=== PATIENT | female | born 1955 | race Caucasian/White ===

== ENCOUNTER 2018-12-14 20:11 | Inpatient (IN) ==
[2018-12-14 21:38] LABS: Basophils # 0.1 10*3/uL (0.0-0.2); Basophils % 0.7 % (0.0-0.8); Eosinophils # 0.2 10*3/uL (0.0-0.87); Eosinophils % 1.8 % (0.00-10.9); Hemoglobin 12.9 GM/DL (12.0-16.0); Immature Granulocytes % 0.8 %; Immature Granulocytes Absolute 0.07 #; Lymphocytes # 1.7 10*3/uL (1.4-4.0); Lymphocytes % 18.6 % (21.3-54.2); Mean Corpuscular HGB Conc 32.3 GM/DL (32-36); Mean Corpuscular Volume 94.3 FL (87-102); Mean Platelet Volume 10.8 FL (9.6-12.0); Monocytes % 7.7 % (1.7-12.7); Neutrophils % 70.4 % (38.7-73.9); Platelet Count 296 T/CUMM (130-400); Red Blood Count 4.24 MC/CUMM (3.8-5.5); Red Cell Distribution Width 14.5 % (9.3-17.3); White Blood Count 9.1 T/CUMM (4-12)
[2018-12-14 21:55] LABS: Calcium 8.8 MG/DL (8.5-10.1); Osmolality,Calculated 283.3 MOS/KG (273-304)
[2018-12-14] MEDS ORDERED: CEFTAROLINE 600 MG in SODIUM CHLORIDE 0.9% 100 ML IV STA (22:01)
[2018-12-14] MEDS ORDERED: MORPHINE 4 MG/1 ML VIAL IV STA (22:40)
[2018-12-14] MEDS ORDERED: ONDANSETRON 4 MG/2 ML VIAL IV PRN (22:44)
[2018-12-15] MEDS: MORPHINE 4 MG/1 ML VIAL IV PRN ×3 (02:56→18:34)
[2018-12-15 07:08] LABS: Basophils # 0.1 10*3/uL (0.0-0.2); Basophils % 0.7 % (0.0-0.8); Eosinophils # 0.2 10*3/uL (0.0-0.87); Eosinophils % 1.9 % (0.00-10.9); Hematocrit 39.4 VOL% (35.7-47.0); Hemoglobin 12.4 GM/DL (12.0-16.0); Immature Granulocytes % 0.7 %; Immature Granulocytes Absolute 0.06 #; Lymphocytes # 1.8 10*3/uL (1.4-4.0); Lymphocytes % 20.8 % (21.3-54.2); Mean Corpuscular HGB Conc 31.5 GM/DL (32-36); Mean Corpuscular Volume 96.3 FL (87-102); Mean Platelet Volume 10.9 FL (9.6-12.0); Monocytes % 9.5 % (1.7-12.7); Neutrophils % 66.4 % (38.7-73.9); Platelet Count 262 T/CUMM (130-400); Red Blood Count 4.09 MC/CUMM (3.8-5.5); Red Cell Distribution Width 14.7 % (9.3-17.3); White Blood Count 8.6 T/CUMM (4-12)
[2018-12-15 07:35] LABS: Bilirubin,Total 0.5 MG/DL (0.2-1.0); Osmolality,Calculated 284.1 MOS/KG (273-304); Total Protein 7.1 G/DL (6.4-8.3)
[2018-12-15] MEDS: BACITRACIN OINT 0.9 GM PACK TOP SCH ×3 (10:15→22:19)
[2018-12-15] MEDS: LEVOTHYROXINE 150 MCG TABLET PO SCH (10:15)
[2018-12-15] MEDS: LISINOPRIL 10 MG TABLET PO SCH (10:16)
[2018-12-15] MEDS: ENOXAPARIN 40 MG/0.4 ML SYRINGE SUBCUT SCH (10:16)
[2018-12-15] MEDS: CEFTAROLINE 600 MG in SODIUM CHLORIDE 0.9% 100 ML IV SCH ×2 (10:43→22:01)
[2018-12-15] MEDS ORDERED: DESITIN 4OZ/NYSTATIN 15 GRAM MIXTURE PASTE TOP SCH (12:30)
[2018-12-15] MEDS ORDERED: NICOTINE 14 MG/24 HR PATCH TRANSDERM PRN (14:32)
[2018-12-15] MEDS: ALLOPURINOL 300 MG TABLET PO SCH (22:00)
[2018-12-16] MEDS: MORPHINE 4 MG/1 ML VIAL IV PRN ×2 (00:22→11:20)
[2018-12-16 04:57] LABS: Basophils # 0.1 10*3/uL (0.0-0.2); Basophils % 0.9 % (0.0-0.8); Eosinophils # 0.1 10*3/uL (0.0-0.87); Eosinophils % 1.4 % (0.00-10.9); Hematocrit 37.3 VOL% (35.7-47.0); Hemoglobin 11.7 GM/DL (12.0-16.0); Immature Granulocytes % 0.9 %; Immature Granulocytes Absolute 0.07 #; Lymphocytes # 1.4 10*3/uL (1.4-4.0); Lymphocytes % 17.9 % (21.3-54.2); Mean Corpuscular HGB Conc 31.4 GM/DL (32-36); Mean Corpuscular Volume 95.4 FL (87-102); Mean Platelet Volume 10.7 FL (9.6-12.0); Monocytes % 10.1 % (1.7-12.7); Neutrophils % 68.8 % (38.7-73.9); Platelet Count 265 T/CUMM (130-400); Red Blood Count 3.91 MC/CUMM (3.8-5.5); Red Cell Distribution Width 14.6 % (9.3-17.3); White Blood Count 7.9 T/CUMM (4-12)
[2018-12-16 05:17] LABS: Calcium 8.5 MG/DL (8.5-10.1); Osmolality,Calculated 282.1 MOS/KG (273-304)
[2018-12-16] MEDS: LEVOTHYROXINE 150 MCG TABLET PO SCH (06:33)
[2018-12-16] MEDS: CEFTAROLINE 600 MG in SODIUM CHLORIDE 0.9% 100 ML IV SCH ×2 (08:50→21:57)
[2018-12-16] MEDS: ENOXAPARIN 40 MG/0.4 ML SYRINGE SUBCUT SCH (08:52)
[2018-12-16] MEDS: BACITRACIN OINT 0.9 GM PACK TOP SCH ×2 (08:52→21:56)
[2018-12-16] MEDS: LISINOPRIL 10 MG TABLET PO SCH (08:53)
[2018-12-16] MEDS: ALLOPURINOL 300 MG TABLET PO SCH (21:55)
[2018-12-17 05:44] LABS: Basophils # 0.1 10*3/uL (0.0-0.2); Eosinophils # 0.1 10*3/uL (0.0-0.87); Eosinophils % 1.6 % (0.00-10.9); Hematocrit 38.6 VOL% (35.7-47.0); Immature Granulocytes % 1.7 %; Immature Granulocytes Absolute 0.12 #; Lymphocytes # 1.8 10*3/uL (1.4-4.0); Lymphocytes % 25.3 % (21.3-54.2); Mean Corpuscular HGB Conc 31.1 GM/DL (32-36); Mean Corpuscular Volume 95.5 FL (87-102); Mean Platelet Volume 10.4 FL (9.6-12.0); Monocytes % 6.8 % (1.7-12.7); Neutrophils % 63.6 % (38.7-73.9); Platelet Count 265 T/CUMM (130-400); Red Blood Count 4.04 MC/CUMM (3.8-5.5); Red Cell Distribution Width 14.6 % (9.3-17.3); White Blood Count 6.9 T/CUMM (4-12)
[2018-12-17 06:14] LABS: Calcium 8.7 MG/DL (8.5-10.1); Osmolality,Calculated 283.1 MOS/KG (273-304)
[2018-12-17] MEDS: LEVOTHYROXINE 150 MCG TABLET PO SCH (06:28)
[2018-12-17] MEDS: LISINOPRIL 10 MG TABLET PO SCH (11:55)
[2018-12-17] MEDS: ENOXAPARIN 40 MG/0.4 ML SYRINGE SUBCUT SCH (11:56)
[2018-12-17 12:52] VITALS: BP 141/87
[2018-12-17] MEDS: CEFTAROLINE 600 MG in SODIUM CHLORIDE 0.9% 100 ML IV SCH (15:34)
[2018-12-17] MEDS: BACITRACIN OINT 0.9 GM PACK TOP SCH (15:34)
== END 2018-12-17 16:08 | disposition home or self-care (01) | DRG 602 ==
LOC: EDBD → EDUNIT# → N.ED 20:11 → N.EDINP 22:44 → N.3E 23:08
PROVIDERS: ADMIT Internal Medicine; ATTEND Internal Medicine

== ENCOUNTER 2019-02-18 11:36 | Inpatient (IN) ==
[2019-02-18] MEDS ORDERED: VANCOMYCIN INJ 1,000 MG in SODIUM CHLORIDE 0.9% 250 ML IV STA (11:55)
[2019-02-18] MEDS ORDERED: SODIUM CHLORIDE 0.9% 500 ML IV STA (11:56)
[2019-02-18] MEDS ORDERED: VANCOMYCIN 1,000 MG VIAL ONE (12:08)
[2019-02-18 12:25] LABS: Basophils # 0.1 10*3/uL (0.0-0.2); Eosinophils # 0.1 10*3/uL (0.0-0.87); Eosinophils % 1.6 % (0.00-10.9); Hematocrit 38.2 VOL% (35.7-47.0); Immature Granulocytes Absolute 0.08 #; Lymphocytes # 0.9 10*3/uL (1.4-4.0); Lymphocytes % 10.9 % (21.3-54.2); Mean Corpuscular HGB Conc 31.4 GM/DL (32-36); Mean Corpuscular Volume 92.9 FL (87-102); Mean Platelet Volume 10.3 FL (9.6-12.0); Monocytes % 8.3 % (1.7-12.7); Neutrophils % 77.2 % (38.7-73.9); Platelet Count 370 T/CUMM (130-400); Red Blood Count 4.11 MC/CUMM (3.8-5.5); Red Cell Distribution Width 14.8 % (9.3-17.3); White Blood Count 8.2 T/CUMM (4-12)
[2019-02-18 13:07] LABS: Alanine Aminotransferase 28 U/L (13-56); Albumin 2.9 G/DL (3.4-5.0); Alkaline Phosphatase 74 U/L (45-117); Aspartate Amino Transferase 22 U/L (0-37); Bilirubin,Total < 0.39 MG/DL (0.2-1.0); Blood Urea Nitrogen 17 MG/DL (7-18); Calcium 8.9 MG/DL (8.5-10.1); Estimated Glom Filtration Rate 117 ML/MIN; Glucose 87 MG/DL (74-106); Osmolality,Calculated 279.4 MOS/KG (273-304); Total Protein 7.1 G/DL (6.4-8.3)
[2019-02-18] MEDS ORDERED: PROMETHAZINE 25 MG/1 ML VIAL IM PRN (14:47)
[2019-02-18] MEDS ORDERED: ACETAMINOPHEN 325 MG TABLET PO PRN (14:47)
[2019-02-18] MEDS ORDERED: ONDANSETRON 4 MG/2 ML VIAL IV PRN (14:47)
[2019-02-18] MEDS ORDERED: VANCOMYCIN INJ 1,000 MG in SODIUM CHLORIDE 0.9% 250 ML IV ONE (16:30)
[2019-02-18] MEDS: SODIUM CHLORIDE 0.9% 1,000 ML IV SCH (16:40)
[2019-02-18] MEDS: CEFEPIME 1,000 MG in SODIUM CHLORIDE 0.9% 100 ML IV SCH ×2 (17:30→21:26)
[2019-02-18] MEDS ORDERED: ENOXAPARIN 40 MG/0.4 ML SYRINGE SUBCUT SCH (21:00)
[2019-02-19] MEDS: CEFEPIME 1,000 MG in SODIUM CHLORIDE 0.9% 100 ML IV SCH ×2 (03:07→13:57)
[2019-02-19] MEDS ORDERED: VANCOMYCIN INJ 1,750 MG in SODIUM CHLORIDE 0.9% 500 ML IV SCH (06:00)
[2019-02-19 06:15] LABS: Basophils # 0.1 10*3/uL (0.0-0.2); Basophils % 0.6 % (0.0-0.8); Eosinophils # 0.1 10*3/uL (0.0-0.87); Eosinophils % 0.9 % (0.00-10.9); Hematocrit 38.7 VOL% (35.7-47.0); Hemoglobin 11.8 GM/DL (12.0-16.0); Immature Granulocytes % 0.7 %; Immature Granulocytes Absolute 0.06 #; Lymphocytes # 0.6 10*3/uL (1.4-4.0); Lymphocytes % 7.2 % (21.3-54.2); Mean Corpuscular HGB Conc 30.5 GM/DL (32-36); Mean Corpuscular Volume 94.4 FL (87-102); Mean Platelet Volume 10.1 FL (9.6-12.0); Monocytes % 9.7 % (1.7-12.7); Neutrophils % 80.9 % (38.7-73.9); Platelet Count 364 T/CUMM (130-400); Red Cell Distribution Width 15.1 % (9.3-17.3); White Blood Count 8.6 T/CUMM (4-12)
[2019-02-19 06:17] LABS: Apearance,Urine CLEAR (Clear); Bacteria,Urine Occasional /HPF (Few); Bilirubin,Urine Negative (Negative); Blood, Urine Negative (Negative); Glucose,Urine (UA) Negative (Negative); Hyaline Casts,Urine 4 /LPF (0-3); Ketones,Urine Negative (Negative); Mucus,Urine Occasional /LPF (Occasional); Nitrite,Urine Negative (Negative); Protein,Urine Negative; RBC,Urine 2 /HPF (0-4); Squamous Epithelial Cell,Urine Occasional /HPF (0-10); Urine Color Yellow (Yellow); Urine Specific Gravity 1.019 (1.001-1.035); Urine Urobilinogen < 2.0 EU/DL (0.2-1.0); WBC,Urine 4 /HPF (0-6)
[2019-02-19] MEDS: SODIUM CHLORIDE 0.9% 1,000 ML IV SCH ×3 (06:30→17:29)
[2019-02-19 06:47] LABS: Albumin 2.1 G/DL (3.4-5.0); Bilirubin,Total 0.4 MG/DL (0.2-1.0); Calcium 8.2 MG/DL (8.5-10.1); Osmolality,Calculated 283.1 MOS/KG (273-304); Risk Ratio 3.2; Thyroid Stimulating Hormone 4.6 uIU/ml (0.358-3.74); Total Protein 6.6 G/DL (6.4-8.3); VLDL CHOLESTEROL 11.8 MG/DL
[2019-02-19] MEDS ORDERED: PANTOPRAZOLE 40 MG TABLET PO SCH (09:00)
[2019-02-19 11:08] VITALS: BP 105/67
[2019-02-19] MEDS ORDERED: COLLAGENASE OINT 30 GM TUBE TOP SCH (11:30)
[2019-02-19] MEDS ORDERED: ZINC OXIDE PASTE 113 GM TUBE TOP SCH (13:00)
[2019-02-19] MEDS ORDERED: ALLOPURINOL 300 MG TABLET PO SCH (18:00)
[2019-02-20] MEDS ORDERED: LEVOTHYROXINE 150 MCG TABLET PO SCH (07:30)
[2019-02-20] MEDS ORDERED: LISINOPRIL 10 MG TABLET PO SCH (07:30)
== END 2019-02-19 15:50 | disposition home or self-care (01) | DRG 299 ==
LOC: EDBD → EDUNIT# → N.ED 11:36 → SUATTDRO 14:47 → N.EDINP 14:47 → N.3E 16:02
PROVIDERS: ADMIT Internal Medicine; ATTEND Internal Medicine Cardiovascular Disease

== ENCOUNTER 2019-03-17 13:28 | Inpatient (IN) ==
[2019-03-17] MEDS ORDERED: LEVOFLOXACIN INJ 750 MG in PREMIX 1 EACH IV STA (14:41)
[2019-03-17] MEDS ORDERED: LEVOFLOXACIN INJ 150 ML IV ONE (14:49)
[2019-03-17 14:50] LABS: Basophils # 0.1 10*3/uL (0.0-0.2); Basophils % 0.8 % (0.0-0.8); Eosinophils # 0.1 10*3/uL (0.0-0.87); Hematocrit 39.7 VOL% (35.7-47.0); Immature Granulocytes % 3.6 %; Immature Granulocytes Absolute 0.41 #; Lymphocytes % 8.6 % (21.3-54.2); Mean Corpuscular HGB Conc 32.7 GM/DL (32-36); Mean Corpuscular Volume 87.3 FL (87-102); Mean Platelet Volume 9.5 FL (9.6-12.0); Monocytes % 6.6 % (1.7-12.7); Neutrophils % 79.4 % (38.7-73.9); Platelet Count 444 T/CUMM (130-400); Red Blood Count 4.55 MC/CUMM (3.8-5.5); Red Cell Distribution Width 14.9 % (9.3-17.3); White Blood Count 11.5 T/CUMM (4-12)
[2019-03-17 15:00] LABS: INR 0.9; PT Patient Result 9.9 SECS (9.6-12.2); Partial Thromboplastin Time 26.6 SECS (20.8-36.0)
[2019-03-17 15:12] LABS: Alanine Aminotransferase 28 U/L (13-56); Albumin 3.2 G/DL (3.4-5.0); Alkaline Phosphatase 83 U/L (45-117); Aspartate Amino Transferase 30 U/L (0-37); Bilirubin,Total < 0.39 MG/DL (0.2-1.0); Blood Urea Nitrogen 33 MG/DL (7-18); Estimated Glom Filtration Rate 77 ML/MIN; Glucose 98 MG/DL (74-106); Osmolality,Calculated 259.4 MOS/KG (273-304); Total Protein 8.6 G/DL (6.4-8.3)
[2019-03-17] MEDS ORDERED: MORPHINE 4 MG/1 ML VIAL IV ONE (15:19)
[2019-03-17] MEDS ORDERED: ONDANSETRON 4 MG/2 ML VIAL IV STA (15:19)
[2019-03-17] MEDS ORDERED: MORPHINE 4 MG/1 ML VIAL ONE (15:20)
[2019-03-17] MEDS ORDERED: ONDANSETRON 4 MG/2 ML VIAL ONE (15:20)
[2019-03-17] MEDS ORDERED: guaiFENesin/DM ER 600-30 MG TABLET PO PRN (17:51)
[2019-03-17] MEDS: ASCORBIC ACID 500 MG TABLET PO SCH (21:26)
[2019-03-17] MEDS: DOCUSATE SODIUM 100 MG CAPSULE PO SCH (21:26)
[2019-03-17] MEDS: SODIUM CHLORIDE 0.45% 1,000 ML IV SCH (21:29)
[2019-03-17] MEDS: VANCOMYCIN INJ 1,750 MG in SODIUM CHLORIDE 0.9% 500 ML IV SCH (21:37)
[2019-03-17] MEDS: HEPARIN 5,000 UNIT/1 ML VIAL SUBCUT SCH (21:39)
[2019-03-18] MEDS: MORPHINE 4 MG/1 ML VIAL IV PRN (01:17)
[2019-03-18 05:01] LABS: Basophils % 0.5 % (0.0-0.8); Eosinophils # 0.1 10*3/uL (0.0-0.87); Eosinophils % 0.9 % (0.00-10.9); Hematocrit 34.1 VOL% (35.7-47.0); Hemoglobin 11.1 GM/DL (12.0-16.0); Immature Granulocytes % 1.7 %; Immature Granulocytes Absolute 0.14 #; Lymphocytes # 0.7 10*3/uL (1.4-4.0); Lymphocytes % 7.8 % (21.3-54.2); Mean Corpuscular HGB Conc 32.6 GM/DL (32-36); Mean Corpuscular Volume 87.2 FL (87-102); Mean Platelet Volume 9.8 FL (9.6-12.0); Monocytes % 9.3 % (1.7-12.7); Neutrophils % 79.8 % (38.7-73.9); Platelet Count 371 T/CUMM (130-400); Red Blood Count 3.91 MC/CUMM (3.8-5.5); Red Cell Distribution Width 14.8 % (9.3-17.3); White Blood Count 8.5 T/CUMM (4-12)
[2019-03-18 05:27] LABS: Alanine Aminotransferase 26 U/L (13-56); Albumin 2.3 G/DL (3.4-5.0); Alkaline Phosphatase 66 U/L (45-117); Aspartate Amino Transferase 54 U/L (0-37); Bilirubin,Total < 0.39 MG/DL (0.2-1.0); Blood Urea Nitrogen 18 MG/DL (7-18); Calcium 8.8 MG/DL (8.5-10.1); Estimated Glom Filtration Rate 121 ML/MIN; Glucose 85 MG/DL (74-106); HDL Cholesterol 42 MG/DL (40-60); Osmolality,Calculated 268.2 MOS/KG (273-304); Risk Ratio 2.98; Total Protein 6.6 G/DL (6.4-8.3); Triglycerides 90 MG/DL (2-150)
[2019-03-18] MEDS: HEPARIN 5,000 UNIT/1 ML VIAL SUBCUT SCH ×3 (05:50→16:36)
[2019-03-18] MEDS: LEVOTHYROXINE 150 MCG TABLET PO SCH (05:50)
[2019-03-18] MEDS ORDERED: LISINOPRIL/HCTZ 10-12.5 MG TABLET PO SCH (09:00)
[2019-03-18] MEDS: DOCUSATE SODIUM 100 MG CAPSULE PO SCH ×2 (09:24→20:06)
[2019-03-18] MEDS: LISINOPRIL 20 MG TABLET PO SCH (09:24)
[2019-03-18] MEDS: ASCORBIC ACID 500 MG TABLET PO SCH ×2 (09:24→20:06)
[2019-03-18] MEDS: VANCOMYCIN INJ 1,750 MG in SODIUM CHLORIDE 0.9% 500 ML IV SCH ×2 (10:10→20:06)
[2019-03-18] MEDS: ALLOPURINOL 300 MG TABLET PO SCH ×2 (10:48→18:05)
[2019-03-18] MEDS ORDERED: MAGNESIUM SULF RIDER 2 GM in PREMIX 1 EACH IV ONE (11:17)
[2019-03-18] MEDS ORDERED: BUPIVACAINE MPF 0.25% 30 ML VIAL ONE (12:00)
[2019-03-18] MEDS ORDERED: LIDOCAINE 1%/EPI INJ 20 ML VIAL ONE (12:00)
[2019-03-18] MEDS ORDERED: METHYL SALICYLATE 60 ML BOTTLE TOP ONE (12:08)
[2019-03-18] MEDS ORDERED: MIDAZOLAM 2 MG/2 ML VIAL ONE (13:30)
[2019-03-18] MEDS ORDERED: SEVOFLURANE 1 UNIT/15 MINUTE INH ONE (13:30)
[2019-03-18] MEDS ORDERED: LIDOCAINE 2% 5 ML VIAL ONE (13:31)
[2019-03-18] MEDS ORDERED: PROPOFOL 200 MG/20 ML VIAL IV ONE (13:31)
[2019-03-18] MEDS ORDERED: ePHEDrine 50 MG/ML AMP ONE (13:32)
[2019-03-18] MEDS ORDERED: fentaNYL 100 MCG/2 ML VIAL ONE (13:32)
[2019-03-18] MEDS ORDERED: KETAMINE 500 MG/10 ML VIAL ONE (13:32)
[2019-03-18] MEDS ORDERED: ONDANSETRON 4 MG/2 ML VIAL ONE ×2 (13:32→13:49)
[2019-03-18] MEDS ORDERED: ROCURONIUM 100 MG/10 ML VIAL IV ONE (13:33)
[2019-03-18] MEDS ORDERED: SUCCINYLCHOLINE 200 MG/10 ML VIAL ONE (13:33)
[2019-03-18] MEDS ORDERED: ETOMIDATE 40 MG/20 ML VIAL IV ONE (13:33)
[2019-03-18] MEDS ORDERED: PHENYLEPHRINE 1 MG/10 ML SYRINGE IV ONE (13:33)
[2019-03-18] MEDS ORDERED: ONDANSETRON 4 MG/2 ML VIAL IV PRN (13:47)
[2019-03-18] MEDS: HYDROmorphone 2 MG/1 ML VIAL IV PRN ×3 (13:47→14:10)
[2019-03-18] MEDS ORDERED: HYDROmorphone 2 MG/1 ML VIAL ONE (13:49)
[2019-03-18] MEDS: SODIUM CHLORIDE 0.45% 1,000 ML IV SCH (15:06)
[2019-03-18] MEDS: PANTOPRAZOLE 40 MG TABLET PO SCH (15:30)
[2019-03-18] MEDS: MULTIVITAMIN (BEROCCA) TABLET PO SCH (15:30)
[2019-03-18] MEDS: LEVOFLOXACIN INJ 750 MG in PREMIX 1 EACH IV SCH (18:05)
[2019-03-19] MEDS: MORPHINE 4 MG/1 ML VIAL IV PRN ×2 (00:51→11:51)
[2019-03-19] MEDS: HEPARIN 5,000 UNIT/1 ML VIAL SUBCUT SCH ×3 (00:51→16:12)
[2019-03-19 06:10] LABS: Alanine Aminotransferase 24 U/L (13-56); Alkaline Phosphatase 61 U/L (45-117); Aspartate Amino Transferase 43 U/L (0-37); Bilirubin,Total < 0.39 MG/DL (0.2-1.0); Blood Urea Nitrogen 10 MG/DL (7-18); Estimated Glom Filtration Rate 127 ML/MIN; Glucose 108 MG/DL (74-106); Osmolality,Calculated 272.8 MOS/KG (273-304); Total Protein 5.9 G/DL (6.4-8.3)
[2019-03-19] MEDS: LEVOTHYROXINE 150 MCG TABLET PO SCH (06:25)
[2019-03-19 07:01] LABS: Basophils % 0.5 % (0.0-0.8); Eosinophils # 0.1 10*3/uL (0.0-0.87); Eosinophils % 1.4 % (0.00-10.9); Hematocrit 32.1 VOL% (35.7-47.0); Hemoglobin 10.3 GM/DL (12.0-16.0); Immature Granulocytes % 1.8 %; Immature Granulocytes Absolute 0.13 #; Lymphocytes # 0.8 10*3/uL (1.4-4.0); Lymphocytes % 10.6 % (21.3-54.2); Mean Corpuscular HGB Conc 32.1 GM/DL (32-36); Mean Corpuscular Volume 89.4 FL (87-102); Mean Platelet Volume 9.9 FL (9.6-12.0); Monocytes % 9.4 % (1.7-12.7); Neutrophils % 76.3 % (38.7-73.9); Platelet Count 333 T/CUMM (130-400); Red Blood Count 3.59 MC/CUMM (3.8-5.5); Red Cell Distribution Width 15.2 % (9.3-17.3); White Blood Count 7.3 T/CUMM (4-12)
[2019-03-19] MEDS: DOCUSATE SODIUM 100 MG CAPSULE PO SCH ×2 (09:13→20:23)
[2019-03-19] MEDS: LISINOPRIL 20 MG TABLET PO SCH (09:13)
[2019-03-19] MEDS: MULTIVITAMIN (BEROCCA) TABLET PO SCH (09:13)
[2019-03-19] MEDS: ASCORBIC ACID 500 MG TABLET PO SCH ×2 (09:13→20:22)
[2019-03-19] MEDS: PANTOPRAZOLE 40 MG TABLET PO SCH (09:13)
[2019-03-19] MEDS: SODIUM HYPOCHLORITE 0.25% IRRIG 473 ML BOTTLE TOP SCH (09:40)
[2019-03-19] MEDS: VANCOMYCIN INJ 1,750 MG in SODIUM CHLORIDE 0.9% 500 ML IV SCH ×2 (10:14→21:54)
[2019-03-19] MEDS: SODIUM CHLORIDE 0.45% 1,000 ML IV SCH (10:24)
[2019-03-19] MEDS: LEVOFLOXACIN INJ 750 MG in PREMIX 1 EACH IV SCH (17:47)
[2019-03-19] MEDS: ALLOPURINOL 300 MG TABLET PO SCH (17:47)
[2019-03-19] MEDS ORDERED: VANCOMYCIN INJ 1,750 MG in SODIUM CHLORIDE 0.9% 500 ML IV SCH (23:30)
[2019-03-20] MEDS: HEPARIN 5,000 UNIT/1 ML VIAL SUBCUT SCH ×3 (00:29→17:48)
[2019-03-20 05:38] LABS: Basophils # 0.1 10*3/uL (0.0-0.2); Basophils % 0.7 % (0.0-0.8); Eosinophils # 0.2 10*3/uL (0.0-0.87); Eosinophils % 2.6 % (0.00-10.9); Hematocrit 30.6 VOL% (35.7-47.0); Hemoglobin 9.6 GM/DL (12.0-16.0); Immature Granulocytes % 3.1 %; Immature Granulocytes Absolute 0.23 #; Lymphocytes # 0.9 10*3/uL (1.4-4.0); Lymphocytes % 11.4 % (21.3-54.2); Mean Corpuscular HGB Conc 31.4 GM/DL (32-36); Mean Corpuscular Volume 90.8 FL (87-102); Mean Platelet Volume 9.9 FL (9.6-12.0); Monocytes % 9.4 % (1.7-12.7); Neutrophils % 72.8 % (38.7-73.9); Platelet Count 326 T/CUMM (130-400); Red Blood Count 3.37 MC/CUMM (3.8-5.5); Red Cell Distribution Width 15.4 % (9.3-17.3); White Blood Count 7.4 T/CUMM (4-12)
[2019-03-20] MEDS: LEVOTHYROXINE 150 MCG TABLET PO SCH (05:47)
[2019-03-20 06:04] LABS: Albumin 1.9 G/DL (3.4-5.0); Bilirubin,Total 0.5 MG/DL (0.2-1.0); Osmolality,Calculated 277.5 MOS/KG (273-304); Total Protein 5.9 G/DL (6.4-8.3)
[2019-03-20] MEDS: MULTIVITAMIN (BEROCCA) TABLET PO SCH (08:11)
[2019-03-20] MEDS: DOCUSATE SODIUM 100 MG CAPSULE PO SCH ×2 (08:11→21:34)
[2019-03-20] MEDS: ASCORBIC ACID 500 MG TABLET PO SCH ×2 (08:11→21:34)
[2019-03-20] MEDS: PANTOPRAZOLE 40 MG TABLET PO SCH (08:12)
[2019-03-20] MEDS: LISINOPRIL 20 MG TABLET PO SCH (08:20)
[2019-03-20] MEDS: SODIUM HYPOCHLORITE 0.25% IRRIG 473 ML BOTTLE TOP SCH (08:30)
[2019-03-20] MEDS: MORPHINE 4 MG/1 ML VIAL IV PRN (11:28)
[2019-03-20] MEDS: VANCOMYCIN INJ 1,750 MG in SODIUM CHLORIDE 0.9% 500 ML IV SCH (17:53)
[2019-03-20] MEDS: LEVOFLOXACIN INJ 750 MG in PREMIX 1 EACH IV SCH (21:40)
[2019-03-20] MEDS: ALLOPURINOL 300 MG TABLET PO SCH (21:40)
[2019-03-20 23:51] LABS: Apearance,Urine Slightly Hazy (Clear); Bilirubin,Urine Negative (Negative); Blood, Urine Negative (Negative); Glucose,Urine (UA) Negative (Negative); Ketones,Urine Negative (Negative); Mucus,Urine Occasional /LPF (Occasional); Nitrite,Urine Negative (Negative); Protein,Urine Negative; RBC,Urine 2 /HPF (0-4); Squamous Epithelial Cell,Urine Occasional /HPF (0-10); Urine Color Straw (Yellow); Urine Specific Gravity 1.009 (1.001-1.035); Urine Urobilinogen < 2.0 EU/DL (0.2-1.0); WBC,Urine 2 /HPF (0-6)
[2019-03-21] MEDS: HEPARIN 5,000 UNIT/1 ML VIAL SUBCUT SCH ×4 (00:23→23:33)
[2019-03-21 04:44] LABS: Basophils # 0.1 10*3/uL (0.0-0.2); Basophils % 0.7 % (0.0-0.8); Eosinophils # 0.2 10*3/uL (0.0-0.87); Eosinophils % 2.1 % (0.00-10.9); Hematocrit 32.5 VOL% (35.7-47.0); Immature Granulocytes % 2.7 %; Immature Granulocytes Absolute 0.19 #; Lymphocytes # 0.9 10*3/uL (1.4-4.0); Lymphocytes % 12.6 % (21.3-54.2); Mean Corpuscular HGB Conc 30.8 GM/DL (32-36); Mean Corpuscular Volume 91.8 FL (87-102); Mean Platelet Volume 9.4 FL (9.6-12.0); Monocytes % 8.7 % (1.7-12.7); Neutrophils % 73.2 % (38.7-73.9); Platelet Count 323 T/CUMM (130-400); Red Blood Count 3.54 MC/CUMM (3.8-5.5); Red Cell Distribution Width 15.7 % (9.3-17.3); White Blood Count 7.1 T/CUMM (4-12)
[2019-03-21 05:08] LABS: Albumin 1.9 G/DL (3.4-5.0); Bilirubin,Total 0.7 MG/DL (0.2-1.0); Calcium 8.4 MG/DL (8.5-10.1); Total Protein 6.1 G/DL (6.4-8.3)
[2019-03-21 05:16] LABS: Band Neutrophils 2 % (0-10); Eosinophils 2 % (0-10); Lymphocytes 15 % (20-55); Segmented Neutrophils 74 % (50-85); Total Cells Counted 100
[2019-03-21 05:17] LABS: Hypochromasia 1+; Platelet Estimate Normal
[2019-03-21] MEDS: LEVOTHYROXINE 150 MCG TABLET PO SCH (06:05)
[2019-03-21] MEDS: PANTOPRAZOLE 40 MG TABLET PO SCH (09:49)
[2019-03-21] MEDS: LISINOPRIL 20 MG TABLET PO SCH (09:49)
[2019-03-21] MEDS: DOCUSATE SODIUM 100 MG CAPSULE PO SCH ×2 (09:49→20:02)
[2019-03-21] MEDS: ASCORBIC ACID 500 MG TABLET PO SCH ×2 (09:50→20:02)
[2019-03-21] MEDS: MULTIVITAMIN (BEROCCA) TABLET PO SCH (09:50)
[2019-03-21] MEDS: SODIUM HYPOCHLORITE 0.25% IRRIG 473 ML BOTTLE TOP SCH (09:52)
[2019-03-21] MEDS: MORPHINE 4 MG/1 ML VIAL IV PRN (12:34)
[2019-03-21] MEDS: VANCOMYCIN INJ 1,750 MG in SODIUM CHLORIDE 0.9% 500 ML IV SCH (12:39)
[2019-03-21] MEDS: ALLOPURINOL 300 MG TABLET PO SCH (17:46)
[2019-03-21] MEDS: LEVOFLOXACIN INJ 750 MG in PREMIX 1 EACH IV SCH (17:54)
[2019-03-21] MEDS: ONDANSETRON 4 MG/2 ML VIAL IV PRN (21:30)
[2019-03-21] MEDS: ZALEPLON 5 MG CAPSULE PO PRN (23:36)
[2019-03-22] MEDS: VANCOMYCIN INJ 1,750 MG in SODIUM CHLORIDE 0.9% 500 ML IV SCH ×2 (04:35→22:25)
[2019-03-22 05:07] LABS: Basophils # 0.1 10*3/uL (0.0-0.2); Basophils % 1.1 % (0.0-0.8); Eosinophils # 0.2 10*3/uL (0.0-0.87); Eosinophils % 3.2 % (0.00-10.9); Hemoglobin 9.6 GM/DL (12.0-16.0); Immature Granulocytes % 4.2 %; Lymphocytes # 1.1 10*3/uL (1.4-4.0); Lymphocytes % 14.5 % (21.3-54.2); Mean Platelet Volume 9.7 FL (9.6-12.0); Monocytes % 11.1 % (1.7-12.7); Neutrophils % 65.9 % (38.7-73.9); Platelet Count 310 T/CUMM (130-400); Red Blood Count 3.37 MC/CUMM (3.8-5.5); White Blood Count 7.2 T/CUMM (4-12)
[2019-03-22] MEDS: LEVOTHYROXINE 150 MCG TABLET PO SCH (05:45)
[2019-03-22 05:48] LABS: Albumin 1.9 G/DL (3.4-5.0); Bilirubin,Total 0.7 MG/DL (0.2-1.0); Calcium 8.4 MG/DL (8.5-10.1); Osmolality,Calculated 282.3 MOS/KG (273-304); Total Protein 6.1 G/DL (6.4-8.3)
[2019-03-22 06:05] LABS: Band Neutrophils 1 % (0-10); Eosinophils 3 % (0-10); Lymphocytes 15 % (20-55); Metamyelocytes 2 %; Segmented Neutrophils 68 % (50-85); Total Cells Counted 100
[2019-03-22 06:06] LABS: Platelet Estimate Normal
[2019-03-22] MEDS: LISINOPRIL 20 MG TABLET PO SCH (08:47)
[2019-03-22] MEDS: MULTIVITAMIN (BEROCCA) TABLET PO SCH (08:47)
[2019-03-22] MEDS: ASCORBIC ACID 500 MG TABLET PO SCH ×2 (08:47→20:33)
[2019-03-22] MEDS: PANTOPRAZOLE 40 MG TABLET PO SCH (08:47)
[2019-03-22] MEDS: DOCUSATE SODIUM 100 MG CAPSULE PO SCH ×2 (08:48→20:33)
[2019-03-22] MEDS: MORPHINE 4 MG/1 ML VIAL IV PRN ×3 (08:48→17:02)
[2019-03-22] MEDS: HEPARIN 5,000 UNIT/1 ML VIAL SUBCUT SCH ×2 (08:49→17:09)
[2019-03-22] MEDS: SODIUM HYPOCHLORITE 0.25% IRRIG 473 ML BOTTLE TOP SCH (11:00)
[2019-03-22] MEDS: ALLOPURINOL 300 MG TABLET PO SCH (18:40)
[2019-03-22] MEDS: LEVOFLOXACIN INJ 750 MG in PREMIX 1 EACH IV SCH (18:42)
[2019-03-22] MEDS: ZALEPLON 5 MG CAPSULE PO PRN (20:33)
[2019-03-23] MEDS: HEPARIN 5,000 UNIT/1 ML VIAL SUBCUT SCH ×4 (00:28→23:59)
[2019-03-23 05:19] LABS: Free T4 (Free Thyroxine) 1.39 NG/DL (0.76-1.46); Uric Acid 3.5 MG/DL (2.6-6.0)
[2019-03-23] MEDS: LEVOTHYROXINE 150 MCG TABLET PO SCH (06:08)
[2019-03-23] MEDS: DOCUSATE SODIUM 100 MG CAPSULE PO SCH ×2 (09:04→20:58)
[2019-03-23] MEDS: MULTIVITAMIN (BEROCCA) TABLET PO SCH (09:04)
[2019-03-23] MEDS: ASCORBIC ACID 500 MG TABLET PO SCH ×2 (09:04→20:58)
[2019-03-23] MEDS: PANTOPRAZOLE 40 MG TABLET PO SCH (09:04)
[2019-03-23] MEDS: LISINOPRIL 20 MG TABLET PO SCH (09:04)
[2019-03-23] MEDS: NICOTINE 14 MG/24 HR PATCH TRANSDERM SCH (09:05)
[2019-03-23] MEDS: MORPHINE 4 MG/1 ML VIAL IV PRN ×3 (09:06→18:08)
[2019-03-23] MEDS: SODIUM HYPOCHLORITE 0.25% IRRIG 473 ML BOTTLE TOP SCH (09:30)
[2019-03-23] MEDS: LEVOFLOXACIN 750 MG TABLET PO SCH (16:37)
[2019-03-23] MEDS: ALLOPURINOL 300 MG TABLET PO SCH (18:57)
[2019-03-23] MEDS: LINEZOLID 600 MG TABLET PO SCH (20:58)
[2019-03-23] MEDS: diphenhydrAMINE CAP 25 MG CAPSULE PO PRN (21:21)
[2019-03-24 04:31] LABS: Basophils # 0.1 10*3/uL (0.0-0.2); Basophils % 0.8 % (0.0-0.8); Eosinophils # 0.2 10*3/uL (0.0-0.87); Eosinophils % 2.8 % (0.00-10.9); Hematocrit 32.6 VOL% (35.7-47.0); Hemoglobin 9.9 GM/DL (12.0-16.0); Immature Granulocytes % 4.4 %; Immature Granulocytes Absolute 0.27 #; Lymphocytes # 0.9 10*3/uL (1.4-4.0); Lymphocytes % 14.6 % (21.3-54.2); Mean Corpuscular HGB Conc 30.4 GM/DL (32-36); Mean Corpuscular Volume 91.6 FL (87-102); Mean Platelet Volume 10.1 FL (9.6-12.0); Monocytes % 12.2 % (1.7-12.7); Neutrophils % 65.2 % (38.7-73.9); Platelet Count 301 T/CUMM (130-400); Red Blood Count 3.56 MC/CUMM (3.8-5.5); Red Cell Distribution Width 16.5 % (9.3-17.3); White Blood Count 6.2 T/CUMM (4-12)
[2019-03-24 04:57] LABS: Calcium 8.7 MG/DL (8.5-10.1); Osmolality,Calculated 282.4 MOS/KG (273-304)
[2019-03-24] MEDS: LEVOTHYROXINE 150 MCG TABLET PO SCH (06:06)
[2019-03-24] MEDS ORDERED: MAGNESIUM SULF RIDER 2 GM in PREMIX 1 EACH IV PRN (08:07)
[2019-03-24] MEDS ORDERED: MAGNESIUM SULF RIDER 4 GM in PREMIX 1 EACH IV PRN (08:07)
[2019-03-24] MEDS: HEPARIN 5,000 UNIT/1 ML VIAL SUBCUT SCH ×2 (08:53→15:26)
[2019-03-24] MEDS: PANTOPRAZOLE 40 MG TABLET PO SCH (09:38)
[2019-03-24] MEDS: MULTIVITAMIN (BEROCCA) TABLET PO SCH (09:38)
[2019-03-24] MEDS: ASCORBIC ACID 500 MG TABLET PO SCH ×2 (09:38→20:40)
[2019-03-24] MEDS: SODIUM HYPOCHLORITE 0.25% IRRIG 473 ML BOTTLE TOP SCH (09:38)
[2019-03-24] MEDS: LEVOFLOXACIN 750 MG TABLET PO SCH (09:38)
[2019-03-24] MEDS: NICOTINE 14 MG/24 HR PATCH TRANSDERM SCH (09:38)
[2019-03-24] MEDS: LINEZOLID 600 MG TABLET PO SCH ×2 (09:38→20:39)
[2019-03-24] MEDS: DOCUSATE SODIUM 100 MG CAPSULE PO SCH ×2 (09:38→20:39)
[2019-03-24] MEDS: LISINOPRIL 20 MG TABLET PO SCH (09:40)
[2019-03-24] MEDS: MORPHINE 4 MG/1 ML VIAL IV PRN (10:52)
[2019-03-24] MEDS: DESITIN 4OZ/NYSTATIN 15 GRAM MIXTURE PASTE TOP SCH ×2 (11:00→20:40)
[2019-03-24] MEDS: ALLOPURINOL 300 MG TABLET PO SCH (17:28)
[2019-03-24] MEDS: ZALEPLON 5 MG CAPSULE PO PRN (20:40)
[2019-03-25] MEDS: HEPARIN 5,000 UNIT/1 ML VIAL SUBCUT SCH ×4 (00:09→23:50)
[2019-03-25] MEDS: LEVOTHYROXINE 150 MCG TABLET PO SCH (06:23)
[2019-03-25] MEDS: MULTIVITAMIN (BEROCCA) TABLET PO SCH (10:31)
[2019-03-25] MEDS: DOCUSATE SODIUM 100 MG CAPSULE PO SCH ×2 (10:31→20:47)
[2019-03-25] MEDS: LISINOPRIL 20 MG TABLET PO SCH (10:31)
[2019-03-25] MEDS: LINEZOLID 600 MG TABLET PO SCH ×2 (10:31→20:47)
[2019-03-25] MEDS: LEVOFLOXACIN 750 MG TABLET PO SCH (10:31)
[2019-03-25] MEDS: PANTOPRAZOLE 40 MG TABLET PO SCH (10:31)
[2019-03-25] MEDS: SODIUM HYPOCHLORITE 0.25% IRRIG 473 ML BOTTLE TOP SCH (10:32)
[2019-03-25] MEDS: NICOTINE 14 MG/24 HR PATCH TRANSDERM SCH (10:32)
[2019-03-25] MEDS: DESITIN 4OZ/NYSTATIN 15 GRAM MIXTURE PASTE TOP SCH ×2 (10:34→20:48)
[2019-03-25] MEDS: ASCORBIC ACID 500 MG TABLET PO SCH ×2 (10:34→20:47)
[2019-03-25] MEDS ORDERED: MAGNESIUM CITRATE 300 ML BOTTLE PO ONE (10:38)
[2019-03-25] MEDS ORDERED: SODIUM PHOSPHATE ENEMA 133 ML BOTTLE RECTAL PRN (10:38)
[2019-03-25] MEDS: MORPHINE 4 MG/1 ML VIAL IV PRN (16:29)
[2019-03-25] MEDS: ALLOPURINOL 300 MG TABLET PO SCH (17:20)
[2019-03-25] MEDS: ZALEPLON 5 MG CAPSULE PO PRN (20:47)
[2019-03-26] MEDS: LEVOTHYROXINE 150 MCG TABLET PO SCH (05:42)
[2019-03-26] MEDS: LINEZOLID 600 MG TABLET PO SCH ×2 (09:23→20:06)
[2019-03-26] MEDS: LISINOPRIL 20 MG TABLET PO SCH (09:24)
[2019-03-26] MEDS: ASCORBIC ACID 500 MG TABLET PO SCH ×2 (09:24→20:06)
[2019-03-26] MEDS: MULTIVITAMIN (BEROCCA) TABLET PO SCH (09:24)
[2019-03-26] MEDS: LEVOFLOXACIN 750 MG TABLET PO SCH (09:25)
[2019-03-26] MEDS: DOCUSATE SODIUM 100 MG CAPSULE PO SCH ×2 (09:25→20:15)
[2019-03-26] MEDS: NICOTINE 14 MG/24 HR PATCH TRANSDERM SCH (09:25)
[2019-03-26] MEDS: HEPARIN 5,000 UNIT/1 ML VIAL SUBCUT SCH ×2 (09:27→16:14)
[2019-03-26] MEDS: DESITIN 4OZ/NYSTATIN 15 GRAM MIXTURE PASTE TOP SCH ×2 (09:29→20:08)
[2019-03-26] MEDS: SODIUM HYPOCHLORITE 0.25% IRRIG 473 ML BOTTLE TOP SCH (09:29)
[2019-03-26] MEDS: PANTOPRAZOLE 40 MG TABLET PO SCH (12:36)
[2019-03-26] MEDS: MORPHINE 4 MG/1 ML VIAL IV PRN ×2 (12:39→23:57)
[2019-03-26] MEDS ORDERED: FUROSEMIDE 40 MG/4 ML VIAL IV ONE (16:45)
[2019-03-26] MEDS: ALLOPURINOL 300 MG TABLET PO SCH (17:06)
[2019-03-26] MEDS: SIMETHICONE CHEW 125 MG TABLET PO PRN ×3 (17:06→23:58)
[2019-03-26] MEDS: ZALEPLON 5 MG CAPSULE PO PRN (20:06)
[2019-03-27] MEDS: HEPARIN 5,000 UNIT/1 ML VIAL SUBCUT SCH ×4 (00:01→23:23)
[2019-03-27] MEDS: SIMETHICONE CHEW 125 MG TABLET PO PRN ×4 (03:49→19:25)
[2019-03-27 04:45] LABS: Basophils % 0.7 % (0.0-0.8); Eosinophils # 0.2 10*3/uL (0.0-0.87); Eosinophils % 2.8 % (0.00-10.9); Hematocrit 33.8 VOL% (35.7-47.0); Hemoglobin 10.4 GM/DL (12.0-16.0); Immature Granulocytes % 1.4 %; Immature Granulocytes Absolute 0.08 #; Lymphocytes % 18.2 % (21.3-54.2); Mean Corpuscular HGB Conc 30.8 GM/DL (32-36); Mean Corpuscular Volume 91.8 FL (87-102); Mean Platelet Volume 10.3 FL (9.6-12.0); Monocytes % 8.1 % (1.7-12.7); Neutrophils % 68.8 % (38.7-73.9); Platelet Count 341 T/CUMM (130-400); Red Blood Count 3.68 MC/CUMM (3.8-5.5); Red Cell Distribution Width 16.8 % (9.3-17.3); White Blood Count 5.7 T/CUMM (4-12)
[2019-03-27 05:11] LABS: Calcium 8.8 MG/DL (8.5-10.1); Osmolality,Calculated 277.7 MOS/KG (273-304)
[2019-03-27] MEDS: LEVOTHYROXINE 150 MCG TABLET PO SCH (05:39)
[2019-03-27] MEDS: PANTOPRAZOLE 40 MG TABLET PO SCH (09:24)
[2019-03-27] MEDS: LEVOFLOXACIN 750 MG TABLET PO SCH (09:24)
[2019-03-27] MEDS: LINEZOLID 600 MG TABLET PO SCH ×2 (09:24→20:18)
[2019-03-27] MEDS: MULTIVITAMIN (BEROCCA) TABLET PO SCH (09:24)
[2019-03-27] MEDS: LISINOPRIL 20 MG TABLET PO SCH (09:24)
[2019-03-27] MEDS: ASCORBIC ACID 500 MG TABLET PO SCH ×2 (09:25→20:18)
[2019-03-27] MEDS: MORPHINE 4 MG/1 ML VIAL IV PRN ×2 (09:25→15:47)
[2019-03-27] MEDS: NICOTINE 14 MG/24 HR PATCH TRANSDERM SCH (09:26)
[2019-03-27] MEDS: DOCUSATE SODIUM 100 MG CAPSULE PO SCH ×2 (09:36→20:18)
[2019-03-27] MEDS: SODIUM HYPOCHLORITE 0.25% IRRIG 473 ML BOTTLE TOP SCH (10:34)
[2019-03-27] MEDS: DESITIN 4OZ/NYSTATIN 15 GRAM MIXTURE PASTE TOP SCH ×2 (10:34→22:14)
[2019-03-27] MEDS: ALLOPURINOL 300 MG TABLET PO SCH (17:49)
[2019-03-27] MEDS: ONDANSETRON 4 MG/2 ML VIAL IV PRN (19:26)
[2019-03-27] MEDS: ZALEPLON 5 MG CAPSULE PO PRN (21:23)
[2019-03-28] MEDS: SIMETHICONE CHEW 125 MG TABLET PO PRN ×3 (00:09→14:16)
[2019-03-28] MEDS: LEVOTHYROXINE 150 MCG TABLET PO SCH (05:30)
[2019-03-28] MEDS: PHENYLEPH/MINERAL OIL/PETROLAT 57 GM TUBE TOP PRN (05:31)
[2019-03-28] MEDS: DOCUSATE SODIUM 100 MG CAPSULE PO SCH ×2 (08:16→22:33)
[2019-03-28] MEDS: PANTOPRAZOLE 40 MG TABLET PO SCH (08:16)
[2019-03-28] MEDS: LEVOFLOXACIN 750 MG TABLET PO SCH (08:16)
[2019-03-28] MEDS: LINEZOLID 600 MG TABLET PO SCH ×2 (08:16→21:53)
[2019-03-28] MEDS: LISINOPRIL 20 MG TABLET PO SCH (08:17)
[2019-03-28] MEDS: ASCORBIC ACID 500 MG TABLET PO SCH ×2 (08:17→21:54)
[2019-03-28] MEDS: MULTIVITAMIN (BEROCCA) TABLET PO SCH (08:17)
[2019-03-28] MEDS: HEPARIN 5,000 UNIT/1 ML VIAL SUBCUT SCH ×2 (08:18→17:03)
[2019-03-28] MEDS: NICOTINE 14 MG/24 HR PATCH TRANSDERM SCH (08:18)
[2019-03-28] MEDS: DESITIN 4OZ/NYSTATIN 15 GRAM MIXTURE PASTE TOP SCH ×2 (10:30→22:33)
[2019-03-28] MEDS: ONDANSETRON 4 MG/2 ML VIAL IV PRN (11:18)
[2019-03-28] MEDS: MORPHINE 4 MG/1 ML VIAL IV PRN (14:16)
[2019-03-28] MEDS: SODIUM HYPOCHLORITE 0.25% IRRIG 473 ML BOTTLE TOP SCH (14:16)
[2019-03-28] MEDS: ALLOPURINOL 300 MG TABLET PO SCH (17:03)
[2019-03-28] MEDS: ZALEPLON 5 MG CAPSULE PO PRN (21:53)
[2019-03-29] MEDS: HEPARIN 5,000 UNIT/1 ML VIAL SUBCUT SCH ×4 (01:07→23:20)
[2019-03-29] MEDS: LEVOTHYROXINE 150 MCG TABLET PO SCH (06:53)
[2019-03-29] MEDS: ONDANSETRON 4 MG/2 ML VIAL IV PRN ×2 (07:47→13:04)
[2019-03-29] MEDS: NICOTINE 14 MG/24 HR PATCH TRANSDERM SCH (08:53)
[2019-03-29] MEDS: PANTOPRAZOLE 40 MG TABLET PO SCH (08:53)
[2019-03-29] MEDS: ASCORBIC ACID 500 MG TABLET PO SCH ×2 (08:53→20:42)
[2019-03-29] MEDS: LISINOPRIL 20 MG TABLET PO SCH (08:53)
[2019-03-29] MEDS: LEVOFLOXACIN 750 MG TABLET PO SCH (08:53)
[2019-03-29] MEDS: LINEZOLID 600 MG TABLET PO SCH ×2 (08:53→20:42)
[2019-03-29] MEDS: MULTIVITAMIN (BEROCCA) TABLET PO SCH (08:53)
[2019-03-29] MEDS: DOCUSATE SODIUM 100 MG CAPSULE PO SCH ×2 (08:58→20:49)
[2019-03-29] MEDS: SIMETHICONE CHEW 125 MG TABLET PO PRN ×2 (13:04→20:42)
[2019-03-29] MEDS: SODIUM HYPOCHLORITE 0.25% IRRIG 473 ML BOTTLE TOP SCH (16:47)
[2019-03-29] MEDS: DESITIN 4OZ/NYSTATIN 15 GRAM MIXTURE PASTE TOP SCH ×2 (16:47→20:49)
[2019-03-29] MEDS: MORPHINE 4 MG/1 ML VIAL IV PRN ×2 (16:50→20:44)
[2019-03-29] MEDS: ALLOPURINOL 300 MG TABLET PO SCH (17:16)
[2019-03-29] MEDS: ZALEPLON 5 MG CAPSULE PO PRN (22:09)
[2019-03-30] MEDS: LEVOTHYROXINE 150 MCG TABLET PO SCH (05:46)
[2019-03-30] MEDS: MORPHINE 4 MG/1 ML VIAL IV PRN ×2 (07:56→13:39)
[2019-03-30] MEDS: HEPARIN 5,000 UNIT/1 ML VIAL SUBCUT SCH ×2 (08:46→16:30)
[2019-03-30] MEDS: LEVOFLOXACIN 750 MG TABLET PO SCH (08:48)
[2019-03-30] MEDS: LINEZOLID 600 MG TABLET PO SCH ×2 (08:49→20:39)
[2019-03-30] MEDS: LISINOPRIL 20 MG TABLET PO SCH (08:49)
[2019-03-30] MEDS: MULTIVITAMIN (BEROCCA) TABLET PO SCH (08:50)
[2019-03-30] MEDS: PANTOPRAZOLE 40 MG TABLET PO SCH (08:50)
[2019-03-30] MEDS: ASCORBIC ACID 500 MG TABLET PO SCH ×2 (08:50→20:39)
[2019-03-30] MEDS: NICOTINE 14 MG/24 HR PATCH TRANSDERM SCH (08:51)
[2019-03-30] MEDS: DOCUSATE SODIUM 100 MG CAPSULE PO SCH ×2 (08:55→20:33)
[2019-03-30] MEDS: SODIUM HYPOCHLORITE 0.25% IRRIG 473 ML BOTTLE TOP SCH (10:30)
[2019-03-30] MEDS: DESITIN 4OZ/NYSTATIN 15 GRAM MIXTURE PASTE TOP SCH ×2 (10:50→20:50)
[2019-03-30] MEDS: ALLOPURINOL 300 MG TABLET PO SCH (17:34)
[2019-03-30] MEDS: SIMETHICONE CHEW 125 MG TABLET PO PRN (19:03)
[2019-03-30] MEDS: ZALEPLON 5 MG CAPSULE PO PRN (20:39)
[2019-03-31] MEDS: HEPARIN 5,000 UNIT/1 ML VIAL SUBCUT SCH ×3 (00:10→16:33)
[2019-03-31] MEDS: LEVOTHYROXINE 150 MCG TABLET PO SCH (05:41)
[2019-03-31 05:54] LABS: Eosinophils # 0.1 10*3/uL (0.0-0.87); Eosinophils % 3.2 % (0.00-10.9); Hematocrit 34.2 VOL% (35.7-47.0); Hemoglobin 10.4 GM/DL (12.0-16.0); Immature Granulocytes % 1.5 %; Immature Granulocytes Absolute 0.06 #; Lymphocytes # 0.9 10*3/uL (1.4-4.0); Lymphocytes % 23.1 % (21.3-54.2); Mean Corpuscular HGB Conc 30.4 GM/DL (32-36); Mean Corpuscular Volume 93.2 FL (87-102); Mean Platelet Volume 9.6 FL (9.6-12.0); Monocytes % 8.8 % (1.7-12.7); Neutrophils % 62.4 % (38.7-73.9); Platelet Count 330 T/CUMM (130-400); Red Blood Count 3.67 MC/CUMM (3.8-5.5); Red Cell Distribution Width 17.1 % (9.3-17.3); White Blood Count 4.1 T/CUMM (4-12)
[2019-03-31 06:09] LABS: Calcium 8.8 MG/DL (8.5-10.1)
[2019-03-31] MEDS: DOCUSATE SODIUM 100 MG CAPSULE PO SCH ×2 (09:41→20:40)
[2019-03-31] MEDS: MULTIVITAMIN (BEROCCA) TABLET PO SCH (09:41)
[2019-03-31] MEDS: NICOTINE 14 MG/24 HR PATCH TRANSDERM SCH (09:42)
[2019-03-31] MEDS: PANTOPRAZOLE 40 MG TABLET PO SCH (09:43)
[2019-03-31] MEDS: LISINOPRIL 20 MG TABLET PO SCH (09:43)
[2019-03-31] MEDS: ASCORBIC ACID 500 MG TABLET PO SCH ×2 (09:43→20:40)
[2019-03-31] MEDS: DESITIN 4OZ/NYSTATIN 15 GRAM MIXTURE PASTE TOP SCH ×2 (09:50→20:40)
[2019-03-31] MEDS: SODIUM HYPOCHLORITE 0.25% IRRIG 473 ML BOTTLE TOP SCH (11:50)
[2019-03-31] MEDS: SIMETHICONE CHEW 125 MG TABLET PO PRN ×2 (15:02→19:18)
[2019-03-31] MEDS: ALLOPURINOL 300 MG TABLET PO SCH (18:18)
[2019-03-31] MEDS: LINEZOLID 600 MG TABLET PO SCH (20:39)
[2019-03-31] MEDS: ZALEPLON 5 MG CAPSULE PO PRN (21:37)
[2019-03-31] MEDS: ACETAMINOPHEN 325 MG TABLET PO PRN (21:42)
[2019-04-01] MEDS: HEPARIN 5,000 UNIT/1 ML VIAL SUBCUT SCH ×4 (01:04→23:48)
[2019-04-01] MEDS: LEVOTHYROXINE 150 MCG TABLET PO SCH (06:00)
[2019-04-01] MEDS: LISINOPRIL 20 MG TABLET PO SCH (08:45)
[2019-04-01] MEDS: SIMETHICONE CHEW 125 MG TABLET PO PRN ×3 (08:45→21:13)
[2019-04-01] MEDS: ASCORBIC ACID 500 MG TABLET PO SCH ×2 (08:45→21:13)
[2019-04-01] MEDS: MULTIVITAMIN (BEROCCA) TABLET PO SCH (08:48)
[2019-04-01] MEDS: LINEZOLID 600 MG TABLET PO SCH ×2 (08:48→21:13)
[2019-04-01] MEDS: PANTOPRAZOLE 40 MG TABLET PO SCH (08:49)
[2019-04-01] MEDS: NICOTINE 14 MG/24 HR PATCH TRANSDERM SCH (08:50)
[2019-04-01] MEDS: DOCUSATE SODIUM 100 MG CAPSULE PO SCH ×2 (08:50→21:14)
[2019-04-01] MEDS: DESITIN 4OZ/NYSTATIN 15 GRAM MIXTURE PASTE TOP SCH ×2 (10:34→21:14)
[2019-04-01] MEDS: ONDANSETRON 4 MG/2 ML VIAL IV PRN (12:58)
[2019-04-01] MEDS: MORPHINE 4 MG/1 ML VIAL IV PRN (15:38)
[2019-04-01] MEDS: ALLOPURINOL 300 MG TABLET PO SCH (17:56)
[2019-04-01] MEDS: SODIUM HYPOCHLORITE 0.25% IRRIG 473 ML BOTTLE TOP SCH (17:59)
[2019-04-01] MEDS: ZALEPLON 5 MG CAPSULE PO PRN (21:14)
[2019-04-01] MEDS: ACETAMINOPHEN 325 MG TABLET PO PRN (23:45)
[2019-04-02] MEDS: LEVOTHYROXINE 150 MCG TABLET PO SCH (05:55)
[2019-04-02] MEDS: LISINOPRIL 20 MG TABLET PO SCH (08:18)
[2019-04-02] MEDS: LINEZOLID 600 MG TABLET PO SCH ×2 (08:18→21:56)
[2019-04-02] MEDS: MULTIVITAMIN (BEROCCA) TABLET PO SCH (08:18)
[2019-04-02] MEDS: ASCORBIC ACID 500 MG TABLET PO SCH ×2 (08:19→21:56)
[2019-04-02] MEDS: PANTOPRAZOLE 40 MG TABLET PO SCH (08:19)
[2019-04-02] MEDS: HEPARIN 5,000 UNIT/1 ML VIAL SUBCUT SCH ×3 (08:19→23:45)
[2019-04-02] MEDS: SODIUM HYPOCHLORITE 0.25% IRRIG 473 ML BOTTLE TOP SCH (08:21)
[2019-04-02] MEDS: NICOTINE 14 MG/24 HR PATCH TRANSDERM SCH ×2 (08:21→08:38)
[2019-04-02] MEDS: DESITIN 4OZ/NYSTATIN 15 GRAM MIXTURE PASTE TOP SCH ×2 (08:21→22:04)
[2019-04-02] MEDS: DOCUSATE SODIUM 100 MG CAPSULE PO SCH ×2 (08:22→22:04)
[2019-04-02] MEDS: SIMETHICONE CHEW 125 MG TABLET PO PRN ×3 (08:46→21:56)
[2019-04-02] MEDS: MORPHINE 4 MG/1 ML VIAL IV PRN (12:59)
[2019-04-02] MEDS: ALLOPURINOL 300 MG TABLET PO SCH (17:48)
[2019-04-02] MEDS: ONDANSETRON 4 MG/2 ML VIAL IV PRN (21:57)
[2019-04-02] MEDS: ZALEPLON 5 MG CAPSULE PO PRN (23:20)
[2019-04-03] MEDS: LEVOTHYROXINE 150 MCG TABLET PO SCH (05:47)
[2019-04-03] MEDS: HEPARIN 5,000 UNIT/1 ML VIAL SUBCUT SCH ×2 (07:57→15:51)
[2019-04-03] MEDS: DESITIN 4OZ/NYSTATIN 15 GRAM MIXTURE PASTE TOP SCH ×2 (09:00→20:59)
[2019-04-03] MEDS: ONDANSETRON 4 MG/2 ML VIAL IV PRN (09:02)
[2019-04-03] MEDS: SIMETHICONE CHEW 125 MG TABLET PO PRN ×2 (09:03→17:40)
[2019-04-03] MEDS: PANTOPRAZOLE 40 MG TABLET PO SCH (09:07)
[2019-04-03] MEDS: NICOTINE 14 MG/24 HR PATCH TRANSDERM SCH (09:07)
[2019-04-03] MEDS: MULTIVITAMIN (BEROCCA) TABLET PO SCH (09:07)
[2019-04-03] MEDS: LISINOPRIL 20 MG TABLET PO SCH (09:07)
[2019-04-03] MEDS: DOCUSATE SODIUM 100 MG CAPSULE PO SCH ×2 (09:07→20:59)
[2019-04-03] MEDS: ASCORBIC ACID 500 MG TABLET PO SCH ×2 (09:07→20:59)
[2019-04-03] MEDS: LINEZOLID 600 MG TABLET PO SCH (09:08)
[2019-04-03] MEDS: SODIUM HYPOCHLORITE 0.25% IRRIG 473 ML BOTTLE TOP SCH (13:15)
[2019-04-03] MEDS: ALLOPURINOL 300 MG TABLET PO SCH (17:38)
[2019-04-03] MEDS: ZALEPLON 5 MG CAPSULE PO PRN (22:19)
[2019-04-04] MEDS: HEPARIN 5,000 UNIT/1 ML VIAL SUBCUT SCH ×3 (01:16→16:04)
[2019-04-04] MEDS: LEVOTHYROXINE 150 MCG TABLET PO SCH (06:06)
[2019-04-04] MEDS: MULTIVITAMIN (BEROCCA) TABLET PO SCH (09:32)
[2019-04-04] MEDS: DOCUSATE SODIUM 100 MG CAPSULE PO SCH ×2 (09:32→21:12)
[2019-04-04] MEDS: NICOTINE 14 MG/24 HR PATCH TRANSDERM SCH (09:32)
[2019-04-04] MEDS: LISINOPRIL 20 MG TABLET PO SCH (09:33)
[2019-04-04] MEDS: PANTOPRAZOLE 40 MG TABLET PO SCH (09:33)
[2019-04-04] MEDS: ASCORBIC ACID 500 MG TABLET PO SCH ×2 (09:33→21:12)
[2019-04-04] MEDS: SIMETHICONE CHEW 125 MG TABLET PO PRN ×3 (09:33→22:43)
[2019-04-04] MEDS: ONDANSETRON 4 MG/2 ML VIAL IV PRN ×2 (09:34→16:03)
[2019-04-04] MEDS: DESITIN 4OZ/NYSTATIN 15 GRAM MIXTURE PASTE TOP SCH ×2 (10:20→21:12)
[2019-04-04] MEDS: SODIUM HYPOCHLORITE 0.25% IRRIG 473 ML BOTTLE TOP SCH (11:45)
[2019-04-04] MEDS: ALLOPURINOL 300 MG TABLET PO SCH (17:46)
[2019-04-04] MEDS: ZALEPLON 5 MG CAPSULE PO PRN (21:16)
[2019-04-05] MEDS: HEPARIN 5,000 UNIT/1 ML VIAL SUBCUT SCH ×3 (01:44→15:30)
[2019-04-05] MEDS: LEVOTHYROXINE 150 MCG TABLET PO SCH (05:55)
[2019-04-05] MEDS: DOCUSATE SODIUM 100 MG CAPSULE PO SCH ×2 (08:16→21:06)
[2019-04-05] MEDS: LISINOPRIL 20 MG TABLET PO SCH (08:17)
[2019-04-05] MEDS: ASCORBIC ACID 500 MG TABLET PO SCH ×2 (08:18→21:06)
[2019-04-05] MEDS: SODIUM HYPOCHLORITE 0.25% IRRIG 473 ML BOTTLE TOP SCH (08:18)
[2019-04-05] MEDS: MULTIVITAMIN (BEROCCA) TABLET PO SCH (08:18)
[2019-04-05] MEDS: PANTOPRAZOLE 40 MG TABLET PO SCH (08:18)
[2019-04-05] MEDS: NICOTINE 14 MG/24 HR PATCH TRANSDERM SCH (08:19)
[2019-04-05] MEDS: DESITIN 4OZ/NYSTATIN 15 GRAM MIXTURE PASTE TOP SCH ×2 (08:20→21:06)
[2019-04-05] MEDS: SIMETHICONE CHEW 125 MG TABLET PO PRN ×2 (08:27→17:59)
[2019-04-05] MEDS: ALLOPURINOL 300 MG TABLET PO SCH (17:12)
[2019-04-05] MEDS: ZALEPLON 5 MG CAPSULE PO PRN (21:06)
[2019-04-06] MEDS: HEPARIN 5,000 UNIT/1 ML VIAL SUBCUT SCH ×3 (01:10→15:53)
[2019-04-06] MEDS: LEVOTHYROXINE 150 MCG TABLET PO SCH (05:58)
[2019-04-06] MEDS: LISINOPRIL 20 MG TABLET PO SCH (08:16)
[2019-04-06] MEDS: ASCORBIC ACID 500 MG TABLET PO SCH ×2 (08:16→20:25)
[2019-04-06] MEDS: PANTOPRAZOLE 40 MG TABLET PO SCH (08:16)
[2019-04-06] MEDS: NICOTINE 14 MG/24 HR PATCH TRANSDERM SCH (08:17)
[2019-04-06] MEDS: MULTIVITAMIN (BEROCCA) TABLET PO SCH (08:17)
[2019-04-06] MEDS: DOCUSATE SODIUM 100 MG CAPSULE PO SCH ×2 (08:17→21:40)
[2019-04-06] MEDS: DESITIN 4OZ/NYSTATIN 15 GRAM MIXTURE PASTE TOP SCH ×2 (10:19→21:40)
[2019-04-06] MEDS: SODIUM HYPOCHLORITE 0.25% IRRIG 473 ML BOTTLE TOP SCH (10:19)
[2019-04-06] MEDS: SIMETHICONE CHEW 125 MG TABLET PO PRN ×2 (10:19→18:35)
[2019-04-06] MEDS: ONDANSETRON 4 MG/2 ML VIAL IV PRN (11:18)
[2019-04-06] MEDS: ALLOPURINOL 300 MG TABLET PO SCH (17:23)
[2019-04-06] MEDS: ZALEPLON 5 MG CAPSULE PO PRN (22:52)
[2019-04-07] MEDS: HEPARIN 5,000 UNIT/1 ML VIAL SUBCUT SCH ×4 (00:19→23:33)
[2019-04-07] MEDS: LEVOTHYROXINE 150 MCG TABLET PO SCH (05:30)
[2019-04-07 06:14] LABS: Basophils # 0.1 10*3/uL (0.0-0.2); Basophils % 1.2 % (0.0-0.8); Eosinophils # 0.1 10*3/uL (0.0-0.87); Eosinophils % 2.4 % (0.00-10.9); Hematocrit 36.8 VOL% (35.7-47.0); Hemoglobin 11.1 GM/DL (12.0-16.0); Immature Granulocytes % 4.5 %; Immature Granulocytes Absolute 0.23 #; Lymphocytes # 1.3 10*3/uL (1.4-4.0); Lymphocytes % 25.3 % (21.3-54.2); Mean Corpuscular HGB Conc 30.2 GM/DL (32-36); Mean Corpuscular Volume 94.1 FL (87-102); Mean Platelet Volume 9.8 FL (9.6-12.0); Monocytes % 14.5 % (1.7-12.7); Neutrophils % 52.1 % (38.7-73.9); Platelet Count 348 T/CUMM (130-400); Red Blood Count 3.91 MC/CUMM (3.8-5.5); Red Cell Distribution Width 19.9 % (9.3-17.3); White Blood Count 5.1 T/CUMM (4-12)
[2019-04-07 06:31] LABS: Calcium 9.3 MG/DL (8.5-10.1); Osmolality,Calculated 279.5 MOS/KG (273-304)
[2019-04-07] MEDS: MULTIVITAMIN (BEROCCA) TABLET PO SCH (08:55)
[2019-04-07] MEDS: ASCORBIC ACID 500 MG TABLET PO SCH ×2 (08:55→20:40)
[2019-04-07] MEDS: PANTOPRAZOLE 40 MG TABLET PO SCH (08:56)
[2019-04-07] MEDS: NICOTINE 14 MG/24 HR PATCH TRANSDERM SCH (08:56)
[2019-04-07] MEDS: DOCUSATE SODIUM 100 MG CAPSULE PO SCH ×2 (10:07→20:40)
[2019-04-07] MEDS: LISINOPRIL 20 MG TABLET PO SCH (10:07)
[2019-04-07] MEDS: SIMETHICONE CHEW 125 MG TABLET PO PRN ×2 (11:10→20:40)
[2019-04-07] MEDS: DESITIN 4OZ/NYSTATIN 15 GRAM MIXTURE PASTE TOP SCH ×2 (14:39→20:41)
[2019-04-07] MEDS: SODIUM HYPOCHLORITE 0.25% IRRIG 473 ML BOTTLE TOP SCH (17:02)
[2019-04-07] MEDS: ALLOPURINOL 300 MG TABLET PO SCH (17:11)
[2019-04-07] MEDS: ZALEPLON 5 MG CAPSULE PO PRN (22:07)
[2019-04-08] MEDS: LEVOTHYROXINE 150 MCG TABLET PO SCH (06:45)
[2019-04-08] MEDS: LISINOPRIL 20 MG TABLET PO SCH (08:15)
[2019-04-08] MEDS: ASCORBIC ACID 500 MG TABLET PO SCH ×2 (08:15→20:31)
[2019-04-08] MEDS: MULTIVITAMIN (BEROCCA) TABLET PO SCH (08:15)
[2019-04-08] MEDS: PANTOPRAZOLE 40 MG TABLET PO SCH (08:15)
[2019-04-08] MEDS: NICOTINE 14 MG/24 HR PATCH TRANSDERM SCH (08:15)
[2019-04-08] MEDS: HEPARIN 5,000 UNIT/1 ML VIAL SUBCUT SCH ×2 (08:15→15:27)
[2019-04-08] MEDS: SODIUM HYPOCHLORITE 0.25% IRRIG 473 ML BOTTLE TOP SCH (08:16)
[2019-04-08] MEDS: DOCUSATE SODIUM 100 MG CAPSULE PO SCH ×2 (08:16→21:00)
[2019-04-08] MEDS: DESITIN 4OZ/NYSTATIN 15 GRAM MIXTURE PASTE TOP SCH ×2 (08:16→20:35)
[2019-04-08] MEDS: SIMETHICONE CHEW 125 MG TABLET PO PRN ×2 (14:25→20:32)
[2019-04-08] MEDS: ALLOPURINOL 300 MG TABLET PO SCH (17:34)
[2019-04-08] MEDS: ONDANSETRON 4 MG/2 ML VIAL IV PRN (20:31)
[2019-04-08] MEDS: ZALEPLON 5 MG CAPSULE PO PRN (20:32)
[2019-04-08 23:52] LABS: Apearance,Urine Slightly Hazy (Clear); Bacteria,Urine Occasional /HPF (Few); Bilirubin,Urine Negative (Negative); Blood, Urine Negative (Negative); Glucose,Urine (UA) Negative (Negative); Ketones,Urine Negative (Negative); Mucus,Urine Occasional /LPF (Occasional); Nitrite,Urine Negative (Negative); Protein,Urine Negative; RBC,Urine 3 /HPF (0-4); Squamous Epithelial Cell,Urine Few /HPF (0-10); Urine Color Yellow (Yellow); Urine Specific Gravity 1.018 (1.001-1.035); Urine Urobilinogen < 2.0 EU/DL (0.2-1.0); WBC,Urine 1 /HPF (0-6)
[2019-04-09] MEDS: HEPARIN 5,000 UNIT/1 ML VIAL SUBCUT SCH ×3 (00:53→16:12)
[2019-04-09] MEDS: LEVOTHYROXINE 150 MCG TABLET PO SCH (07:21)
[2019-04-09] MEDS: NICOTINE 14 MG/24 HR PATCH TRANSDERM SCH (08:21)
[2019-04-09] MEDS: ASCORBIC ACID 500 MG TABLET PO SCH ×2 (08:22→20:00)
[2019-04-09] MEDS: DOCUSATE SODIUM 100 MG CAPSULE PO SCH ×2 (08:22→20:00)
[2019-04-09] MEDS: MULTIVITAMIN (BEROCCA) TABLET PO SCH (08:23)
[2019-04-09] MEDS: PANTOPRAZOLE 40 MG TABLET PO SCH (08:23)
[2019-04-09] MEDS: LISINOPRIL 20 MG TABLET PO SCH (08:23)
[2019-04-09] MEDS: SIMETHICONE CHEW 125 MG TABLET PO PRN ×2 (08:29→19:51)
[2019-04-09] MEDS: ONDANSETRON 4 MG/2 ML VIAL IV PRN (15:58)
[2019-04-09] MEDS: DESITIN 4OZ/NYSTATIN 15 GRAM MIXTURE PASTE TOP SCH ×2 (17:30→20:00)
[2019-04-09] MEDS: SODIUM HYPOCHLORITE 0.25% IRRIG 473 ML BOTTLE TOP SCH (17:45)
[2019-04-09] MEDS: ALLOPURINOL 300 MG TABLET PO SCH (18:15)
[2019-04-09] MEDS: PHENAZOPYRIDINE 95 MG TABLET PO SCH (18:15)
[2019-04-09] MEDS: ZALEPLON 5 MG CAPSULE PO PRN (21:38)
[2019-04-10] MEDS: HEPARIN 5,000 UNIT/1 ML VIAL SUBCUT SCH ×3 (00:05→17:19)
[2019-04-10] MEDS: LEVOTHYROXINE 150 MCG TABLET PO SCH (06:15)
[2019-04-10] MEDS: NICOTINE 14 MG/24 HR PATCH TRANSDERM SCH (08:03)
[2019-04-10] MEDS: ASCORBIC ACID 500 MG TABLET PO SCH ×2 (08:04→20:51)
[2019-04-10] MEDS: SODIUM HYPOCHLORITE 0.25% IRRIG 473 ML BOTTLE TOP SCH (08:04)
[2019-04-10] MEDS: PANTOPRAZOLE 40 MG TABLET PO SCH (08:04)
[2019-04-10] MEDS: DESITIN 4OZ/NYSTATIN 15 GRAM MIXTURE PASTE TOP SCH ×2 (08:04→20:59)
[2019-04-10] MEDS: MULTIVITAMIN (BEROCCA) TABLET PO SCH (08:04)
[2019-04-10] MEDS: PHENAZOPYRIDINE 95 MG TABLET PO SCH ×2 (08:04→17:19)
[2019-04-10] MEDS: DOCUSATE SODIUM 100 MG CAPSULE PO SCH ×2 (08:04→20:58)
[2019-04-10] MEDS: LISINOPRIL 20 MG TABLET PO SCH (08:05)
[2019-04-10] MEDS: SIMETHICONE CHEW 125 MG TABLET PO PRN (16:04)
[2019-04-10] MEDS: ALLOPURINOL 300 MG TABLET PO SCH (17:19)
[2019-04-10] MEDS: ZALEPLON 5 MG CAPSULE PO PRN (20:51)
[2019-04-11] MEDS: HEPARIN 5,000 UNIT/1 ML VIAL SUBCUT SCH ×4 (00:37→23:58)
[2019-04-11] MEDS: SIMETHICONE CHEW 125 MG TABLET PO PRN ×4 (03:19→21:01)
[2019-04-11] MEDS: LEVOTHYROXINE 150 MCG TABLET PO SCH (06:13)
[2019-04-11] MEDS: ONDANSETRON 4 MG/2 ML VIAL IV PRN ×2 (09:01→18:55)
[2019-04-11] MEDS: NICOTINE 14 MG/24 HR PATCH TRANSDERM SCH (09:03)
[2019-04-11] MEDS: PANTOPRAZOLE 40 MG TABLET PO SCH (09:03)
[2019-04-11] MEDS: LISINOPRIL 20 MG TABLET PO SCH (09:03)
[2019-04-11] MEDS: MULTIVITAMIN (BEROCCA) TABLET PO SCH (09:03)
[2019-04-11] MEDS: ASCORBIC ACID 500 MG TABLET PO SCH ×2 (09:03→21:00)
[2019-04-11] MEDS: SODIUM HYPOCHLORITE 0.25% IRRIG 473 ML BOTTLE TOP SCH (12:47)
[2019-04-11] MEDS: DESITIN 4OZ/NYSTATIN 15 GRAM MIXTURE PASTE TOP SCH ×2 (12:47→21:01)
[2019-04-11] MEDS: DOCUSATE SODIUM 100 MG CAPSULE PO SCH ×2 (12:47→21:00)
[2019-04-11] MEDS: PHENAZOPYRIDINE 95 MG TABLET PO SCH ×2 (12:47→17:43)
[2019-04-11] MEDS: ALLOPURINOL 300 MG TABLET PO SCH (17:44)
[2019-04-11] MEDS: ZALEPLON 5 MG CAPSULE PO PRN (23:57)
[2019-04-12] MEDS: LEVOTHYROXINE 150 MCG TABLET PO SCH (06:44)
[2019-04-12] MEDS: NICOTINE 14 MG/24 HR PATCH TRANSDERM SCH (09:19)
[2019-04-12] MEDS: LISINOPRIL 20 MG TABLET PO SCH (09:19)
[2019-04-12] MEDS: PHENAZOPYRIDINE 95 MG TABLET PO SCH ×2 (09:19→17:26)
[2019-04-12] MEDS: MULTIVITAMIN (BEROCCA) TABLET PO SCH (09:19)
[2019-04-12] MEDS: DOCUSATE SODIUM 100 MG CAPSULE PO SCH ×2 (09:19→20:04)
[2019-04-12] MEDS: HEPARIN 5,000 UNIT/1 ML VIAL SUBCUT SCH ×3 (09:19→23:21)
[2019-04-12] MEDS: SODIUM HYPOCHLORITE 0.25% IRRIG 473 ML BOTTLE TOP SCH (09:19)
[2019-04-12] MEDS: ASCORBIC ACID 500 MG TABLET PO SCH ×2 (09:19→20:04)
[2019-04-12] MEDS: PANTOPRAZOLE 40 MG TABLET PO SCH (09:19)
[2019-04-12] MEDS: DESITIN 4OZ/NYSTATIN 15 GRAM MIXTURE PASTE TOP SCH ×2 (09:19→20:04)
[2019-04-12] MEDS: SIMETHICONE CHEW 125 MG TABLET PO PRN ×2 (10:04→20:05)
[2019-04-12] MEDS: ONDANSETRON 4 MG/2 ML VIAL IV PRN (13:59)
[2019-04-12] MEDS: ALLOPURINOL 300 MG TABLET PO SCH (17:26)
[2019-04-12] MEDS: ZALEPLON 5 MG CAPSULE PO PRN (21:11)
[2019-04-13] MEDS: LEVOTHYROXINE 150 MCG TABLET PO SCH (06:09)
[2019-04-13] MEDS: DOCUSATE SODIUM 100 MG CAPSULE PO SCH ×2 (10:24→20:51)
[2019-04-13] MEDS: HEPARIN 5,000 UNIT/1 ML VIAL SUBCUT SCH ×2 (10:24→18:25)
[2019-04-13] MEDS: PHENAZOPYRIDINE 95 MG TABLET PO SCH ×2 (10:24→18:26)
[2019-04-13] MEDS: MULTIVITAMIN (BEROCCA) TABLET PO SCH (10:25)
[2019-04-13] MEDS: LISINOPRIL 20 MG TABLET PO SCH (10:25)
[2019-04-13] MEDS: DESITIN 4OZ/NYSTATIN 15 GRAM MIXTURE PASTE TOP SCH ×2 (10:25→20:54)
[2019-04-13] MEDS: ASCORBIC ACID 500 MG TABLET PO SCH ×2 (10:25→20:51)
[2019-04-13] MEDS: PANTOPRAZOLE 40 MG TABLET PO SCH (10:25)
[2019-04-13] MEDS: NICOTINE 14 MG/24 HR PATCH TRANSDERM SCH (10:25)
[2019-04-13] MEDS: SODIUM HYPOCHLORITE 0.25% IRRIG 473 ML BOTTLE TOP SCH (10:26)
[2019-04-13] MEDS: ONDANSETRON 4 MG/2 ML VIAL IV PRN (12:54)
[2019-04-13] MEDS: ALLOPURINOL 300 MG TABLET PO SCH (18:27)
[2019-04-13] MEDS: PHENYLEPH/MINERAL OIL/PETROLAT 57 GM TUBE TOP PRN (20:54)
[2019-04-13] MEDS: ZALEPLON 5 MG CAPSULE PO PRN (20:59)
[2019-04-14] MEDS: HEPARIN 5,000 UNIT/1 ML VIAL SUBCUT SCH ×2 (00:05→08:26)
[2019-04-14] MEDS: LEVOTHYROXINE 150 MCG TABLET PO SCH (06:06)
[2019-04-14 06:10] LABS: Basophils # 0.1 10*3/uL (0.0-0.2); Basophils % 1.3 % (0.0-0.8); Eosinophils # 0.1 10*3/uL (0.0-0.87); Eosinophils % 2.6 % (0.00-10.9); Hematocrit 39.1 VOL% (35.7-47.0); Hemoglobin 11.9 GM/DL (12.0-16.0); Immature Granulocytes % 1.1 %; Immature Granulocytes Absolute 0.05 #; Lymphocytes # 1.3 10*3/uL (1.4-4.0); Lymphocytes % 28.5 % (21.3-54.2); Mean Corpuscular HGB Conc 30.4 GM/DL (32-36); Mean Corpuscular Volume 94.2 FL (87-102); Mean Platelet Volume 10.5 FL (9.6-12.0); Monocytes % 10.3 % (1.7-12.7); Neutrophils % 56.2 % (38.7-73.9); Platelet Count 277 T/CUMM (130-400); Red Blood Count 4.15 MC/CUMM (3.8-5.5); Red Cell Distribution Width 19.7 % (9.3-17.3); White Blood Count 4.6 T/CUMM (4-12)
[2019-04-14 06:43] LABS: Calcium 9.4 MG/DL (8.5-10.1)
[2019-04-14] MEDS: PHENAZOPYRIDINE 95 MG TABLET PO SCH ×2 (08:25→18:15)
[2019-04-14] MEDS: MULTIVITAMIN (BEROCCA) TABLET PO SCH (08:25)
[2019-04-14] MEDS: NICOTINE 14 MG/24 HR PATCH TRANSDERM SCH (08:25)
[2019-04-14] MEDS: ASCORBIC ACID 500 MG TABLET PO SCH ×2 (08:25→20:14)
[2019-04-14] MEDS: DOCUSATE SODIUM 100 MG CAPSULE PO SCH ×3 (08:25→21:50)
[2019-04-14] MEDS: LISINOPRIL 20 MG TABLET PO SCH (08:25)
[2019-04-14] MEDS: PANTOPRAZOLE 40 MG TABLET PO SCH ×2 (08:25→20:14)
[2019-04-14] MEDS: DESITIN 4OZ/NYSTATIN 15 GRAM MIXTURE PASTE TOP SCH ×2 (08:27→20:14)
[2019-04-14] MEDS: CHOLECALCIFEROL 1,000 UNIT TABLET PO SCH (13:12)
[2019-04-14] MEDS: ZINC GLUCONATE 50 MG TABLET PO SCH (13:12)
[2019-04-14] MEDS: ALLOPURINOL 300 MG TABLET PO SCH (18:16)
[2019-04-14] MEDS: SODIUM HYPOCHLORITE 0.25% IRRIG 473 ML BOTTLE TOP SCH (18:40)
[2019-04-14] MEDS: ENOXAPARIN 40 MG/0.4 ML SYRINGE SUBCUT SCH (20:14)
[2019-04-14] MEDS: ZALEPLON 5 MG CAPSULE PO PRN (20:14)
[2019-04-15] MEDS: LEVOTHYROXINE 150 MCG TABLET PO SCH (05:38)
[2019-04-15] MEDS: CHOLECALCIFEROL 1,000 UNIT TABLET PO SCH (09:33)
[2019-04-15] MEDS: NICOTINE 14 MG/24 HR PATCH TRANSDERM SCH (09:33)
[2019-04-15] MEDS: ZINC GLUCONATE 50 MG TABLET PO SCH (09:33)
[2019-04-15] MEDS: PHENAZOPYRIDINE 95 MG TABLET PO SCH ×2 (09:33→16:22)
[2019-04-15] MEDS: ASCORBIC ACID 500 MG TABLET PO SCH ×2 (09:34→20:43)
[2019-04-15] MEDS: MULTIVITAMIN (BEROCCA) TABLET PO SCH (09:34)
[2019-04-15] MEDS: DOCUSATE SODIUM 100 MG CAPSULE PO SCH ×4 (09:34→20:44)
[2019-04-15] MEDS: DESITIN 4OZ/NYSTATIN 15 GRAM MIXTURE PASTE TOP SCH ×2 (09:34→20:44)
[2019-04-15] MEDS: LISINOPRIL 20 MG TABLET PO SCH (09:34)
[2019-04-15] MEDS: SODIUM HYPOCHLORITE 0.25% IRRIG 473 ML BOTTLE TOP SCH (09:34)
[2019-04-15] MEDS: PANTOPRAZOLE 40 MG TABLET PO SCH ×2 (09:34→20:43)
[2019-04-15] MEDS: ONDANSETRON 4 MG/2 ML VIAL IV PRN (10:26)
[2019-04-15] MEDS: ALLOPURINOL 300 MG TABLET PO SCH (17:32)
[2019-04-15] MEDS: ENOXAPARIN 40 MG/0.4 ML SYRINGE SUBCUT SCH (20:44)
[2019-04-15] MEDS: NORTRIPTYLINE 25 MG CAPSULE PO SCH (20:44)
[2019-04-15] MEDS: diphenhydrAMINE CAP 25 MG CAPSULE PO PRN (21:50)
[2019-04-16] MEDS: LEVOTHYROXINE 150 MCG TABLET PO SCH (06:36)
[2019-04-16] MEDS: CHOLECALCIFEROL 1,000 UNIT TABLET PO SCH (09:22)
[2019-04-16] MEDS: ZINC GLUCONATE 50 MG TABLET PO SCH (09:22)
[2019-04-16] MEDS: PHENAZOPYRIDINE 95 MG TABLET PO SCH ×2 (09:22→17:27)
[2019-04-16] MEDS: PANTOPRAZOLE 40 MG TABLET PO SCH ×2 (09:23→20:08)
[2019-04-16] MEDS: MULTIVITAMIN (BEROCCA) TABLET PO SCH (09:23)
[2019-04-16] MEDS: ASCORBIC ACID 500 MG TABLET PO SCH ×2 (09:23→20:08)
[2019-04-16] MEDS: DOCUSATE SODIUM 100 MG CAPSULE PO SCH ×4 (09:23→20:14)
[2019-04-16] MEDS: NICOTINE 14 MG/24 HR PATCH TRANSDERM SCH (09:23)
[2019-04-16] MEDS: LISINOPRIL 20 MG TABLET PO SCH (09:23)
[2019-04-16] MEDS: DESITIN 4OZ/NYSTATIN 15 GRAM MIXTURE PASTE TOP SCH ×2 (09:24→20:16)
[2019-04-16] MEDS: SODIUM HYPOCHLORITE 0.25% IRRIG 473 ML BOTTLE TOP SCH (09:24)
[2019-04-16] MEDS: ALLOPURINOL 300 MG TABLET PO SCH (17:27)
[2019-04-16] MEDS: ENOXAPARIN 40 MG/0.4 ML SYRINGE SUBCUT SCH (20:07)
[2019-04-16] MEDS: NORTRIPTYLINE 25 MG CAPSULE PO SCH (20:14)
[2019-04-16] MEDS: diphenhydrAMINE CAP 25 MG CAPSULE PO PRN (21:47)
[2019-04-17] MEDS: LEVOTHYROXINE 150 MCG TABLET PO SCH (05:55)
[2019-04-17] MEDS: PHENAZOPYRIDINE 95 MG TABLET PO SCH ×2 (08:44→16:35)
[2019-04-17] MEDS: NICOTINE 14 MG/24 HR PATCH TRANSDERM SCH (08:44)
[2019-04-17] MEDS: MULTIVITAMIN (BEROCCA) TABLET PO SCH (08:45)
[2019-04-17] MEDS: PANTOPRAZOLE 40 MG TABLET PO SCH (08:46)
[2019-04-17] MEDS: CHOLECALCIFEROL 1,000 UNIT TABLET PO SCH (08:46)
[2019-04-17] MEDS: ZINC GLUCONATE 50 MG TABLET PO SCH (08:46)
[2019-04-17] MEDS: LISINOPRIL 20 MG TABLET PO SCH (08:46)
[2019-04-17] MEDS: DOCUSATE SODIUM 100 MG CAPSULE PO SCH ×2 (08:50)
[2019-04-17 11:32] VITALS: BP 135/75
[2019-04-17] MEDS: SODIUM HYPOCHLORITE 0.25% IRRIG 473 ML BOTTLE TOP SCH (12:45)
[2019-04-17] MEDS: DESITIN 4OZ/NYSTATIN 15 GRAM MIXTURE PASTE TOP SCH (12:45)
[2019-04-17] MEDS: ASCORBIC ACID 500 MG TABLET PO SCH (14:32)
== END 2019-04-17 16:20 | disposition home health service (06) | DRG 264 ==
LOC: N.ED 13:28 → SUATTDRO 17:21 → N.EDINP 17:21 → N.3E 19:20
PROVIDERS: ADMIT Internal Medicine Nephrology; ATTEND Hospitalist

== ENCOUNTER 2019-05-18 23:17 | Observation (INO) ==
[2019-05-19] MEDS ORDERED: VANCOMYCIN INJ 1,000 MG in SODIUM CHLORIDE 0.9% 250 ML IV STA (00:13)
[2019-05-19 00:44] LABS: Basophils # 0.1 10*3/uL (0.0-0.2); Basophils % 0.7 % (0.0-0.8); Eosinophils # 0.1 10*3/uL (0.0-0.87); Eosinophils % 0.9 % (0.00-10.9); Hematocrit 36.5 VOL% (35.7-47.0); Hemoglobin 11.6 GM/DL (12.0-16.0); Immature Granulocytes % 0.7 %; Immature Granulocytes Absolute 0.06 #; Lymphocytes # 0.8 10*3/uL (1.4-4.0); Lymphocytes % 8.8 % (21.3-54.2); Mean Corpuscular HGB Conc 31.8 GM/DL (32-36); Mean Corpuscular Volume 92.9 FL (87-102); Mean Platelet Volume 9.9 FL (9.6-12.0); Monocytes % 7.1 % (1.7-12.7); Neutrophils % 81.8 % (38.7-73.9); Platelet Count 393 T/CUMM (130-400); Red Blood Count 3.93 MC/CUMM (3.8-5.5); Red Cell Distribution Width 18.4 % (9.3-17.3); White Blood Count 8.8 T/CUMM (4-12)
[2019-05-19 01:04] LABS: Alanine Aminotransferase 27 U/L (13-56); Albumin 2.8 G/DL (3.4-5.0); Alkaline Phosphatase 77 U/L (45-117); Aspartate Amino Transferase 18 U/L (0-37); Bilirubin,Total < 0.39 MG/DL (0.2-1.0); Blood Urea Nitrogen 21 MG/DL (7-18); Calcium 8.9 MG/DL (8.5-10.1); Estimated Glom Filtration Rate 74 ML/MIN; Glucose 103 MG/DL (74-106); Osmolality,Calculated 281.4 MOS/KG (273-304); Total Protein 7.4 G/DL (6.4-8.3)
[2019-05-19] MEDS ORDERED: ONDANSETRON 4 MG/2 ML VIAL IV STA (01:05)
[2019-05-19] MEDS ORDERED: HYDROmorphone 2 MG/1 ML VIAL IV ONE (01:05)
[2019-05-19] MEDS ORDERED: ONDANSETRON 4 MG/2 ML VIAL ONE (01:06)
[2019-05-19] MEDS ORDERED: ONDANSETRON 4 MG/2 ML VIAL IV PRN (02:20)
[2019-05-19] MEDS ORDERED: VANCOMYCIN INJ 500 MG in SODIUM CHLORIDE 0.9% 100 ML IV ONE (06:00)
[2019-05-19] MEDS: HYDROmorphone 2 MG/1 ML VIAL IV PRN ×2 (06:30→09:59)
[2019-05-19 06:59] LABS: Basophils # 0.1 10*3/uL (0.0-0.2); Basophils % 0.9 % (0.0-0.8); Eosinophils # 0.1 10*3/uL (0.0-0.87); Eosinophils % 1.1 % (0.00-10.9); Hematocrit 35.3 VOL% (35.7-47.0); Hemoglobin 10.7 GM/DL (12.0-16.0); Immature Granulocytes % 0.7 %; Immature Granulocytes Absolute 0.06 #; Lymphocytes # 0.7 10*3/uL (1.4-4.0); Lymphocytes % 8.2 % (21.3-54.2); Mean Corpuscular HGB Conc 30.3 GM/DL (32-36); Mean Corpuscular Volume 95.1 FL (87-102); Mean Platelet Volume 9.7 FL (9.6-12.0); Monocytes % 9.3 % (1.7-12.7); Neutrophils % 79.8 % (38.7-73.9); Platelet Count 330 T/CUMM (130-400); Red Blood Count 3.71 MC/CUMM (3.8-5.5); Red Cell Distribution Width 18.4 % (9.3-17.3); White Blood Count 8.1 T/CUMM (4-12)
[2019-05-19 07:30] LABS: Calcium 8.2 MG/DL (8.5-10.1)
[2019-05-19 07:31] LABS: Albumin 2.2 G/DL (3.4-5.0); Bilirubin,Total 0.6 MG/DL (0.2-1.0); Total Protein 6.4 G/DL (6.4-8.3)
[2019-05-19] MEDS ORDERED: ENOXAPARIN 40 MG/0.4 ML SYRINGE SUBCUT SCH (08:00)
[2019-05-19] MEDS ORDERED: SODIUM HYPOCHLORITE 0.25% IRRIG 473 ML BOTTLE TOP SCH (10:00)
[2019-05-19] MEDS ORDERED: VANCOMYCIN INJ 1,500 MG in SODIUM CHLORIDE 0.9% 500 ML IV SCH (12:00)
[2019-05-19 15:26] VITALS: BP 116/60
== END 2019-05-19 15:37 | disposition home or self-care (01) ==
LOC: EDUNIT# → N.ED 23:17 → INTOOBSV 05-19 02:20 → N.EDINP 05-19 02:20 → N.3E 05-19 03:12
PROVIDERS: ADMIT Internal Medicine; ATTEND Internal Medicine

== ENCOUNTER 2019-08-31 14:00 | Inpatient (IN) ==
[2019-08-31] MEDS ORDERED: VANCOMYCIN INJ 1,000 MG in SODIUM CHLORIDE 0.9% 250 ML IV STA (14:55)
[2019-08-31 15:44] LABS: Basophils # 0.1 10*3/uL (0.0-0.2); Basophils % 0.7 % (0.0-0.8); Eosinophils % 0.4 % (0.00-10.9); Hematocrit 36.5 VOL% (35.7-47.0); Hemoglobin 11.7 GM/DL (12.0-16.0); Immature Granulocytes % 6.4 %; Immature Granulocytes Absolute 0.47 #; Lymphocytes # 0.7 10*3/uL (1.4-4.0); Lymphocytes % 9.6 % (21.3-54.2); Mean Corpuscular HGB Conc 32.1 GM/DL (32-36); Mean Corpuscular Volume 91.3 FL (87-102); Mean Platelet Volume 10.2 FL (9.6-12.0); Monocytes % 5.9 % (1.7-12.7); Platelet Count 337 T/CUMM (130-400); Red Cell Distribution Width 17.8 % (9.3-17.3); White Blood Count 7.3 T/CUMM (4-12)
[2019-08-31] MEDS ORDERED: SODIUM CHLORIDE 0.9% 1,000 ML IV STA (15:47)
[2019-08-31 16:07] LABS: Alanine Aminotransferase 17 U/L (13-56); Albumin 2.8 G/DL (3.4-5.0); Alkaline Phosphatase 66 U/L (45-117); Aspartate Amino Transferase 16 U/L (0-37); Bilirubin,Total < 0.39 MG/DL (0.2-1.0); Blood Urea Nitrogen 132 MG/DL (7-18); Estimated Glom Filtration Rate 9 ML/MIN; Glucose 107 MG/DL (74-106); Osmolality,Calculated 299.1 MOS/KG (273-304); Total Protein 8.2 G/DL (6.4-8.3)
[2019-08-31] MEDS ORDERED: MORPHINE 4 MG/1 ML VIAL IV PRN (16:28)
[2019-08-31] MEDS ORDERED: SODIUM CHLORIDE 0.9% 1,000 ML IV ONE (16:32)
[2019-08-31] MEDS ORDERED: diphenhydrAMINE CAP 25 MG CAPSULE PO PRN (16:38)
[2019-08-31 19:12] LABS: Band Neutrophils 4 % (0-10); Lymphocytes 6 % (20-55); Platelet Estimate Normal; Segmented Neutrophils 84 % (50-85); Total Cells Counted 100
[2019-08-31] MEDS: metroNIDAZOLE INJ 500 MG in PREMIX 1 EACH IV SCH (19:24)
[2019-08-31] MEDS: PANTOPRAZOLE 40 MG TABLET PO SCH (19:24)
[2019-08-31] MEDS: cefTRIAXone 1,000 MG in SYRINGE 1 EACH IV SCH (19:25)
[2019-08-31] MEDS: SODIUM CHLORIDE 0.9% 1,000 ML IV SCH (19:36)
[2019-08-31] MEDS: SODIUM HYPOCHLORITE 0.25% IRRIG 473 ML BOTTLE TOP SCH (22:00)
[2019-09-01] MEDS: metroNIDAZOLE INJ 500 MG in PREMIX 1 EACH IV SCH ×3 (02:33→16:59)
[2019-09-01] MEDS: SODIUM CHLORIDE 0.9% 1,000 ML IV SCH ×3 (02:39→15:30)
[2019-09-01 05:23] LABS: Basophils % 0.5 % (0.0-0.8); Eosinophils % 0.6 % (0.00-10.9); Hematocrit 29.7 VOL% (35.7-47.0); Hemoglobin 9.8 GM/DL (12.0-16.0); Immature Granulocytes % 4.9 %; Lymphocytes # 0.4 10*3/uL (1.4-4.0); Mean Corpuscular Volume 89.5 FL (87-102); Mean Platelet Volume 10.3 FL (9.6-12.0); Monocytes % 7.4 % (1.7-12.7); Neutrophils % 79.6 % (38.7-73.9); Platelet Count 288 T/CUMM (130-400); Red Blood Count 3.32 MC/CUMM (3.8-5.5); Red Cell Distribution Width 17.5 % (9.3-17.3); White Blood Count 6.2 T/CUMM (4-12)
[2019-09-01 05:46] LABS: Albumin 2.2 G/DL (3.4-5.0); Bilirubin,Total 0.4 MG/DL (0.2-1.0); Calcium 7.6 MG/DL (8.5-10.1); Osmolality,Calculated 305.1 MOS/KG (273-304); Total Protein 6.4 G/DL (6.4-8.3)
[2019-09-01] MEDS ORDERED: VANCOMYCIN INJ 1,750 MG in SODIUM CHLORIDE 0.9% 250 ML IV ONE (06:00)
[2019-09-01] MEDS: LEVOTHYROXINE 150 MCG TABLET PO SCH (06:37)
[2019-09-01] MEDS ORDERED: MIDAZOLAM 2 MG/2 ML VIAL ONE (08:34)
[2019-09-01] MEDS ORDERED: ROPIVACAINE 0.5% 30 ML VIAL ONE (08:34)
[2019-09-01] MEDS ORDERED: DEXMEDETOMIDINE 200 MCG/2 ML VIAL ONE (08:35)
[2019-09-01] MEDS ORDERED: ePHEDrine 50 MG/ML AMP ONE (09:11)
[2019-09-01 11:18] LABS: Apearance,Urine CLOUDY (Clear); Bacteria,Urine Occasional /HPF (Few); Bilirubin,Urine Negative (Negative); Blood, Urine Moderate mg/dL (Negative); Glucose,Urine (UA) Negative (Negative); Hyaline Casts,Urine 12 /LPF (0-3); Ketones,Urine Negative (Negative); Nitrite,Urine Negative (Negative); Protein,Urine Negative; RBC,Urine 3 /HPF (0-4); Renal Epithelial Cells,Urine Few /HPF (<1); Squamous Epithelial Cell,Urine Occasional /HPF (0-10); Urine Color Yellow (Yellow); Urine Urobilinogen < 2.0 EU/DL (0.2-1.0); WBC,Urine 167 /HPF (0-6)
[2019-09-01] MEDS ORDERED: propofoL 200 MG/20 ML VIAL IV ONE (11:41)
[2019-09-01] MEDS ORDERED: ETOMIDATE 40 MG/20 ML VIAL IV ONE (11:41)
[2019-09-01] MEDS ORDERED: SEVOFLURANE 1 UNIT/15 MINUTE INH ONE (11:41)
[2019-09-01] MEDS ORDERED: PHENYLEPHRINE DRIP 20 MG/250 ML PREMIX IV ONE (11:41)
[2019-09-01] MEDS ORDERED: LIDOCAINE 2% 5 ML VIAL ONE (11:42)
[2019-09-01] MEDS ORDERED: LEVOFLOXACIN INJ 750 MG in PREMIX 1 EACH IV ONE (12:00)
[2019-09-01] MEDS ORDERED: HYDROmorphone 2 MG/1 ML VIAL ONE (12:48)
[2019-09-01] MEDS ORDERED: ONDANSETRON 4 MG/2 ML VIAL ONE (12:48)
[2019-09-01] MEDS: HYDROmorphone 2 MG/1 ML VIAL IV PRN ×2 (12:50→13:10)
[2019-09-01] MEDS ORDERED: ONDANSETRON 4 MG/2 ML VIAL IV PRN (12:51)
[2019-09-01 13:05] LABS: Basophils % 0.3 % (0.0-0.8); Eosinophils % 0.4 % (0.00-10.9); Hematocrit 32.1 VOL% (35.7-47.0); Hemoglobin 10.1 GM/DL (12.0-16.0); Immature Granulocytes % 5.7 %; Immature Granulocytes Absolute 0.39 #; Lymphocytes # 0.6 10*3/uL (1.4-4.0); Lymphocytes % 8.2 % (21.3-54.2); Mean Corpuscular HGB Conc 31.5 GM/DL (32-36); Mean Corpuscular Volume 92.5 FL (87-102); Mean Platelet Volume 9.8 FL (9.6-12.0); Monocytes % 5.8 % (1.7-12.7); Neutrophils % 79.6 % (38.7-73.9); Platelet Count 293 T/CUMM (130-400); Red Blood Count 3.47 MC/CUMM (3.8-5.5); Red Cell Distribution Width 17.7 % (9.3-17.3); White Blood Count 6.8 T/CUMM (4-12)
[2019-09-01] MEDS ORDERED: LORazepam 2 MG/1 ML VIAL ONE (13:12)
[2019-09-01] MEDS ORDERED: LORazepam 2 MG/1 ML VIAL IV ONE (13:15)
[2019-09-01 13:25] LABS: Calcium 7.3 MG/DL (8.5-10.1); Osmolality,Calculated 305.5 MOS/KG (273-304)
[2019-09-01] MEDS ORDERED: LACTATED RINGERS 1,000 ML IV ONE (13:33)
[2019-09-01] MEDS: SODIUM HYPOCHLORITE 0.25% IRRIG 473 ML BOTTLE TOP SCH (14:16)
[2019-09-01 14:21] LABS: Band Neutrophils 2 % (0-10); Lymphocytes 2 % (20-55); Microcytosis Slight; Segmented Neutrophils 89 % (50-85); Total Cells Counted 100
[2019-09-01] MEDS: PANTOPRAZOLE 40 MG TABLET PO SCH (15:02)
[2019-09-01] MEDS: GABAPENTIN 300 MG CAPSULE PO SCH ×2 (15:02→21:57)
[2019-09-01] MEDS ORDERED: TUBERCULIN SKIN TEST 0.1 ML SYRINGE INTRADERM ONE (16:08)
[2019-09-01] MEDS: cefTRIAXone 1,000 MG in SYRINGE 1 EACH IV SCH (17:27)
[2019-09-02] MEDS: SODIUM CHLORIDE 0.9% 1,000 ML IV SCH ×3 (00:11→18:45)
[2019-09-02] MEDS: metroNIDAZOLE INJ 500 MG in PREMIX 1 EACH IV SCH ×3 (00:13→16:30)
[2019-09-02 06:13] LABS: Basophils % 0.7 % (0.0-0.8); Eosinophils % 0.7 % (0.00-10.9); Hematocrit 27.1 VOL% (35.7-47.0); Hemoglobin 8.5 GM/DL (12.0-16.0); Immature Granulocytes % 5.1 %; Immature Granulocytes Absolute 0.23 #; Lymphocytes # 0.4 10*3/uL (1.4-4.0); Lymphocytes % 9.8 % (21.3-54.2); Mean Corpuscular HGB Conc 31.4 GM/DL (32-36); Mean Corpuscular Volume 93.4 FL (87-102); Monocytes % 7.4 % (1.7-12.7); Neutrophils % 76.3 % (38.7-73.9); Platelet Count 248 T/CUMM (130-400); Red Cell Distribution Width 17.8 % (9.3-17.3); White Blood Count 4.5 T/CUMM (4-12)
[2019-09-02 06:35] LABS: Band Neutrophils 1 % (0-10); Calcium 7.2 MG/DL (8.5-10.1); Eosinophils 1 % (0-10); Hypochromasia 1+; Lymphocytes 8 % (20-55); Osmolality,Calculated 296.4 MOS/KG (273-304); Ovalocytes Slight; Platelet Estimate Adequate; Segmented Neutrophils 84 % (50-85); Total Cells Counted 100
[2019-09-02 06:36] LABS: Microcytosis Slight
[2019-09-02] MEDS: LEVOTHYROXINE 150 MCG TABLET PO SCH (07:36)
[2019-09-02] MEDS: SODIUM HYPOCHLORITE 0.25% IRRIG 473 ML BOTTLE TOP SCH (08:10)
[2019-09-02] MEDS: GABAPENTIN 300 MG CAPSULE PO SCH ×3 (08:14→20:51)
[2019-09-02] MEDS: DOCUSATE SODIUM 100 MG CAPSULE PO PRN (08:15)
[2019-09-02] MEDS: PANTOPRAZOLE 40 MG TABLET PO SCH (08:15)
[2019-09-02] MEDS ORDERED: LIDOCAINE 2% 5 ML VIAL ONE (11:58)
[2019-09-02] MEDS ORDERED: EPINEPHrine 1 MG/ML VIAL ONE (11:58)
[2019-09-02] MEDS: fentaNYL 2 MCG/ROPIV 0.2% EPID 100 ML EPIDURAL SCH (12:52)
[2019-09-02] MEDS: cefTRIAXone 1,000 MG in SYRINGE 1 EACH IV SCH (16:28)
[2019-09-03] MEDS: metroNIDAZOLE INJ 500 MG in PREMIX 1 EACH IV SCH ×2 (01:07→08:43)
[2019-09-03] MEDS: SODIUM CHLORIDE 0.9% 1,000 ML IV SCH ×4 (01:07→20:47)
[2019-09-03 04:52] LABS: Basophils % 0.4 % (0.0-0.8); Eosinophils % 0.9 % (0.00-10.9); Hematocrit 27.6 VOL% (35.7-47.0); Hemoglobin 8.6 GM/DL (12.0-16.0); Immature Granulocytes % 6.2 %; Immature Granulocytes Absolute 0.28 #; Lymphocytes # 0.4 10*3/uL (1.4-4.0); Lymphocytes % 7.9 % (21.3-54.2); Mean Corpuscular HGB Conc 31.2 GM/DL (32-36); Mean Corpuscular Volume 94.5 FL (87-102); Mean Platelet Volume 9.7 FL (9.6-12.0); Monocytes % 5.9 % (1.7-12.7); Neutrophils % 78.7 % (38.7-73.9); Platelet Count 243 T/CUMM (130-400); Red Blood Count 2.92 MC/CUMM (3.8-5.5); Red Cell Distribution Width 18.4 % (9.3-17.3); White Blood Count 4.6 T/CUMM (4-12)
[2019-09-03 05:17] LABS: Band Neutrophils 2 % (0-10); Eosinophils 1 % (0-10); Hypochromasia 1+; Lymphocytes 6 % (20-55); Microcytosis Slight; Ovalocytes Slight; Platelet Estimate Adequate; Segmented Neutrophils 88 % (50-85); Total Cells Counted 100
[2019-09-03 05:19] LABS: Calcium 7.4 MG/DL (8.5-10.1); Osmolality,Calculated 295.1 MOS/KG (273-304)
[2019-09-03] MEDS: POTASSIUM CHLORIDE 20 MEQ TABLET PO PRN (08:43)
[2019-09-03] MEDS: PANTOPRAZOLE 40 MG TABLET PO SCH (08:43)
[2019-09-03] MEDS: LEVOTHYROXINE 150 MCG TABLET PO SCH (08:43)
[2019-09-03] MEDS: GABAPENTIN 300 MG CAPSULE PO SCH ×3 (08:43→20:47)
[2019-09-03] MEDS: SODIUM HYPOCHLORITE 0.25% IRRIG 473 ML BOTTLE TOP SCH (10:55)
[2019-09-03] MEDS ORDERED: LEVOFLOXACIN INJ 500 MG in PREMIX 1 EACH IV SCH (12:00)
[2019-09-03] MEDS: ONDANSETRON 4 MG/2 ML VIAL IV PRN (14:14)
[2019-09-03] MEDS: fentaNYL 2 MCG/ROPIV 0.2% EPID 100 ML EPIDURAL SCH (17:54)
[2019-09-04] MEDS: ONDANSETRON 4 MG/2 ML VIAL IV PRN ×3 (01:04→21:38)
[2019-09-04] MEDS: SODIUM CHLORIDE 0.9% 1,000 ML IV SCH ×2 (06:04→15:05)
[2019-09-04 06:05] LABS: Basophils % 0.4 % (0.0-0.8); Eosinophils # 0.1 10*3/uL (0.0-0.87); Eosinophils % 1.1 % (0.00-10.9); Hematocrit 27.7 VOL% (35.7-47.0); Hemoglobin 8.4 GM/DL (12.0-16.0); Immature Granulocytes % 6.3 %; Immature Granulocytes Absolute 0.28 #; Lymphocytes # 0.3 10*3/uL (1.4-4.0); Lymphocytes % 7.1 % (21.3-54.2); Mean Corpuscular HGB Conc 30.3 GM/DL (32-36); Mean Corpuscular Volume 96.9 FL (87-102); Mean Platelet Volume 9.8 FL (9.6-12.0); Monocytes % 5.6 % (1.7-12.7); Neutrophils % 79.5 % (38.7-73.9); Platelet Count 256 T/CUMM (130-400); Red Blood Count 2.86 MC/CUMM (3.8-5.5); Red Cell Distribution Width 18.8 % (9.3-17.3); White Blood Count 4.5 T/CUMM (4-12)
[2019-09-04 06:24] LABS: Calcium 7.3 MG/DL (8.5-10.1); Osmolality,Calculated 292.7 MOS/KG (273-304)
[2019-09-04 06:38] LABS: Band Neutrophils 3 % (0-10); Eosinophils 2 % (0-10); Lymphocytes 6 % (20-55); Platelet Estimate Adequate; Segmented Neutrophils 85 % (50-85); Total Cells Counted 100
[2019-09-04 06:39] LABS: Hypochromasia Slight; Microcytosis Slight
[2019-09-04] MEDS ORDERED: LEVOFLOXACIN 500 MG TABLET PO SCH (09:00)
[2019-09-04] MEDS: LEVOTHYROXINE 150 MCG TABLET PO SCH (09:54)
[2019-09-04] MEDS: GABAPENTIN 300 MG CAPSULE PO SCH ×3 (09:54→20:55)
[2019-09-04] MEDS ORDERED: MAGNESIUM SULF RIDER 4 GM in PREMIX 1 EACH IV ONE (09:59)
[2019-09-04] MEDS: fentaNYL 2 MCG/ROPIV 0.2% EPID 100 ML EPIDURAL SCH (14:53)
[2019-09-04] MEDS: cephALEXin 500 MG CAPSULE PO SCH ×3 (15:03→23:47)
[2019-09-04] MEDS: SODIUM HYPOCHLORITE 0.25% IRRIG 473 ML BOTTLE TOP SCH (15:04)
[2019-09-04] MEDS: DOCUSATE SODIUM 100 MG CAPSULE PO PRN (17:38)
[2019-09-04] MEDS: POTASSIUM CHLORIDE 20 MEQ TABLET PO PRN ×3 (17:47→23:50)
[2019-09-05] MEDS: POTASSIUM CHLORIDE 20 MEQ TABLET PO PRN (02:26)
[2019-09-05] MEDS: cephALEXin 500 MG CAPSULE PO SCH ×2 (05:46→13:45)
[2019-09-05 06:04] LABS: Basophils % 0.4 % (0.0-0.8); Eosinophils # 0.1 10*3/uL (0.0-0.87); Eosinophils % 1.3 % (0.00-10.9); Hematocrit 28.5 VOL% (35.7-47.0); Hemoglobin 8.9 GM/DL (12.0-16.0); Immature Granulocytes % 5.6 %; Immature Granulocytes Absolute 0.31 #; Lymphocytes # 0.3 10*3/uL (1.4-4.0); Lymphocytes % 6.2 % (21.3-54.2); Mean Corpuscular HGB Conc 31.2 GM/DL (32-36); Mean Corpuscular Volume 95.3 FL (87-102); Mean Platelet Volume 9.9 FL (9.6-12.0); Monocytes % 7.3 % (1.7-12.7); Neutrophils % 79.2 % (38.7-73.9); Platelet Count 243 T/CUMM (130-400); Red Blood Count 2.99 MC/CUMM (3.8-5.5); Red Cell Distribution Width 19.2 % (9.3-17.3); White Blood Count 5.5 T/CUMM (4-12)
[2019-09-05 06:36] LABS: Band Neutrophils 14 % (0-10); Hypochromasia Slight; Lymphocytes 7 % (20-55); Myelocytes 1 %; Segmented Neutrophils 72 % (50-85); Total Cells Counted 100
[2019-09-05 06:37] LABS: Anisocytosis 1+; Platelet Estimate Normal
[2019-09-05 06:38] LABS: Microcytosis 1+
[2019-09-05 06:44] LABS: Calcium 7.8 MG/DL (8.5-10.1)
[2019-09-05] MEDS: GABAPENTIN 300 MG CAPSULE PO SCH ×3 (08:06→20:45)
[2019-09-05] MEDS: DOCUSATE SODIUM 100 MG CAPSULE PO PRN (08:06)
[2019-09-05] MEDS: LEVOTHYROXINE 150 MCG TABLET PO SCH (08:06)
[2019-09-05] MEDS: SODIUM HYPOCHLORITE 0.25% IRRIG 473 ML BOTTLE TOP SCH (10:50)
[2019-09-05] MEDS: fentaNYL 2 MCG/ROPIV 0.2% EPID 100 ML EPIDURAL SCH (12:04)
[2019-09-05] MEDS: CEFEPIME 1,000 MG in SODIUM CHLORIDE 0.9% 100 ML IV SCH ×2 (13:28→20:42)
[2019-09-05] MEDS: ONDANSETRON 4 MG/2 ML VIAL IV PRN ×2 (13:29→19:32)
[2019-09-05] MEDS ORDERED: NICOTINE 21 MG/24 HR PATCH TRANSDERM ONE (22:30)
[2019-09-06] MEDS: CEFEPIME 1,000 MG in SODIUM CHLORIDE 0.9% 100 ML IV SCH ×4 (02:36→20:46)
[2019-09-06 06:33] LABS: Basophils % 0.6 % (0.0-0.8); Eosinophils # 0.1 10*3/uL (0.0-0.87); Eosinophils % 1.2 % (0.00-10.9); Hematocrit 28.7 VOL% (35.7-47.0); Immature Granulocytes % 4.6 %; Immature Granulocytes Absolute 0.23 #; Lymphocytes # 0.4 10*3/uL (1.4-4.0); Lymphocytes % 7.2 % (21.3-54.2); Mean Corpuscular HGB Conc 31.4 GM/DL (32-36); Mean Corpuscular Volume 94.4 FL (87-102); Mean Platelet Volume 10.2 FL (9.6-12.0); Monocytes % 7.6 % (1.7-12.7); Neutrophils % 78.8 % (38.7-73.9); Platelet Count 236 T/CUMM (130-400); Red Blood Count 3.04 MC/CUMM (3.8-5.5); Red Cell Distribution Width 19.4 % (9.3-17.3)
[2019-09-06 06:58] LABS: Calcium 7.8 MG/DL (8.5-10.1); Osmolality,Calculated 286.8 MOS/KG (273-304)
[2019-09-06] MEDS: POTASSIUM CHLORIDE 20 MEQ TABLET PO PRN ×3 (07:16→12:13)
[2019-09-06] MEDS: GABAPENTIN 300 MG CAPSULE PO SCH ×3 (09:46→20:46)
[2019-09-06] MEDS: LEVOTHYROXINE 150 MCG TABLET PO SCH (09:46)
[2019-09-06] MEDS: SODIUM HYPOCHLORITE 0.25% IRRIG 473 ML BOTTLE TOP SCH (11:10)
[2019-09-06] MEDS: fentaNYL 2 MCG/ROPIV 0.2% EPID 100 ML EPIDURAL SCH (12:09)
[2019-09-06] MEDS: ONDANSETRON 4 MG/2 ML VIAL IV PRN ×2 (13:52→19:27)
[2019-09-06] MEDS: ALUMINUM/MAGNES/SIMETH MAX STR 30 ML UDCUP PO PRN (20:47)
[2019-09-07] MEDS: CEFEPIME 1,000 MG in SODIUM CHLORIDE 0.9% 100 ML IV SCH ×4 (02:40→21:00)
[2019-09-07] MEDS: ONDANSETRON 4 MG/2 ML VIAL IV PRN ×3 (04:05→14:24)
[2019-09-07] MEDS: LEVOTHYROXINE 150 MCG TABLET PO SCH (06:30)
[2019-09-07 07:12] LABS: Basophils % 0.3 % (0.0-0.8); Eosinophils % 0.5 % (0.00-10.9); Hematocrit 28.8 VOL% (35.7-47.0); Immature Granulocytes % 2.5 %; Immature Granulocytes Absolute 0.15 #; Lymphocytes # 0.6 10*3/uL (1.4-4.0); Lymphocytes % 9.2 % (21.3-54.2); Mean Corpuscular HGB Conc 31.3 GM/DL (32-36); Mean Corpuscular Volume 93.5 FL (87-102); Mean Platelet Volume 10.7 FL (9.6-12.0); Monocytes % 5.3 % (1.7-12.7); Neutrophils % 82.2 % (38.7-73.9); Platelet Count 236 T/CUMM (130-400); Red Blood Count 3.08 MC/CUMM (3.8-5.5); Red Cell Distribution Width 19.7 % (9.3-17.3)
[2019-09-07 07:49] LABS: Osmolality,Calculated 287.8 MOS/KG (273-304)
[2019-09-07 07:58] LABS: Band Neutrophils 10 % (0-10); Hypochromasia 1+; Lymphocytes 4 % (20-55); Metamyelocytes 1 %; Microcytosis 1+; Myelocytes 2 %; Segmented Neutrophils 74 % (50-85); Total Cells Counted 100
[2019-09-07 07:59] LABS: Platelet Estimate Normal
[2019-09-07] MEDS: ALUMINUM/MAGNES/SIMETH MAX STR 30 ML UDCUP PO PRN ×2 (08:16→14:23)
[2019-09-07] MEDS: GABAPENTIN 300 MG CAPSULE PO SCH ×3 (08:16→20:57)
[2019-09-07] MEDS: DOCUSATE SODIUM 100 MG CAPSULE PO PRN (08:16)
[2019-09-07] MEDS: SODIUM HYPOCHLORITE 0.25% IRRIG 473 ML BOTTLE TOP SCH (08:17)
[2019-09-07] MEDS: NICOTINE 14 MG/24 HR PATCH TRANSDERM SCH (20:57)
[2019-09-08] MEDS: CEFEPIME 1,000 MG in SODIUM CHLORIDE 0.9% 100 ML IV SCH ×4 (02:57→20:25)
[2019-09-08] MEDS: ONDANSETRON 4 MG/2 ML VIAL IV PRN ×2 (03:05→16:40)
[2019-09-08] MEDS: ALUMINUM/MAGNES/SIMETH MAX STR 30 ML UDCUP PO PRN (05:07)
[2019-09-08 06:25] LABS: Basophils % 0.6 % (0.0-0.8); Hematocrit 28.8 VOL% (35.7-47.0); Hemoglobin 9.1 GM/DL (12.0-16.0); Immature Granulocytes % 2.1 %; Immature Granulocytes Absolute 0.14 #; Lymphocytes # 1.1 10*3/uL (1.4-4.0); Lymphocytes % 15.8 % (21.3-54.2); Mean Corpuscular HGB Conc 31.6 GM/DL (32-36); Mean Platelet Volume 11.3 FL (9.6-12.0); Monocytes % 6.8 % (1.7-12.7); Neutrophils % 74.7 % (38.7-73.9); Platelet Count 241 T/CUMM (130-400); Red Blood Count 3.13 MC/CUMM (3.8-5.5); Red Cell Distribution Width 19.5 % (9.3-17.3); White Blood Count 6.7 T/CUMM (4-12)
[2019-09-08 06:49] LABS: Band Neutrophils 8 % (0-10); Eosinophils 1 % (0-10); Lymphocytes 11 % (20-55); Metamyelocytes 1 %; Nucleated Red Blood Cells 2 (0-5); Segmented Neutrophils 74 % (50-85); Total Cells Counted 100
[2019-09-08 06:50] LABS: Anisocytosis Slight; Macrocytosis Slight; Platelet Estimate Normal
[2019-09-08 06:52] LABS: Calcium 7.8 MG/DL (8.5-10.1); Osmolality,Calculated 285.1 MOS/KG (273-304); Thyroid Stimulating Hormone 14.8 uIU/ml (0.358-3.74)
[2019-09-08] MEDS ORDERED: MAGNESIUM SULF RIDER 4 GM in PREMIX 1 EACH IV ONE (07:40)
[2019-09-08] MEDS ORDERED: POTASSIUM CHLORIDE 20 MEQ TABLET PO ONE (07:41)
[2019-09-08] MEDS ORDERED: VANCOMYCIN INJ 1,000 MG in SODIUM CHLORIDE 0.9% 250 ML IV SCH (08:00)
[2019-09-08] MEDS ORDERED: NICOTINE 14 MG/24 HR PATCH TRANSDERM SCH (09:00)
[2019-09-08] MEDS ORDERED: VANCOMYCIN INJ 2,250 MG in SODIUM CHLORIDE 0.9% 500 ML IV ONE (09:00)
[2019-09-08] MEDS: POLYETHYLENE GLYCOL POWDER 17 GM PACK PO SCH (09:04)
[2019-09-08] MEDS: NICOTINE 14 MG/24 HR PATCH TRANSDERM SCH (09:05)
[2019-09-08] MEDS: LEVOTHYROXINE 150 MCG TABLET PO SCH (09:06)
[2019-09-08] MEDS: GABAPENTIN 300 MG CAPSULE PO SCH ×3 (09:06→20:24)
[2019-09-08] MEDS: SODIUM HYPOCHLORITE 0.25% IRRIG 473 ML BOTTLE TOP SCH (09:06)
[2019-09-08] MEDS ORDERED: NICOTINE 21 MG/24 HR PATCH TRANSDERM PRN (10:44)
[2019-09-08] MEDS: POTASSIUM CHLORIDE RIDER 10 MEQ in PREMIX 1 EACH IV SCH ×3 (15:27→16:39)
[2019-09-08 16:48] LABS: Calcium 7.7 MG/DL (8.5-10.1); Osmolality,Calculated 281.3 MOS/KG (273-304)
[2019-09-08] MEDS: VANCOMYCIN INJ 1,750 MG in SODIUM CHLORIDE 0.9% 500 ML IV SCH (21:15)
[2019-09-09] MEDS: CEFEPIME 1,000 MG in SODIUM CHLORIDE 0.9% 100 ML IV SCH ×5 (03:06→20:53)
[2019-09-09] MEDS: LEVOTHYROXINE 175 MCG TABLET PO SCH (06:01)
[2019-09-09] MEDS ORDERED: LEVOTHYROXINE 150 MCG TABLET PO SCH (06:30)
[2019-09-09 07:01] LABS: Basophils % 0.3 % (0.0-0.8); Eosinophils % 0.3 % (0.00-10.9); Hematocrit 28.6 VOL% (35.7-47.0); Hemoglobin 8.9 GM/DL (12.0-16.0); Immature Granulocytes % 1.8 %; Immature Granulocytes Absolute 0.11 #; Lymphocytes # 1.1 10*3/uL (1.4-4.0); Mean Corpuscular HGB Conc 31.1 GM/DL (32-36); Mean Corpuscular Volume 94.7 FL (87-102); Mean Platelet Volume 11.7 FL (9.6-12.0); Monocytes % 6.9 % (1.7-12.7); Neutrophils % 72.7 % (38.7-73.9); Platelet Count 231 T/CUMM (130-400); Red Blood Count 3.02 MC/CUMM (3.8-5.5); Red Cell Distribution Width 19.7 % (9.3-17.3)
[2019-09-09 07:22] LABS: Calcium 7.8 MG/DL (8.5-10.1); Osmolality,Calculated 281.3 MOS/KG (273-304)
[2019-09-09 07:23] LABS: Band Neutrophils 2 % (0-10); Hypochromasia 1+; Lymphocytes 18 % (20-55); Platelet Estimate Adequate; Segmented Neutrophils 71 % (50-85); Total Cells Counted 100
[2019-09-09 07:24] LABS: Microcytosis Slight; Ovalocytes Slight
[2019-09-09] MEDS: VANCOMYCIN INJ 1,750 MG in SODIUM CHLORIDE 0.9% 500 ML IV SCH ×2 (10:46→22:29)
[2019-09-09] MEDS: POTASSIUM CHLORIDE RIDER 10 MEQ in PREMIX 1 EACH IV SCH ×5 (10:47→19:08)
[2019-09-09] MEDS: NICOTINE 14 MG/24 HR PATCH TRANSDERM SCH (10:49)
[2019-09-09] MEDS: SODIUM HYPOCHLORITE 0.25% IRRIG 473 ML BOTTLE TOP SCH (11:07)
[2019-09-09] MEDS: GABAPENTIN 300 MG CAPSULE PO SCH ×3 (11:08→20:53)
[2019-09-09] MEDS: POLYETHYLENE GLYCOL POWDER 17 GM PACK PO SCH (11:09)
[2019-09-09] MEDS: ALUMINUM/MAGNES/SIMETH MAX STR 30 ML UDCUP PO PRN (20:54)
[2019-09-10] MEDS: CEFEPIME 1,000 MG in SODIUM CHLORIDE 0.9% 100 ML IV SCH ×2 (03:11→08:23)
[2019-09-10] MEDS: LEVOTHYROXINE 175 MCG TABLET PO SCH (06:24)
[2019-09-10 06:25] LABS: Basophils % 0.5 % (0.0-0.8); Hematocrit 26.1 VOL% (35.7-47.0); Hemoglobin 8.2 GM/DL (12.0-16.0); Immature Granulocytes % 1.6 %; Immature Granulocytes Absolute 0.07 #; Lymphocytes # 0.9 10*3/uL (1.4-4.0); Lymphocytes % 21.6 % (21.3-54.2); Mean Corpuscular HGB Conc 31.4 GM/DL (32-36); Mean Corpuscular Volume 91.3 FL (87-102); Mean Platelet Volume 11.9 FL (9.6-12.0); Monocytes % 6.5 % (1.7-12.7); Neutrophils % 69.8 % (38.7-73.9); Platelet Count 202 T/CUMM (130-400); Red Blood Count 2.86 MC/CUMM (3.8-5.5); Red Cell Distribution Width 19.6 % (9.3-17.3); White Blood Count 4.3 T/CUMM (4-12)
[2019-09-10 06:40] LABS: Calcium 7.5 MG/DL (8.5-10.1); Osmolality,Calculated 279.4 MOS/KG (273-304)
[2019-09-10 06:56] LABS: Band Neutrophils 6 % (0-10); Hypochromasia 1+; Lymphocytes 16 % (20-55); Microcytosis Slight; Platelet Estimate Adequate; Segmented Neutrophils 72 % (50-85); Total Cells Counted 100
[2019-09-10] MEDS ORDERED: POTASSIUM CHLORIDE 20 MEQ TABLET PO ONE (07:02)
[2019-09-10] MEDS: ONDANSETRON 4 MG/2 ML VIAL IV PRN (07:17)
[2019-09-10] MEDS: NICOTINE 14 MG/24 HR PATCH TRANSDERM SCH (08:48)
[2019-09-10] MEDS: SODIUM HYPOCHLORITE 0.25% IRRIG 473 ML BOTTLE TOP SCH (08:48)
[2019-09-10] MEDS: POLYETHYLENE GLYCOL POWDER 17 GM PACK PO SCH (08:48)
[2019-09-10] MEDS: GABAPENTIN 300 MG CAPSULE PO SCH ×3 (08:48→20:27)
[2019-09-10] MEDS: POTASSIUM CHLORIDE RIDER 10 MEQ in PREMIX 1 EACH IV SCH ×4 (08:57→14:18)
[2019-09-10] MEDS: ALUMINUM/MAGNES/SIMETH MAX STR 30 ML UDCUP PO PRN (09:15)
[2019-09-10] MEDS: VANCOMYCIN INJ 1,750 MG in SODIUM CHLORIDE 0.9% 500 ML IV SCH (09:15)
[2019-09-10] MEDS: DESITIN 4OZ/NYSTATIN 15 GRAM MIXTURE PASTE TOP SCH ×2 (17:59→20:29)
[2019-09-11] MEDS: ALUMINUM/MAGNES/SIMETH MAX STR 30 ML UDCUP PO PRN ×2 (02:39→15:03)
[2019-09-11 05:54] LABS: Calcium 7.1 MG/DL (8.5-10.1); Osmolality,Calculated 281.3 MOS/KG (273-304)
[2019-09-11] MEDS: LEVOTHYROXINE 175 MCG TABLET PO SCH (06:06)
[2019-09-11] MEDS ORDERED: POTASSIUM CHLORIDE 20 MEQ TABLET PO ONE (07:33)
[2019-09-11] MEDS: GABAPENTIN 300 MG CAPSULE PO SCH ×3 (09:57→20:12)
[2019-09-11] MEDS: NICOTINE 14 MG/24 HR PATCH TRANSDERM SCH (09:57)
[2019-09-11] MEDS: POLYETHYLENE GLYCOL POWDER 17 GM PACK PO SCH ×2 (09:57→22:21)
[2019-09-11] MEDS: DESITIN 4OZ/NYSTATIN 15 GRAM MIXTURE PASTE TOP SCH (09:58)
[2019-09-11] MEDS: SODIUM HYPOCHLORITE 0.25% IRRIG 473 ML BOTTLE TOP SCH (09:59)
[2019-09-11 10:06] LABS: Basophils % 0.3 % (0.0-0.8); Eosinophils % 0.3 % (0.00-10.9); Hematocrit 26.6 VOL% (35.7-47.0); Hemoglobin 8.4 GM/DL (12.0-16.0); Immature Granulocytes % 3.5 %; Immature Granulocytes Absolute 0.13 #; Lymphocytes % 25.3 % (21.3-54.2); Mean Corpuscular HGB Conc 31.6 GM/DL (32-36); Mean Platelet Volume 12.3 FL (9.6-12.0); Monocytes % 8.3 % (1.7-12.7); Neutrophils % 62.3 % (38.7-73.9); Platelet Count 214 T/CUMM (130-400); Red Blood Count 2.86 MC/CUMM (3.8-5.5); White Blood Count 3.8 T/CUMM (4-12)
[2019-09-11 10:25] LABS: Band Neutrophils 1 % (0-10); Eosinophils 2 % (0-10); Lymphocytes 15 % (20-55); Nucleated Red Blood Cells 1 (0-5); Platelet Estimate Adequate; Segmented Neutrophils 72 % (50-85); Total Cells Counted 100
[2019-09-11 10:26] LABS: Hypochromasia 1+; Microcytosis Slight; Ovalocytes Slight
[2019-09-11] MEDS ORDERED: MAGNESIUM CITRATE 300 ML BOTTLE PO ONE (16:03)
[2019-09-12] MEDS: DESITIN 4OZ/NYSTATIN 15 GRAM MIXTURE PASTE TOP SCH ×3 (00:40→21:18)
[2019-09-12] MEDS: diphenhydrAMINE CAP 25 MG CAPSULE PO PRN ×2 (05:03→21:12)
[2019-09-12] MEDS: LEVOTHYROXINE 175 MCG TABLET PO SCH (05:49)
[2019-09-12 06:28] LABS: Basophils % 0.5 % (0.0-0.8); Eosinophils % 0.8 % (0.00-10.9); Hemoglobin 8.7 GM/DL (12.0-16.0); Immature Granulocytes % 4.9 %; Immature Granulocytes Absolute 0.18 #; Lymphocytes # 0.9 10*3/uL (1.4-4.0); Lymphocytes % 24.8 % (21.3-54.2); Mean Corpuscular HGB Conc 32.2 GM/DL (32-36); Mean Corpuscular Volume 89.7 FL (87-102); Mean Platelet Volume 12.5 FL (9.6-12.0); NRBC # 0.02 10*3/uL; Platelet Count 232 T/CUMM (130-400); Red Blood Count 3.01 MC/CUMM (3.8-5.5); Red Cell Distribution Width 19.9 % (9.3-17.3); White Blood Count 3.7 T/CUMM (4-12)
[2019-09-12 09:20] LABS: Hypochromasia 1+; Microcytosis 1+; Target Cells Few
[2019-09-12] MEDS: NICOTINE 14 MG/24 HR PATCH TRANSDERM SCH (09:20)
[2019-09-12] MEDS: GABAPENTIN 300 MG CAPSULE PO SCH ×3 (09:20→21:12)
[2019-09-12 09:21] LABS: Ovalocytes Slight; Platelet Estimate Adequate; Schistocytes Slight
[2019-09-12] MEDS: POLYETHYLENE GLYCOL POWDER 17 GM PACK PO SCH ×2 (09:21→21:08)
[2019-09-12] MEDS: SODIUM HYPOCHLORITE 0.25% IRRIG 473 ML BOTTLE TOP SCH ×2 (09:23→09:27)
[2019-09-12] MEDS: ONDANSETRON 4 MG/2 ML VIAL IV PRN (21:16)
[2019-09-13] MEDS: LEVOTHYROXINE 175 MCG TABLET PO SCH (06:11)
[2019-09-13] MEDS: ACETAMINOPHEN 325 MG TABLET PO PRN (09:07)
[2019-09-13] MEDS: GABAPENTIN 300 MG CAPSULE PO SCH ×3 (09:08→20:23)
[2019-09-13] MEDS: POLYETHYLENE GLYCOL POWDER 17 GM PACK PO SCH ×2 (09:09→20:18)
[2019-09-13] MEDS: DESITIN 4OZ/NYSTATIN 15 GRAM MIXTURE PASTE TOP SCH ×2 (09:10→20:24)
[2019-09-13] MEDS: NICOTINE 14 MG/24 HR PATCH TRANSDERM SCH (09:11)
[2019-09-13] MEDS: SODIUM HYPOCHLORITE 0.25% IRRIG 473 ML BOTTLE TOP SCH (09:12)
[2019-09-13] MEDS: MULTIVITAMIN (CENTRUM) TABLET PO SCH (10:57)
[2019-09-13] MEDS: SIMETHICONE CHEW 80 MG TABLET PO PRN ×2 (10:57→20:23)
[2019-09-13] MEDS: diphenhydrAMINE CAP 25 MG CAPSULE PO PRN (20:23)
[2019-09-13] MEDS: ONDANSETRON 4 MG/2 ML VIAL IV PRN (20:24)
[2019-09-13 22:23] LABS: Albumin 1.4 G/DL (3.4-5.0); Calcium 7.5 MG/DL (8.5-10.1); Ferritin 1309.6 ng/ml (8-252); Osmolality,Calculated 275.7 MOS/KG (273-304); Total Protein 5.7 G/DL (6.4-8.3)
[2019-09-14] MEDS ORDERED: ENOXAPARIN 40 MG/0.4 ML SYRINGE SUBCUT SCH (01:00)
[2019-09-14 05:51] LABS: Basophils % 0.8 % (0.0-0.8); Hematocrit 26.9 VOL% (35.7-47.0); Hemoglobin 8.7 GM/DL (12.0-16.0); Immature Granulocytes % 6.9 %; Immature Granulocytes Absolute 0.35 #; Lymphocytes # 1.5 10*3/uL (1.4-4.0); Lymphocytes % 30.3 % (21.3-54.2); Mean Corpuscular HGB Conc 32.3 GM/DL (32-36); Mean Corpuscular Volume 89.7 FL (87-102); Mean Platelet Volume 12.5 FL (9.6-12.0); Monocytes % 10.5 % (1.7-12.7); NRBC # 0.03 10*3/uL; Neutrophils % 51.5 % (38.7-73.9); Platelet Count 271 T/CUMM (130-400); White Blood Count 5.1 T/CUMM (4-12)
[2019-09-14 06:04] LABS: Calcium 7.5 MG/DL (8.5-10.1); Osmolality,Calculated 276.5 MOS/KG (273-304)
[2019-09-14 06:05] LABS: Albumin 1.5 G/DL (3.4-5.0); Bilirubin,Direct 0.74 MG/DL (0.0-0.20); Bilirubin,Indirect 0.4 MG/DL (0.0-1.0); Bilirubin,Total 1.1 MG/DL (0.2-1.0); Total Protein 5.7 G/DL (6.4-8.3)
[2019-09-14] MEDS: LEVOTHYROXINE 175 MCG TABLET PO SCH (06:06)
[2019-09-14] MEDS: ENOXAPARIN 40 MG/0.4 ML SYRINGE SUBCUT SCH ×2 (06:06→08:48)
[2019-09-14 06:22] LABS: Band Neutrophils 5 % (0-10); Eosinophils 2 % (0-10); INR 1.2; Lymphocytes 25 % (20-55); Nucleated Red Blood Cells 3 (0-5); Partial Thromboplastin Time 35.9 SECS (23.9-33.8); Segmented Neutrophils 55 % (50-85); Total Cells Counted 100
[2019-09-14 06:23] LABS: Hypochromasia 1+; Microcytosis 1+; Ovalocytes Slight; Platelet Estimate Adequate
[2019-09-14] MEDS: MULTIVITAMIN (CENTRUM) TABLET PO SCH (08:48)
[2019-09-14] MEDS: diphenhydrAMINE CAP 25 MG CAPSULE PO PRN ×3 (08:48→22:00)
[2019-09-14] MEDS: GABAPENTIN 300 MG CAPSULE PO SCH ×3 (08:48→20:30)
[2019-09-14] MEDS: NICOTINE 14 MG/24 HR PATCH TRANSDERM SCH (08:48)
[2019-09-14] MEDS: AZITHROMYCIN 250 MG TABLET PO SCH (08:48)
[2019-09-14] MEDS: POLYETHYLENE GLYCOL POWDER 17 GM PACK PO SCH ×2 (08:49→22:03)
[2019-09-14 09:39] LABS: Hepatitis B Core IgM Quant 0.06 Index; Hepatitis B Surface Ag Quant 0.16 Index; Hepatitis B Surface Ag Result Negative (Negative); Hepatitis C Virus Ab Quant 0.03 Index; Hepatitis C Virus Ab Result Negative (Negative)
[2019-09-14] MEDS: SODIUM HYPOCHLORITE 0.25% IRRIG 473 ML BOTTLE TOP SCH (13:23)
[2019-09-14] MEDS: DESITIN 4OZ/NYSTATIN 15 GRAM MIXTURE PASTE TOP SCH ×2 (13:23→20:30)
[2019-09-14] MEDS: ONDANSETRON 4 MG/2 ML VIAL IV PRN (13:34)
[2019-09-15 05:54] LABS: Hematocrit 27.5 VOL% (35.7-47.0); Hemoglobin 8.8 GM/DL (12.0-16.0); Mean Corpuscular Volume 89.9 FL (87-102); Red Blood Count 3.06 MC/CUMM (3.8-5.5); White Blood Count 5.4 T/CUMM (4-12)
[2019-09-15 05:55] LABS: Basophils # 0.1 10*3/uL (0.0-0.2); Basophils % 0.9 % (0.0-0.8); Eosinophils # 0.1 10*3/uL (0.0-0.87); Eosinophils % 0.9 % (0.00-10.9); Immature Granulocytes % 8.2 %; Immature Granulocytes Absolute 0.44 #; Lymphocytes # 1.8 10*3/uL (1.4-4.0); Lymphocytes % 33.2 % (21.3-54.2); Mean Platelet Volume 12.1 FL (9.6-12.0); Monocytes % 9.3 % (1.7-12.7); NRBC # 0.02 10*3/uL; Neutrophils % 47.5 % (38.7-73.9); Platelet Count 252 T/CUMM (130-400)
[2019-09-15 06:10] LABS: Albumin 1.4 G/DL (3.4-5.0); Bilirubin,Total 1.6 MG/DL (0.2-1.0); Calcium 7.7 MG/DL (8.5-10.1); Osmolality,Calculated 270.8 MOS/KG (273-304); Total Protein 5.7 G/DL (6.4-8.3)
[2019-09-15] MEDS: LEVOTHYROXINE 175 MCG TABLET PO SCH (06:10)
[2019-09-15 06:22] LABS: Band Neutrophils 5 % (0-10); Lymphocytes 27 % (20-55); Nucleated Red Blood Cells 1 (0-5); Platelet Estimate Adequate; Segmented Neutrophils 53 % (50-85); Total Cells Counted 100
[2019-09-15 06:23] LABS: Hypochromasia 1+; Microcytosis 1+
[2019-09-15] MEDS: SODIUM HYPOCHLORITE 0.25% IRRIG 473 ML BOTTLE TOP SCH (09:16)
[2019-09-15] MEDS: ENOXAPARIN 40 MG/0.4 ML SYRINGE SUBCUT SCH (09:16)
[2019-09-15] MEDS: POLYETHYLENE GLYCOL POWDER 17 GM PACK PO SCH ×2 (09:16→22:21)
[2019-09-15] MEDS: MULTIVITAMIN (CENTRUM) TABLET PO SCH (09:16)
[2019-09-15] MEDS: DESITIN 4OZ/NYSTATIN 15 GRAM MIXTURE PASTE TOP SCH ×2 (09:17→20:55)
[2019-09-15] MEDS: AZITHROMYCIN 250 MG TABLET PO SCH (09:17)
[2019-09-15] MEDS: NICOTINE 14 MG/24 HR PATCH TRANSDERM SCH (09:17)
[2019-09-15] MEDS: diphenhydrAMINE CAP 25 MG CAPSULE PO PRN ×2 (09:17→23:10)
[2019-09-15] MEDS: GABAPENTIN 300 MG CAPSULE PO SCH ×3 (11:25→20:55)
[2019-09-15] MEDS: SIMETHICONE CHEW 80 MG TABLET PO PRN (15:12)
[2019-09-16] MEDS: ACETAMINOPHEN 325 MG TABLET PO PRN (01:12)
[2019-09-16 06:05] LABS: Basophils # 0.1 10*3/uL (0.0-0.2); Eosinophils # 0.1 10*3/uL (0.0-0.87); Eosinophils % 1.8 % (0.00-10.9); Hematocrit 27.6 VOL% (35.7-47.0); Hemoglobin 8.9 GM/DL (12.0-16.0); Immature Granulocytes % 8.1 %; Lymphocytes # 1.5 10*3/uL (1.4-4.0); Lymphocytes % 30.3 % (21.3-54.2); Mean Corpuscular HGB Conc 32.2 GM/DL (32-36); Mean Corpuscular Volume 89.3 FL (87-102); Mean Platelet Volume 12.1 FL (9.6-12.0); Monocytes % 11.2 % (1.7-12.7); NRBC # 0.03 10*3/uL; Neutrophils % 47.6 % (38.7-73.9); Platelet Count 281 T/CUMM (130-400); Red Blood Count 3.09 MC/CUMM (3.8-5.5); Red Cell Distribution Width 20.1 % (9.3-17.3); White Blood Count 4.9 T/CUMM (4-12)
[2019-09-16 06:33] LABS: Band Neutrophils 11 % (0-10); Eosinophils 1 % (0-10); Lymphocytes 22 % (20-55); Metamyelocytes 3 %; Myelocytes 1 %; Nucleated Red Blood Cells 1 (0-5); Segmented Neutrophils 47 % (50-85); Total Cells Counted 100
[2019-09-16 06:34] LABS: Hypochromasia 1+; Microcytosis 1+; Platelet Estimate Normal; Polychromasia Slight; Target Cells Slight
[2019-09-16 06:47] LABS: Albumin 1.4 G/DL (3.4-5.0); Bilirubin,Direct 1.5 MG/DL (0.0-0.20); Bilirubin,Indirect 0.5 MG/DL (0.0-1.0); Total Protein 5.9 G/DL (6.4-8.3)
[2019-09-16] MEDS: LEVOTHYROXINE 175 MCG TABLET PO SCH (07:01)
[2019-09-16] MEDS: SODIUM HYPOCHLORITE 0.25% IRRIG 473 ML BOTTLE TOP SCH (09:23)
[2019-09-16] MEDS: NICOTINE 14 MG/24 HR PATCH TRANSDERM SCH (09:40)
[2019-09-16] MEDS: MULTIVITAMIN (CENTRUM) TABLET PO SCH (09:40)
[2019-09-16] MEDS: GABAPENTIN 300 MG CAPSULE PO SCH ×3 (09:40→20:51)
[2019-09-16] MEDS: DESITIN 4OZ/NYSTATIN 15 GRAM MIXTURE PASTE TOP SCH ×2 (09:40→20:51)
[2019-09-16] MEDS: AZITHROMYCIN 250 MG TABLET PO SCH (09:40)
[2019-09-16] MEDS: ENOXAPARIN 40 MG/0.4 ML SYRINGE SUBCUT SCH (09:40)
[2019-09-16] MEDS: POLYETHYLENE GLYCOL POWDER 17 GM PACK PO SCH ×2 (10:27→20:51)
[2019-09-16] MEDS: SIMETHICONE CHEW 80 MG TABLET PO PRN (14:00)
[2019-09-16] MEDS: diphenhydrAMINE CAP 25 MG CAPSULE PO PRN ×2 (14:00→22:27)
[2019-09-16] MEDS ORDERED: ALPRAZolam 0.5 MG TABLET PO PRN (17:10)
[2019-09-16] MEDS ORDERED: ALPRAZolam 0.5 MG TABLET PO ONE (17:10)
[2019-09-17] MEDS: LEVOTHYROXINE 175 MCG TABLET PO SCH (07:18)
[2019-09-17] MEDS: ENOXAPARIN 40 MG/0.4 ML SYRINGE SUBCUT SCH (09:24)
[2019-09-17] MEDS: NICOTINE 14 MG/24 HR PATCH TRANSDERM SCH (09:24)
[2019-09-17] MEDS: POLYETHYLENE GLYCOL POWDER 17 GM PACK PO SCH ×2 (09:24→21:54)
[2019-09-17] MEDS: DESITIN 4OZ/NYSTATIN 15 GRAM MIXTURE PASTE TOP SCH ×2 (09:24→21:15)
[2019-09-17] MEDS: MULTIVITAMIN (CENTRUM) TABLET PO SCH (09:24)
[2019-09-17] MEDS: AZITHROMYCIN 250 MG TABLET PO SCH (09:24)
[2019-09-17] MEDS: GABAPENTIN 300 MG CAPSULE PO SCH ×3 (09:24→21:15)
[2019-09-17] MEDS: SIMETHICONE CHEW 80 MG TABLET PO PRN ×2 (11:05→18:49)
[2019-09-17 11:37] LABS: Basophils # 0.1 10*3/uL (0.0-0.2); Eosinophils # 0.1 10*3/uL (0.0-0.87); Eosinophils % 1.5 % (0.00-10.9); Hematocrit 32.4 VOL% (35.7-47.0); Immature Granulocytes % 8.6 %; Immature Granulocytes Absolute 0.52 #; Lymphocytes # 1.6 10*3/uL (1.4-4.0); Lymphocytes % 25.9 % (21.3-54.2); Mean Corpuscular HGB Conc 30.9 GM/DL (32-36); Mean Corpuscular Volume 94.5 FL (87-102); Mean Platelet Volume 11.8 FL (9.6-12.0); Monocytes % 7.4 % (1.7-12.7); NRBC # 0.05 10*3/uL; Neutrophils % 55.6 % (38.7-73.9); Platelet Count 326 T/CUMM (130-400); Red Blood Count 3.43 MC/CUMM (3.8-5.5); Red Cell Distribution Width 20.7 % (9.3-17.3); White Blood Count 6.1 T/CUMM (4-12)
[2019-09-17 11:55] LABS: Albumin 1.6 G/DL (3.4-5.0); Bilirubin,Total 2.5 MG/DL (0.2-1.0); Calcium 8.2 MG/DL (8.5-10.1); Osmolality,Calculated 268.1 MOS/KG (273-304); Total Protein 6.9 G/DL (6.4-8.3)
[2019-09-17] MEDS: SODIUM HYPOCHLORITE 0.25% IRRIG 473 ML BOTTLE TOP SCH (12:09)
[2019-09-17 13:39] LABS: Band Neutrophils 2 % (0-10); Eosinophils 1 % (0-10); Lymphocytes 21 % (20-55); Myelocytes 1 %; Nucleated Red Blood Cells 2 (0-5); Platelet Estimate Normal; Segmented Neutrophils 70 % (50-85); Total Cells Counted 100
[2019-09-17 13:40] LABS: Hypochromasia Slight; Target Cells Slight
[2019-09-17] MEDS: ACETAMINOPHEN 325 MG TABLET PO PRN (17:00)
[2019-09-17] MEDS: ONDANSETRON 4 MG/2 ML VIAL IV PRN (18:49)
[2019-09-18] MEDS: diphenhydrAMINE CAP 25 MG CAPSULE PO PRN ×2 (02:40→23:16)
[2019-09-18 05:10] LABS: Basophils # 0.1 10*3/uL (0.0-0.2); Eosinophils # 0.1 10*3/uL (0.0-0.87); Hemoglobin 8.6 GM/DL (12.0-16.0); Immature Granulocytes % 8.5 %; Lymphocytes # 1.5 10*3/uL (1.4-4.0); Lymphocytes % 25.8 % (21.3-54.2); Mean Corpuscular HGB Conc 30.7 GM/DL (32-36); Mean Corpuscular Volume 93.6 FL (87-102); Mean Platelet Volume 11.8 FL (9.6-12.0); Monocytes % 9.2 % (1.7-12.7); NRBC # 0.03 10*3/uL; Neutrophils % 54.5 % (38.7-73.9); Platelet Count 310 T/CUMM (130-400); Red Blood Count 2.99 MC/CUMM (3.8-5.5); Red Cell Distribution Width 20.6 % (9.3-17.3); White Blood Count 5.9 T/CUMM (4-12)
[2019-09-18 05:37] LABS: Atypical Lymphocytes Few; Band Neutrophils 3 % (0-10); Eosinophils 3 % (0-10); Lymphocytes 26 % (20-55); Myelocytes 2 %; Segmented Neutrophils 55 % (50-85); Total Cells Counted 100
[2019-09-18 05:38] LABS: Anisocytosis 1+; Hypochromasia 1+; Microcytosis 1+; Platelet Estimate Normal; Polychromasia Slight; Target Cells Few
[2019-09-18] MEDS: LEVOTHYROXINE 175 MCG TABLET PO SCH (06:03)
[2019-09-18 08:22] LABS: Albumin 1.4 G/DL (3.4-5.0); Bilirubin,Direct 1.89 MG/DL (0.0-0.20); Bilirubin,Indirect 0.5 MG/DL (0.0-1.0); Bilirubin,Total 2.4 MG/DL (0.2-1.0); Total Protein 5.9 G/DL (6.4-8.3)
[2019-09-18] MEDS: GABAPENTIN 300 MG CAPSULE PO SCH ×3 (09:32→20:29)
[2019-09-18] MEDS: ENOXAPARIN 40 MG/0.4 ML SYRINGE SUBCUT SCH (09:32)
[2019-09-18] MEDS: NICOTINE 14 MG/24 HR PATCH TRANSDERM SCH (09:32)
[2019-09-18] MEDS: POLYETHYLENE GLYCOL POWDER 17 GM PACK PO SCH ×2 (09:32→20:29)
[2019-09-18] MEDS: SODIUM HYPOCHLORITE 0.25% IRRIG 473 ML BOTTLE TOP SCH (09:32)
[2019-09-18] MEDS: MULTIVITAMIN (CENTRUM) TABLET PO SCH (09:32)
[2019-09-18] MEDS: DESITIN 4OZ/NYSTATIN 15 GRAM MIXTURE PASTE TOP SCH ×2 (09:33→20:31)
[2019-09-18] MEDS: AZITHROMYCIN 250 MG TABLET PO SCH (09:33)
[2019-09-18] MEDS: ACETAMINOPHEN 325 MG TABLET PO PRN (20:29)
[2019-09-19] MEDS: LEVOTHYROXINE 175 MCG TABLET PO SCH (06:20)
[2019-09-19 06:49] LABS: INR 1.1; PT Patient Result 11.8 SECS (9.8-11.9)
[2019-09-19 07:14] LABS: Albumin 1.3 G/DL (3.4-5.0); Bilirubin,Direct 1.57 MG/DL (0.0-0.20); Bilirubin,Indirect 0.4 MG/DL (0.0-1.0); Total Protein 5.9 G/DL (6.4-8.3)
[2019-09-19] MEDS: MULTIVITAMIN (CENTRUM) TABLET PO SCH (09:25)
[2019-09-19] MEDS: SODIUM HYPOCHLORITE 0.25% IRRIG 473 ML BOTTLE TOP SCH (09:35)
[2019-09-19] MEDS: ENOXAPARIN 40 MG/0.4 ML SYRINGE SUBCUT SCH (09:35)
[2019-09-19] MEDS: GABAPENTIN 300 MG CAPSULE PO SCH ×3 (09:35→20:45)
[2019-09-19] MEDS: DESITIN 4OZ/NYSTATIN 15 GRAM MIXTURE PASTE TOP SCH (09:35)
[2019-09-19] MEDS: AZITHROMYCIN 250 MG TABLET PO SCH (09:35)
[2019-09-19] MEDS: NICOTINE 14 MG/24 HR PATCH TRANSDERM SCH (09:35)
[2019-09-19] MEDS: POLYETHYLENE GLYCOL POWDER 17 GM PACK PO SCH ×2 (10:36→20:45)
[2019-09-19] MEDS: SIMETHICONE CHEW 80 MG TABLET PO PRN (12:40)
[2019-09-19] MEDS: diphenhydrAMINE CAP 25 MG CAPSULE PO PRN (20:45)
[2019-09-19] MEDS: ACETAMINOPHEN 325 MG TABLET PO PRN (20:45)
[2019-09-20 04:30] LABS: Albumin 1.5 G/DL (3.4-5.0); Bilirubin,Total 2.1 MG/DL (0.2-1.0); Calcium 7.7 MG/DL (8.5-10.1); Osmolality,Calculated 278.4 MOS/KG (273-304); Total Protein 6.5 G/DL (6.4-8.3)
[2019-09-20] MEDS: DESITIN 4OZ/NYSTATIN 15 GRAM MIXTURE PASTE TOP SCH ×3 (06:15→20:55)
[2019-09-20] MEDS: LEVOTHYROXINE 175 MCG TABLET PO SCH (06:21)
[2019-09-20] MEDS: MULTIVITAMIN (CENTRUM) TABLET PO SCH (08:56)
[2019-09-20] MEDS: AZITHROMYCIN 250 MG TABLET PO SCH (08:56)
[2019-09-20] MEDS: ENOXAPARIN 40 MG/0.4 ML SYRINGE SUBCUT SCH (08:56)
[2019-09-20] MEDS: POLYETHYLENE GLYCOL POWDER 17 GM PACK PO SCH ×2 (08:56→20:55)
[2019-09-20] MEDS: NICOTINE 14 MG/24 HR PATCH TRANSDERM SCH (08:56)
[2019-09-20] MEDS: SODIUM HYPOCHLORITE 0.25% IRRIG 473 ML BOTTLE TOP SCH (08:56)
[2019-09-20] MEDS: GABAPENTIN 300 MG CAPSULE PO SCH ×3 (08:56→20:55)
[2019-09-20] MEDS: ACETAMINOPHEN 325 MG TABLET PO PRN (11:30)
[2019-09-20] MEDS: SIMETHICONE CHEW 80 MG TABLET PO PRN (12:00)
[2019-09-21 04:29] LABS: Albumin 1.5 G/DL (3.4-5.0); Bilirubin,Direct 1.38 MG/DL (0.0-0.20); Bilirubin,Indirect 0.5 MG/DL (0.0-1.0); Bilirubin,Total 1.9 MG/DL (0.2-1.0); Total Protein 6.7 G/DL (6.4-8.3)
[2019-09-21] MEDS: LEVOTHYROXINE 175 MCG TABLET PO SCH (06:23)
[2019-09-21] MEDS: GABAPENTIN 300 MG CAPSULE PO SCH ×2 (09:26→14:44)
[2019-09-21] MEDS: MULTIVITAMIN (CENTRUM) TABLET PO SCH (09:26)
[2019-09-21] MEDS: ENOXAPARIN 40 MG/0.4 ML SYRINGE SUBCUT SCH (09:26)
[2019-09-21] MEDS: POLYETHYLENE GLYCOL POWDER 17 GM PACK PO SCH (09:26)
[2019-09-21] MEDS: NICOTINE 14 MG/24 HR PATCH TRANSDERM SCH (09:27)
[2019-09-21] MEDS: AZITHROMYCIN 250 MG TABLET PO SCH (09:27)
[2019-09-21 11:55] LABS: Double Stranded DNA Antibodies < 25.0 IU/ML
[2019-09-21 11:59] LABS: Anti SS-A Antibodies < 16 EU/ML
[2019-09-21 12:20] VITALS: BP 116/60
[2019-09-21] MEDS: DESITIN 4OZ/NYSTATIN 15 GRAM MIXTURE PASTE TOP SCH (12:20)
[2019-09-21] MEDS: SODIUM HYPOCHLORITE 0.25% IRRIG 473 ML BOTTLE TOP SCH (12:20)
[2019-09-21] MEDS: SIMETHICONE CHEW 80 MG TABLET PO PRN (14:45)
== END 2019-09-21 15:12 | disposition swing bed (61) | DRG 239 ==
LOC: N.ED 14:00 → N.EDINP 16:25 → SUATTDRO 16:25 → N.3E 17:22 → N.2E 09-13 22:48 → N.2W 09-19 13:19
PROVIDERS: ADMIT Internal Medicine; ATTEND Internal Medicine

== ENCOUNTER 2019-09-29 11:00 | Inpatient (IN) ==
[2019-09-29] MEDS ORDERED: DEXTROSE 10% 250 ML BAG IV PRN (16:00)
[2019-09-29] MEDS ORDERED: GLUCAGON 1 MG VIAL IM PRN (16:00)
[2019-09-29] MEDS ORDERED: LEVOTHYROXINE 50 MCG TABLET PO SCH (16:30)
[2019-09-29 17:07] LABS: Albumin 1.9 G/DL (3.4-5.0); Bilirubin,Total 1.5 MG/DL (0.2-1.0); Calcium 8.9 MG/DL (8.5-10.1); Osmolality,Calculated 272.1 MOS/KG (273-304); Total Protein 7.2 G/DL (6.4-8.3)
[2019-09-29 17:21] LABS: Thyroid Stimulating Hormone 5.64 uIU/ml (0.358-3.74)
[2019-09-29 18:01] LABS: Basophils # 0.1 10*3/uL (0.0-0.2); Eosinophils # 0.2 10*3/uL (0.0-0.87); Eosinophils % 3.5 % (0.00-10.9); Hematocrit 35.5 VOL% (35.7-47.0); Hemoglobin 10.5 GM/DL (12.0-16.0); Immature Granulocytes % 2.8 %; Immature Granulocytes Absolute 0.17 #; Lymphocytes # 1.2 10*3/uL (1.4-4.0); Mean Corpuscular HGB Conc 29.6 GM/DL (32-36); Mean Corpuscular Volume 102.3 FL (87-102); Mean Platelet Volume 11.4 FL (9.6-12.0); Monocytes % 7.6 % (1.7-12.7); Neutrophils % 64.1 % (38.7-73.9); Platelet Count 329 T/CUMM (130-400); Red Blood Count 3.47 MC/CUMM (3.8-5.5); Red Cell Distribution Width 20.9 % (9.3-17.3); White Blood Count 6.1 T/CUMM (4-12)
[2019-09-29] MEDS: ACETAMINOPHEN 325 MG TABLET PO PRN (18:05)
[2019-09-29] MEDS: NYSTATIN POWDER 15 GM BOTTLE TOP SCH (21:00)
[2019-09-29] MEDS: GABAPENTIN 300 MG CAPSULE PO SCH (21:10)
[2019-09-29] MEDS: ENOXAPARIN 40 MG/0.4 ML SYRINGE SUBCUT SCH (21:10)
[2019-09-29] MEDS: allopurinoL 300 MG TABLET PO SCH (21:10)
[2019-09-29] MEDS: ONDANSETRON 4 MG/2 ML VIAL IV PRN (21:11)
[2019-09-30] MEDS: diphenhydrAMINE CAP 25 MG CAPSULE PO PRN (00:21)
[2019-09-30 05:10] LABS: Basophils # 0.1 10*3/uL (0.0-0.2); Basophils % 1.3 % (0.0-0.8); Eosinophils # 0.2 10*3/uL (0.0-0.87); Eosinophils % 3.2 % (0.00-10.9); Hematocrit 32.3 VOL% (35.7-47.0); Hemoglobin 9.7 GM/DL (12.0-16.0); Immature Granulocytes % 2.6 %; Immature Granulocytes Absolute 0.14 #; Lymphocytes # 1.2 10*3/uL (1.4-4.0); Lymphocytes % 23.4 % (21.3-54.2); Mean Corpuscular Volume 100.3 FL (87-102); Mean Platelet Volume 11.6 FL (9.6-12.0); Monocytes % 10.6 % (1.7-12.7); Neutrophils % 58.9 % (38.7-73.9); Platelet Count 280 T/CUMM (130-400); Red Blood Count 3.22 MC/CUMM (3.8-5.5); White Blood Count 5.3 T/CUMM (4-12)
[2019-09-30] MEDS ORDERED: TUBERCULIN SKIN TEST 0.1 ML SYRINGE INTRADERM ONE (08:10)
[2019-09-30] MEDS: NYSTATIN POWDER 15 GM BOTTLE TOP SCH ×3 (09:30→20:55)
[2019-09-30] MEDS: GABAPENTIN 300 MG CAPSULE PO SCH ×3 (09:31→20:47)
[2019-09-30] MEDS: PANTOPRAZOLE 40 MG TABLET PO SCH (09:31)
[2019-09-30] MEDS: LEVOTHYROXINE 175 MCG TABLET PO SCH (09:31)
[2019-09-30] MEDS: LISINOPRIL/HCTZ 10-12.5 MG TABLET PO SCH (09:31)
[2019-09-30 14:29] LABS: Calcium 9.1 MG/DL (8.5-10.1); Osmolality,Calculated 273.8 MOS/KG (273-304)
[2019-09-30] MEDS: ENOXAPARIN 40 MG/0.4 ML SYRINGE SUBCUT SCH (20:47)
[2019-09-30] MEDS: allopurinoL 300 MG TABLET PO SCH (20:48)
[2019-10-01 05:52] LABS: Calcium 9.4 MG/DL (8.5-10.1); Osmolality,Calculated 275.8 MOS/KG (273-304)
[2019-10-01 05:55] LABS: Basophils # 0.1 10*3/uL (0.0-0.2); Basophils % 1.9 % (0.0-0.8); Eosinophils # 0.2 10*3/uL (0.0-0.87); Eosinophils % 2.8 % (0.00-10.9); Hematocrit 35.2 VOL% (35.7-47.0); Hemoglobin 10.7 GM/DL (12.0-16.0); Immature Granulocytes % 3.9 %; Immature Granulocytes Absolute 0.21 #; Lymphocytes # 1.2 10*3/uL (1.4-4.0); Lymphocytes % 23.3 % (21.3-54.2); Mean Corpuscular HGB Conc 30.4 GM/DL (32-36); Mean Corpuscular Volume 101.1 FL (87-102); Mean Platelet Volume 11.9 FL (9.6-12.0); Monocytes % 10.5 % (1.7-12.7); Neutrophils % 57.6 % (38.7-73.9); Platelet Count 284 T/CUMM (130-400); Red Blood Count 3.48 MC/CUMM (3.8-5.5); Red Cell Distribution Width 20.8 % (9.3-17.3); White Blood Count 5.3 T/CUMM (4-12)
[2019-10-01] MEDS: LEVOTHYROXINE 175 MCG TABLET PO SCH (09:16)
[2019-10-01] MEDS: NYSTATIN POWDER 15 GM BOTTLE TOP SCH ×3 (09:16→20:54)
[2019-10-01] MEDS: PANTOPRAZOLE 40 MG TABLET PO SCH (09:16)
[2019-10-01] MEDS: GABAPENTIN 300 MG CAPSULE PO SCH ×3 (09:16→20:54)
[2019-10-01] MEDS: LISINOPRIL/HCTZ 10-12.5 MG TABLET PO SCH (09:16)
[2019-10-01] MEDS: ACETAMINOPHEN 325 MG TABLET PO PRN (11:11)
[2019-10-01] MEDS: ONDANSETRON 4 MG/2 ML VIAL IV PRN (16:06)
[2019-10-01] MEDS: POLYETHYLENE GLYCOL POWDER 17 GM PACK PO SCH (17:49)
[2019-10-01] MEDS: allopurinoL 300 MG TABLET PO SCH (20:54)
[2019-10-01] MEDS: ENOXAPARIN 40 MG/0.4 ML SYRINGE SUBCUT SCH (20:54)
[2019-10-02] MEDS: diphenhydrAMINE CAP 25 MG CAPSULE PO PRN ×2 (00:28→23:40)
[2019-10-02 05:06] LABS: Basophils # 0.1 10*3/uL (0.0-0.2); Basophils % 1.9 % (0.0-0.8); Eosinophils # 0.2 10*3/uL (0.0-0.87); Eosinophils % 3.3 % (0.00-10.9); Hematocrit 34.8 VOL% (35.7-47.0); Hemoglobin 10.3 GM/DL (12.0-16.0); Immature Granulocytes % 2.8 %; Immature Granulocytes Absolute 0.16 #; Lymphocytes # 1.4 10*3/uL (1.4-4.0); Lymphocytes % 24.1 % (21.3-54.2); Mean Corpuscular HGB Conc 29.6 GM/DL (32-36); Mean Corpuscular Volume 103.3 FL (87-102); Mean Platelet Volume 11.8 FL (9.6-12.0); Monocytes % 9.3 % (1.7-12.7); Neutrophils % 58.6 % (38.7-73.9); Platelet Count 285 T/CUMM (130-400); Red Blood Count 3.37 MC/CUMM (3.8-5.5); Red Cell Distribution Width 20.8 % (9.3-17.3); White Blood Count 5.7 T/CUMM (4-12)
[2019-10-02 05:27] LABS: Calcium 8.7 MG/DL (8.5-10.1); Osmolality,Calculated 276.8 MOS/KG (273-304)
[2019-10-02] MEDS: PANTOPRAZOLE 40 MG TABLET PO SCH (09:55)
[2019-10-02] MEDS: GABAPENTIN 300 MG CAPSULE PO SCH ×3 (09:55→21:21)
[2019-10-02] MEDS: NYSTATIN POWDER 15 GM BOTTLE TOP SCH ×3 (09:55→21:21)
[2019-10-02] MEDS: POLYETHYLENE GLYCOL POWDER 17 GM PACK PO SCH (09:55)
[2019-10-02] MEDS: LEVOTHYROXINE 175 MCG TABLET PO SCH (09:55)
[2019-10-02] MEDS: LISINOPRIL/HCTZ 10-12.5 MG TABLET PO SCH (10:25)
[2019-10-02] MEDS: allopurinoL 300 MG TABLET PO SCH (21:21)
[2019-10-02] MEDS: ENOXAPARIN 40 MG/0.4 ML SYRINGE SUBCUT SCH (21:21)
[2019-10-03 05:12] LABS: Albumin 2.2 G/DL (3.4-5.0); Bilirubin,Direct 0.6 MG/DL (0.0-0.20); Bilirubin,Indirect 0.7 MG/DL (0.0-1.0); Bilirubin,Total 1.3 MG/DL (0.2-1.0); Total Protein 7.3 G/DL (6.4-8.3)
[2019-10-03] MEDS: GABAPENTIN 300 MG CAPSULE PO SCH ×3 (10:21→20:19)
[2019-10-03] MEDS: PANTOPRAZOLE 40 MG TABLET PO SCH (10:21)
[2019-10-03] MEDS: POLYETHYLENE GLYCOL POWDER 17 GM PACK PO SCH (10:21)
[2019-10-03] MEDS: LEVOTHYROXINE 175 MCG TABLET PO SCH (10:21)
[2019-10-03] MEDS: NYSTATIN POWDER 15 GM BOTTLE TOP SCH ×3 (10:21→20:19)
[2019-10-03] MEDS: LISINOPRIL/HCTZ 10-12.5 MG TABLET PO SCH (11:05)
[2019-10-03] MEDS: ENOXAPARIN 40 MG/0.4 ML SYRINGE SUBCUT SCH (20:19)
[2019-10-03] MEDS: allopurinoL 300 MG TABLET PO SCH (20:19)
[2019-10-03] MEDS: diphenhydrAMINE CAP 25 MG CAPSULE PO PRN (23:45)
[2019-10-04] MEDS: LEVOTHYROXINE 175 MCG TABLET PO SCH (06:00)
[2019-10-04] MEDS: GABAPENTIN 300 MG CAPSULE PO SCH ×3 (09:53→20:16)
[2019-10-04] MEDS: NYSTATIN POWDER 15 GM BOTTLE TOP SCH ×3 (09:53→20:16)
[2019-10-04] MEDS: PANTOPRAZOLE 40 MG TABLET PO SCH (09:53)
[2019-10-04] MEDS: POLYETHYLENE GLYCOL POWDER 17 GM PACK PO SCH (11:46)
[2019-10-04] MEDS: LISINOPRIL/HCTZ 10-12.5 MG TABLET PO SCH (11:47)
[2019-10-04] MEDS: ALUMINUM/MAGNES/SIMETH MAX STR 30 ML UDCUP PO PRN (18:40)
[2019-10-04] MEDS: ONDANSETRON 4 MG/2 ML VIAL IV PRN (18:40)
[2019-10-04] MEDS: ENOXAPARIN 40 MG/0.4 ML SYRINGE SUBCUT SCH (20:16)
[2019-10-04] MEDS: ACETAMINOPHEN 325 MG TABLET PO PRN (20:17)
[2019-10-04] MEDS: allopurinoL 300 MG TABLET PO SCH (20:17)
[2019-10-05] MEDS: LEVOTHYROXINE 175 MCG TABLET PO SCH (05:37)
[2019-10-05] MEDS: POLYETHYLENE GLYCOL POWDER 17 GM PACK PO SCH (08:28)
[2019-10-05] MEDS: GABAPENTIN 300 MG CAPSULE PO SCH ×3 (08:28→21:35)
[2019-10-05] MEDS: PANTOPRAZOLE 40 MG TABLET PO SCH (08:29)
[2019-10-05] MEDS: LISINOPRIL/HCTZ 10-12.5 MG TABLET PO SCH (08:29)
[2019-10-05] MEDS: NYSTATIN POWDER 15 GM BOTTLE TOP SCH ×2 (18:17→21:08)
[2019-10-05] MEDS: ALUMINUM/MAGNES/SIMETH MAX STR 30 ML UDCUP PO PRN (21:08)
[2019-10-05] MEDS: allopurinoL 300 MG TABLET PO SCH (21:08)
[2019-10-05] MEDS: ENOXAPARIN 40 MG/0.4 ML SYRINGE SUBCUT SCH (21:08)
[2019-10-05] MEDS: diphenhydrAMINE CAP 25 MG CAPSULE PO PRN (23:15)
[2019-10-06] MEDS: LEVOTHYROXINE 175 MCG TABLET PO SCH (06:19)
[2019-10-06] MEDS: NYSTATIN POWDER 15 GM BOTTLE TOP SCH ×3 (08:16→20:35)
[2019-10-06] MEDS: POLYETHYLENE GLYCOL POWDER 17 GM PACK PO SCH (08:16)
[2019-10-06] MEDS: LISINOPRIL/HCTZ 10-12.5 MG TABLET PO SCH (08:17)
[2019-10-06] MEDS: GABAPENTIN 300 MG CAPSULE PO SCH ×3 (08:17→20:35)
[2019-10-06] MEDS: ENOXAPARIN 40 MG/0.4 ML SYRINGE SUBCUT SCH (20:35)
[2019-10-06] MEDS: allopurinoL 300 MG TABLET PO SCH (20:35)
[2019-10-06] MEDS: diphenhydrAMINE CAP 25 MG CAPSULE PO PRN (22:27)
[2019-10-07] MEDS: LEVOTHYROXINE 175 MCG TABLET PO SCH (06:23)
[2019-10-07] MEDS: LISINOPRIL/HCTZ 10-12.5 MG TABLET PO SCH (09:00)
[2019-10-07] MEDS: GABAPENTIN 300 MG CAPSULE PO SCH ×3 (09:00→20:20)
[2019-10-07] MEDS: ONDANSETRON 4 MG/2 ML VIAL IV PRN (12:49)
[2019-10-07] MEDS: ALUMINUM/MAGNES/SIMETH MAX STR 30 ML UDCUP PO PRN ×2 (12:49→20:20)
[2019-10-07] MEDS: POLYETHYLENE GLYCOL POWDER 17 GM PACK PO SCH (14:35)
[2019-10-07] MEDS: NYSTATIN POWDER 15 GM BOTTLE TOP SCH ×3 (14:35→20:20)
[2019-10-07] MEDS: allopurinoL 300 MG TABLET PO SCH (20:20)
[2019-10-07] MEDS: ENOXAPARIN 40 MG/0.4 ML SYRINGE SUBCUT SCH (20:20)
[2019-10-07] MEDS: diphenhydrAMINE CAP 25 MG CAPSULE PO PRN (22:25)
[2019-10-08] MEDS: ALUMINUM/MAGNES/SIMETH MAX STR 30 ML UDCUP PO PRN ×3 (04:20→21:50)
[2019-10-08] MEDS: LEVOTHYROXINE 175 MCG TABLET PO SCH (05:38)
[2019-10-08] MEDS: GABAPENTIN 300 MG CAPSULE PO SCH ×3 (08:15→20:00)
[2019-10-08] MEDS: NYSTATIN POWDER 15 GM BOTTLE TOP SCH ×3 (08:15→20:00)
[2019-10-08] MEDS: POLYETHYLENE GLYCOL POWDER 17 GM PACK PO SCH (08:15)
[2019-10-08] MEDS: LISINOPRIL/HCTZ 10-12.5 MG TABLET PO SCH (08:16)
[2019-10-08] MEDS: allopurinoL 300 MG TABLET PO SCH (20:00)
[2019-10-08] MEDS: ENOXAPARIN 40 MG/0.4 ML SYRINGE SUBCUT SCH (20:00)
[2019-10-08] MEDS: diphenhydrAMINE CAP 25 MG CAPSULE PO PRN (21:50)
[2019-10-08] MEDS: ONDANSETRON 4 MG/2 ML VIAL IV PRN (21:50)
[2019-10-09] MEDS: LEVOTHYROXINE 175 MCG TABLET PO SCH (05:42)
[2019-10-09] MEDS: LISINOPRIL/HCTZ 10-12.5 MG TABLET PO SCH (08:05)
[2019-10-09] MEDS: POLYETHYLENE GLYCOL POWDER 17 GM PACK PO SCH (08:05)
[2019-10-09] MEDS: NYSTATIN POWDER 15 GM BOTTLE TOP SCH ×3 (08:05→21:56)
[2019-10-09] MEDS: GABAPENTIN 300 MG CAPSULE PO SCH ×3 (08:05→21:56)
[2019-10-09] MEDS: ALUMINUM/MAGNES/SIMETH MAX STR 30 ML UDCUP PO PRN ×2 (08:06→16:17)
[2019-10-09 11:08] LABS: Basophils # 0.1 10*3/uL (0.0-0.2); Eosinophils # 0.1 10*3/uL (0.0-0.87); Eosinophils % 2.7 % (0.00-10.9); Hematocrit 36.8 VOL% (35.7-47.0); Hemoglobin 11.3 GM/DL (12.0-16.0); Immature Granulocytes Absolute 0.04 #; Lymphocytes # 0.9 10*3/uL (1.4-4.0); Lymphocytes % 22.3 % (21.3-54.2); Mean Corpuscular HGB Conc 30.7 GM/DL (32-36); Mean Corpuscular Volume 102.5 FL (87-102); Mean Platelet Volume 10.8 FL (9.6-12.0); Monocytes % 10.1 % (1.7-12.7); Neutrophils % 61.9 % (38.7-73.9); Platelet Count 227 T/CUMM (130-400); Red Blood Count 3.59 MC/CUMM (3.8-5.5)
[2019-10-09 11:25] LABS: Calcium 8.7 MG/DL (8.5-10.1); Osmolality,Calculated 278.7 MOS/KG (273-304)
[2019-10-09 11:30] LABS: Band Neutrophils 1 % (0-10); Eosinophils 4 % (0-10); Hypochromasia 1+; Lymphocytes 18 % (20-55); Microcytosis Slight; Nucleated Red Blood Cells 1 (0-5); Platelet Estimate Adequate; Segmented Neutrophils 72 % (50-85); Total Cells Counted 100
[2019-10-09] MEDS: ENOXAPARIN 40 MG/0.4 ML SYRINGE SUBCUT SCH (21:56)
[2019-10-09] MEDS: allopurinoL 300 MG TABLET PO SCH (21:56)
[2019-10-09] MEDS: diphenhydrAMINE CAP 25 MG CAPSULE PO PRN (22:54)
[2019-10-10] MEDS: LEVOTHYROXINE 175 MCG TABLET PO SCH (06:46)
[2019-10-10] MEDS: ALUMINUM/MAGNES/SIMETH MAX STR 30 ML UDCUP PO PRN ×2 (06:46→17:09)
[2019-10-10] MEDS: GABAPENTIN 300 MG CAPSULE PO SCH ×3 (08:40→20:05)
[2019-10-10] MEDS: LISINOPRIL/HCTZ 10-12.5 MG TABLET PO SCH (08:40)
[2019-10-10] MEDS: NYSTATIN POWDER 15 GM BOTTLE TOP SCH ×3 (09:26→20:05)
[2019-10-10] MEDS: POLYETHYLENE GLYCOL POWDER 17 GM PACK PO SCH (09:28)
[2019-10-10] MEDS ORDERED: SKIN HEALING OINT (AQUAPHOR) 50 GM TUBE TOP PRN (10:19)
[2019-10-10] MEDS: ONDANSETRON 4 MG/2 ML VIAL IV PRN (17:09)
[2019-10-10] MEDS: ENOXAPARIN 40 MG/0.4 ML SYRINGE SUBCUT SCH (20:05)
[2019-10-10] MEDS: allopurinoL 300 MG TABLET PO SCH (20:05)
[2019-10-10] MEDS: diphenhydrAMINE CAP 25 MG CAPSULE PO PRN (23:15)
[2019-10-11] MEDS: LEVOTHYROXINE 175 MCG TABLET PO SCH (06:15)
[2019-10-11] MEDS: GABAPENTIN 300 MG CAPSULE PO SCH ×3 (08:49→20:07)
[2019-10-11] MEDS: LISINOPRIL/HCTZ 10-12.5 MG TABLET PO SCH (08:49)
[2019-10-11] MEDS: POLYETHYLENE GLYCOL POWDER 17 GM PACK PO SCH (08:50)
[2019-10-11] MEDS: NYSTATIN POWDER 15 GM BOTTLE TOP SCH ×3 (08:50→20:08)
[2019-10-11] MEDS: ONDANSETRON 4 MG/2 ML VIAL IV PRN (20:05)
[2019-10-11] MEDS: ENOXAPARIN 40 MG/0.4 ML SYRINGE SUBCUT SCH (20:05)
[2019-10-11] MEDS: ALUMINUM/MAGNES/SIMETH MAX STR 30 ML UDCUP PO PRN (20:07)
[2019-10-11] MEDS: allopurinoL 300 MG TABLET PO SCH (20:07)
[2019-10-11] MEDS: diphenhydrAMINE CAP 25 MG CAPSULE PO PRN (22:50)
[2019-10-12] MEDS: LEVOTHYROXINE 175 MCG TABLET PO SCH (05:00)
[2019-10-12] MEDS: POLYETHYLENE GLYCOL POWDER 17 GM PACK PO SCH (08:25)
[2019-10-12] MEDS: LISINOPRIL/HCTZ 10-12.5 MG TABLET PO SCH (08:35)
[2019-10-12] MEDS: GABAPENTIN 300 MG CAPSULE PO SCH ×3 (08:35→20:07)
[2019-10-12] MEDS: NYSTATIN POWDER 15 GM BOTTLE TOP SCH ×3 (08:36→20:07)
[2019-10-12] MEDS: ENOXAPARIN 40 MG/0.4 ML SYRINGE SUBCUT SCH (20:07)
[2019-10-12] MEDS: allopurinoL 300 MG TABLET PO SCH (20:07)
[2019-10-12] MEDS: diphenhydrAMINE CAP 25 MG CAPSULE PO PRN (21:00)
[2019-10-12] MEDS: ONDANSETRON 4 MG/2 ML VIAL IV PRN (22:29)
[2019-10-13] MEDS: LEVOTHYROXINE 175 MCG TABLET PO SCH (05:44)
[2019-10-13 06:44] LABS: Basophils # 0.1 10*3/uL (0.0-0.2); Eosinophils # 0.2 10*3/uL (0.0-0.87); Eosinophils % 5.4 % (0.00-10.9); Hematocrit 37.9 VOL% (35.7-47.0); Hemoglobin 11.5 GM/DL (12.0-16.0); Immature Granulocytes Absolute 0.04 #; Lymphocytes % 23.3 % (21.3-54.2); Mean Corpuscular HGB Conc 30.3 GM/DL (32-36); Mean Corpuscular Volume 101.1 FL (87-102); Mean Platelet Volume 10.8 FL (9.6-12.0); Monocytes % 10.6 % (1.7-12.7); Neutrophils % 57.7 % (38.7-73.9); Platelet Count 236 T/CUMM (130-400); Red Blood Count 3.75 MC/CUMM (3.8-5.5); White Blood Count 4.1 T/CUMM (4-12)
[2019-10-13 07:04] LABS: Calcium 9.4 MG/DL (8.5-10.1)
[2019-10-13 07:32] LABS: Eosinophils 3 % (0-10); Hypochromasia 1+; Lymphocytes 25 % (20-55); Platelet Estimate Adequate; Segmented Neutrophils 61 % (50-85); Total Cells Counted 100
[2019-10-13 07:33] LABS: Microcytosis Slight
[2019-10-13] MEDS: GABAPENTIN 300 MG CAPSULE PO SCH ×3 (09:54→20:34)
[2019-10-13] MEDS: LISINOPRIL/HCTZ 10-12.5 MG TABLET PO SCH (09:54)
[2019-10-13] MEDS: NYSTATIN POWDER 15 GM BOTTLE TOP SCH ×3 (09:55→20:35)
[2019-10-13] MEDS: POLYETHYLENE GLYCOL POWDER 17 GM PACK PO SCH (09:55)
[2019-10-13] MEDS: ALUMINUM/MAGNES/SIMETH MAX STR 30 ML UDCUP PO PRN (15:39)
[2019-10-13] MEDS: ENOXAPARIN 40 MG/0.4 ML SYRINGE SUBCUT SCH (20:34)
[2019-10-13] MEDS: allopurinoL 300 MG TABLET PO SCH (20:35)
[2019-10-13] MEDS: diphenhydrAMINE CAP 25 MG CAPSULE PO PRN (22:20)
[2019-10-14] MEDS: LEVOTHYROXINE 175 MCG TABLET PO SCH (06:04)
[2019-10-14] MEDS: GABAPENTIN 300 MG CAPSULE PO SCH ×3 (09:31→20:10)
[2019-10-14] MEDS: LISINOPRIL/HCTZ 10-12.5 MG TABLET PO SCH (09:31)
[2019-10-14] MEDS: NYSTATIN POWDER 15 GM BOTTLE TOP SCH ×3 (09:32→20:10)
[2019-10-14] MEDS: POLYETHYLENE GLYCOL POWDER 17 GM PACK PO SCH (09:32)
[2019-10-14] MEDS: allopurinoL 300 MG TABLET PO SCH (20:10)
[2019-10-14] MEDS: ENOXAPARIN 40 MG/0.4 ML SYRINGE SUBCUT SCH (20:10)
[2019-10-15] MEDS: LEVOTHYROXINE 175 MCG TABLET PO SCH (06:22)
[2019-10-15] MEDS: POLYETHYLENE GLYCOL POWDER 17 GM PACK PO SCH (10:17)
[2019-10-15] MEDS: LISINOPRIL/HCTZ 10-12.5 MG TABLET PO SCH (10:19)
[2019-10-15] MEDS: GABAPENTIN 300 MG CAPSULE PO SCH ×3 (10:19→21:06)
[2019-10-15] MEDS: NYSTATIN POWDER 15 GM BOTTLE TOP SCH ×3 (10:21→21:06)
[2019-10-15] MEDS: ENOXAPARIN 40 MG/0.4 ML SYRINGE SUBCUT SCH (21:06)
[2019-10-15] MEDS: ONDANSETRON 4 MG/2 ML VIAL IV PRN (21:07)
[2019-10-15] MEDS: allopurinoL 300 MG TABLET PO SCH (21:07)
[2019-10-15] MEDS: diphenhydrAMINE CAP 25 MG CAPSULE PO PRN (23:25)
[2019-10-16] MEDS: LEVOTHYROXINE 175 MCG TABLET PO SCH (06:20)
[2019-10-16] MEDS: POLYETHYLENE GLYCOL POWDER 17 GM PACK PO SCH (08:52)
[2019-10-16 09:14] LABS: Basophils # 0.1 10*3/uL (0.0-0.2); Eosinophils # 0.3 10*3/uL (0.0-0.87); Eosinophils % 5.5 % (0.00-10.9); Hematocrit 39.6 VOL% (35.7-47.0); Hemoglobin 12.1 GM/DL (12.0-16.0); Immature Granulocytes % 1.3 %; Immature Granulocytes Absolute 0.06 #; Lymphocytes % 21.7 % (21.3-54.2); Mean Corpuscular HGB Conc 30.6 GM/DL (32-36); Mean Corpuscular Volume 100.8 FL (87-102); Mean Platelet Volume 10.3 FL (9.6-12.0); Monocytes % 10.8 % (1.7-12.7); Neutrophils % 58.7 % (38.7-73.9); Platelet Count 247 T/CUMM (130-400); Red Blood Count 3.93 MC/CUMM (3.8-5.5); Red Cell Distribution Width 17.2 % (9.3-17.3); White Blood Count 4.5 T/CUMM (4-12)
[2019-10-16] MEDS: GABAPENTIN 300 MG CAPSULE PO SCH ×3 (10:05→20:43)
[2019-10-16] MEDS: LISINOPRIL/HCTZ 10-12.5 MG TABLET PO SCH (10:05)
[2019-10-16] MEDS: NYSTATIN POWDER 15 GM BOTTLE TOP SCH ×3 (10:07→20:43)
[2019-10-16] MEDS: ONDANSETRON 4 MG/2 ML VIAL IV PRN (18:19)
[2019-10-16] MEDS: NICOTINE 14 MG/24 HR PATCH TRANSDERM SCH (20:43)
[2019-10-16] MEDS: allopurinoL 300 MG TABLET PO SCH (20:43)
[2019-10-16] MEDS: ENOXAPARIN 40 MG/0.4 ML SYRINGE SUBCUT SCH (20:43)
[2019-10-16] MEDS: diphenhydrAMINE CAP 25 MG CAPSULE PO PRN (23:32)
[2019-10-17] MEDS: LEVOTHYROXINE 175 MCG TABLET PO SCH (05:59)
[2019-10-17] MEDS: POLYETHYLENE GLYCOL POWDER 17 GM PACK PO SCH (10:39)
[2019-10-17] MEDS: LISINOPRIL/HCTZ 10-12.5 MG TABLET PO SCH (10:40)
[2019-10-17] MEDS: NICOTINE 14 MG/24 HR PATCH TRANSDERM SCH (10:40)
[2019-10-17] MEDS: GABAPENTIN 300 MG CAPSULE PO SCH ×3 (10:40→20:07)
[2019-10-17] MEDS: NYSTATIN POWDER 15 GM BOTTLE TOP SCH ×3 (10:41→20:09)
[2019-10-17] MEDS: allopurinoL 300 MG TABLET PO SCH (20:07)
[2019-10-17] MEDS: ENOXAPARIN 40 MG/0.4 ML SYRINGE SUBCUT SCH (20:07)
[2019-10-17] MEDS: ALUMINUM/MAGNES/SIMETH MAX STR 30 ML UDCUP PO PRN (22:19)
[2019-10-17] MEDS: diphenhydrAMINE CAP 25 MG CAPSULE PO PRN (22:19)
[2019-10-18] MEDS: LEVOTHYROXINE 175 MCG TABLET PO SCH (05:43)
[2019-10-18] MEDS: POLYETHYLENE GLYCOL POWDER 17 GM PACK PO SCH (09:34)
[2019-10-18] MEDS: GABAPENTIN 300 MG CAPSULE PO SCH ×3 (10:44→20:47)
[2019-10-18] MEDS: LISINOPRIL/HCTZ 10-12.5 MG TABLET PO SCH (10:44)
[2019-10-18] MEDS: NICOTINE 14 MG/24 HR PATCH TRANSDERM SCH (10:45)
[2019-10-18] MEDS: NYSTATIN POWDER 15 GM BOTTLE TOP SCH ×3 (10:45→20:47)
[2019-10-18] MEDS: allopurinoL 300 MG TABLET PO SCH (20:47)
[2019-10-18] MEDS: ENOXAPARIN 40 MG/0.4 ML SYRINGE SUBCUT SCH (20:47)
[2019-10-18] MEDS: diphenhydrAMINE CAP 25 MG CAPSULE PO PRN (21:57)
[2019-10-18] MEDS: ALUMINUM/MAGNES/SIMETH MAX STR 30 ML UDCUP PO PRN (21:58)
[2019-10-19] MEDS: LEVOTHYROXINE 175 MCG TABLET PO SCH (05:52)
[2019-10-19] MEDS: GABAPENTIN 300 MG CAPSULE PO SCH ×3 (10:12→20:10)
[2019-10-19] MEDS: NYSTATIN POWDER 15 GM BOTTLE TOP SCH ×3 (10:12→20:10)
[2019-10-19] MEDS: ALUMINUM/MAGNES/SIMETH MAX STR 30 ML UDCUP PO PRN (10:12)
[2019-10-19] MEDS: LISINOPRIL/HCTZ 10-12.5 MG TABLET PO SCH (10:12)
[2019-10-19] MEDS: POLYETHYLENE GLYCOL POWDER 17 GM PACK PO SCH (10:12)
[2019-10-19] MEDS: NICOTINE 14 MG/24 HR PATCH TRANSDERM SCH (10:24)
[2019-10-19] MEDS: allopurinoL 300 MG TABLET PO SCH (20:10)
[2019-10-19] MEDS: ENOXAPARIN 40 MG/0.4 ML SYRINGE SUBCUT SCH (20:11)
[2019-10-19] MEDS: diphenhydrAMINE CAP 25 MG CAPSULE PO PRN (22:13)
[2019-10-20] MEDS: LEVOTHYROXINE 175 MCG TABLET PO SCH (06:37)
[2019-10-20] MEDS: GABAPENTIN 300 MG CAPSULE PO SCH ×3 (10:09→21:07)
[2019-10-20] MEDS: NICOTINE 14 MG/24 HR PATCH TRANSDERM SCH (10:09)
[2019-10-20] MEDS: POLYETHYLENE GLYCOL POWDER 17 GM PACK PO SCH (10:09)
[2019-10-20] MEDS: LISINOPRIL/HCTZ 10-12.5 MG TABLET PO SCH (10:09)
[2019-10-20] MEDS: NYSTATIN POWDER 15 GM BOTTLE TOP SCH ×3 (10:10→21:07)
[2019-10-20] MEDS: allopurinoL 300 MG TABLET PO SCH (21:07)
[2019-10-20] MEDS: ENOXAPARIN 40 MG/0.4 ML SYRINGE SUBCUT SCH (21:07)
[2019-10-20] MEDS: diphenhydrAMINE CAP 25 MG CAPSULE PO PRN (21:07)
[2019-10-21] MEDS: LEVOTHYROXINE 175 MCG TABLET PO SCH (06:00)
[2019-10-21] MEDS: NICOTINE 14 MG/24 HR PATCH TRANSDERM SCH (10:58)
[2019-10-21] MEDS: GABAPENTIN 300 MG CAPSULE PO SCH ×3 (10:58→21:26)
[2019-10-21] MEDS: LISINOPRIL/HCTZ 10-12.5 MG TABLET PO SCH (10:59)
[2019-10-21] MEDS: NYSTATIN POWDER 15 GM BOTTLE TOP SCH ×3 (10:59→21:26)
[2019-10-21] MEDS: POLYETHYLENE GLYCOL POWDER 17 GM PACK PO SCH (11:00)
[2019-10-21] MEDS: allopurinoL 300 MG TABLET PO SCH (21:24)
[2019-10-21] MEDS: ENOXAPARIN 40 MG/0.4 ML SYRINGE SUBCUT SCH (21:26)
[2019-10-21] MEDS: diphenhydrAMINE CAP 25 MG CAPSULE PO PRN (23:16)
[2019-10-22] MEDS: LEVOTHYROXINE 175 MCG TABLET PO SCH (05:44)
[2019-10-22] MEDS: GABAPENTIN 300 MG CAPSULE PO SCH ×3 (10:06→21:35)
[2019-10-22] MEDS: LISINOPRIL/HCTZ 10-12.5 MG TABLET PO SCH (10:06)
[2019-10-22] MEDS: NICOTINE 14 MG/24 HR PATCH TRANSDERM SCH (10:07)
[2019-10-22] MEDS: NYSTATIN POWDER 15 GM BOTTLE TOP SCH ×3 (10:07→21:35)
[2019-10-22] MEDS: POLYETHYLENE GLYCOL POWDER 17 GM PACK PO SCH (10:11)
[2019-10-22] MEDS: allopurinoL 300 MG TABLET PO SCH (21:35)
[2019-10-22] MEDS: ENOXAPARIN 40 MG/0.4 ML SYRINGE SUBCUT SCH (21:35)
[2019-10-22] MEDS: diphenhydrAMINE CAP 25 MG CAPSULE PO PRN (23:18)
[2019-10-23] MEDS: GABAPENTIN 300 MG CAPSULE PO SCH ×3 (08:52→20:23)
[2019-10-23] MEDS: LISINOPRIL/HCTZ 10-12.5 MG TABLET PO SCH (08:52)
[2019-10-23] MEDS: NICOTINE 14 MG/24 HR PATCH TRANSDERM SCH (08:53)
[2019-10-23] MEDS: NYSTATIN POWDER 15 GM BOTTLE TOP SCH ×3 (08:54→21:00)
[2019-10-23] MEDS: POLYETHYLENE GLYCOL POWDER 17 GM PACK PO SCH (08:55)
[2019-10-23] MEDS: LEVOTHYROXINE 175 MCG TABLET PO SCH (10:08)
[2019-10-23] MEDS: allopurinoL 300 MG TABLET PO SCH (20:23)
[2019-10-23] MEDS: diphenhydrAMINE CAP 25 MG CAPSULE PO PRN (20:23)
[2019-10-23] MEDS: ENOXAPARIN 40 MG/0.4 ML SYRINGE SUBCUT SCH (20:24)
[2019-10-24] MEDS: ONDANSETRON 4 MG/2 ML VIAL IV PRN (00:39)
[2019-10-24] MEDS: LEVOTHYROXINE 175 MCG TABLET PO SCH (05:59)
[2019-10-24 07:05] LABS: Basophils # 0.1 10*3/uL (0.0-0.2); Eosinophils # 0.2 10*3/uL (0.0-0.87); Eosinophils % 5.3 % (0.00-10.9); Hematocrit 37.8 VOL% (35.7-47.0); Hemoglobin 11.7 GM/DL (12.0-16.0); Immature Granulocytes % 0.8 %; Immature Granulocytes Absolute 0.03 #; Lymphocytes % 24.7 % (21.3-54.2); Mean Corpuscular Volume 100.3 FL (87-102); Mean Platelet Volume 10.5 FL (9.6-12.0); Monocytes % 9.1 % (1.7-12.7); Neutrophils % 58.1 % (38.7-73.9); Platelet Count 240 T/CUMM (130-400); Red Blood Count 3.77 MC/CUMM (3.8-5.5)
[2019-10-24 08:16] LABS: Band Neutrophils 11 % (0-10); Eosinophils 7 % (0-10); Lymphocytes 19 % (20-55); Platelet Estimate Normal; Segmented Neutrophils 48 % (50-85); Total Cells Counted 100
[2019-10-24 08:17] LABS: Anisocytosis 1+; Macrocytosis 1+
[2019-10-24] MEDS: LISINOPRIL/HCTZ 10-12.5 MG TABLET PO SCH (08:54)
[2019-10-24] MEDS: POLYETHYLENE GLYCOL POWDER 17 GM PACK PO SCH (08:54)
[2019-10-24] MEDS: GABAPENTIN 300 MG CAPSULE PO SCH ×3 (08:54→20:20)
[2019-10-24] MEDS: NICOTINE 14 MG/24 HR PATCH TRANSDERM SCH (08:54)
[2019-10-24] MEDS: NYSTATIN POWDER 15 GM BOTTLE TOP SCH ×3 (08:55→20:21)
[2019-10-24] MEDS: allopurinoL 300 MG TABLET PO SCH (20:20)
[2019-10-24] MEDS: ENOXAPARIN 40 MG/0.4 ML SYRINGE SUBCUT SCH (20:21)
[2019-10-24] MEDS: diphenhydrAMINE CAP 25 MG CAPSULE PO PRN (20:21)
[2019-10-25] MEDS: ALUMINUM/MAGNES/SIMETH MAX STR 30 ML UDCUP PO PRN (01:43)
[2019-10-25] MEDS: LEVOTHYROXINE 175 MCG TABLET PO SCH (06:25)
[2019-10-25] MEDS: LISINOPRIL/HCTZ 10-12.5 MG TABLET PO SCH (10:33)
[2019-10-25] MEDS: NICOTINE 14 MG/24 HR PATCH TRANSDERM SCH (10:34)
[2019-10-25] MEDS: POLYETHYLENE GLYCOL POWDER 17 GM PACK PO SCH (10:34)
[2019-10-25] MEDS: NYSTATIN POWDER 15 GM BOTTLE TOP SCH ×3 (10:34→22:20)
[2019-10-25] MEDS: GABAPENTIN 300 MG CAPSULE PO SCH ×3 (10:34→22:19)
[2019-10-25] MEDS: ONDANSETRON 4 MG/2 ML VIAL IV PRN (18:41)
[2019-10-25] MEDS: allopurinoL 300 MG TABLET PO SCH (22:19)
[2019-10-25] MEDS: diphenhydrAMINE CAP 25 MG CAPSULE PO PRN (22:19)
[2019-10-25] MEDS: ENOXAPARIN 40 MG/0.4 ML SYRINGE SUBCUT SCH (22:19)
[2019-10-26] MEDS: LEVOTHYROXINE 175 MCG TABLET PO SCH (05:31)
[2019-10-26] MEDS: POLYETHYLENE GLYCOL POWDER 17 GM PACK PO SCH (09:36)
[2019-10-26] MEDS: GABAPENTIN 300 MG CAPSULE PO SCH ×3 (09:36→20:05)
[2019-10-26] MEDS: NICOTINE 14 MG/24 HR PATCH TRANSDERM SCH (09:37)
[2019-10-26] MEDS: NYSTATIN POWDER 15 GM BOTTLE TOP SCH ×3 (09:38→20:05)
[2019-10-26] MEDS: LISINOPRIL/HCTZ 10-12.5 MG TABLET PO SCH (09:38)
[2019-10-26] MEDS: ENOXAPARIN 40 MG/0.4 ML SYRINGE SUBCUT SCH (20:05)
[2019-10-26] MEDS: allopurinoL 300 MG TABLET PO SCH (20:05)
[2019-10-26] MEDS: diphenhydrAMINE CAP 25 MG CAPSULE PO PRN (22:03)
[2019-10-27] MEDS: LEVOTHYROXINE 175 MCG TABLET PO SCH (05:59)
[2019-10-27] MEDS: LISINOPRIL/HCTZ 10-12.5 MG TABLET PO SCH (08:13)
[2019-10-27] MEDS: GABAPENTIN 300 MG CAPSULE PO SCH ×3 (08:13→20:54)
[2019-10-27] MEDS: NICOTINE 14 MG/24 HR PATCH TRANSDERM SCH (08:14)
[2019-10-27] MEDS: NYSTATIN POWDER 15 GM BOTTLE TOP SCH ×3 (08:16→20:54)
[2019-10-27] MEDS: POLYETHYLENE GLYCOL POWDER 17 GM PACK PO SCH (08:16)
[2019-10-27 10:17] LABS: Calcium 9.4 MG/DL (8.5-10.1)
[2019-10-27] MEDS: ENOXAPARIN 40 MG/0.4 ML SYRINGE SUBCUT SCH (20:54)
[2019-10-27] MEDS: allopurinoL 300 MG TABLET PO SCH (20:54)
[2019-10-27] MEDS: diphenhydrAMINE CAP 25 MG CAPSULE PO PRN (21:56)
[2019-10-27] MEDS: ALUMINUM/MAGNES/SIMETH MAX STR 30 ML UDCUP PO PRN (23:34)
[2019-10-28] MEDS: ALUMINUM/MAGNES/SIMETH MAX STR 30 ML UDCUP PO PRN ×2 (05:27→18:41)
[2019-10-28] MEDS: ONDANSETRON 4 MG/2 ML VIAL IV PRN (05:27)
[2019-10-28] MEDS: LEVOTHYROXINE 175 MCG TABLET PO SCH (05:31)
[2019-10-28] MEDS: GABAPENTIN 300 MG CAPSULE PO SCH ×3 (10:31→21:36)
[2019-10-28] MEDS: LISINOPRIL/HCTZ 10-12.5 MG TABLET PO SCH (10:31)
[2019-10-28] MEDS: NYSTATIN POWDER 15 GM BOTTLE TOP SCH ×3 (10:31→21:38)
[2019-10-28] MEDS: NICOTINE 14 MG/24 HR PATCH TRANSDERM SCH (10:31)
[2019-10-28] MEDS: POLYETHYLENE GLYCOL POWDER 17 GM PACK PO SCH (11:14)
[2019-10-28] MEDS: MULTIVITAMIN (CENTRUM) TABLET PO SCH (15:26)
[2019-10-28] MEDS: diphenhydrAMINE CAP 25 MG CAPSULE PO PRN (21:35)
[2019-10-28] MEDS: ENOXAPARIN 40 MG/0.4 ML SYRINGE SUBCUT SCH (21:36)
[2019-10-28] MEDS: allopurinoL 300 MG TABLET PO SCH (21:37)
[2019-10-29] MEDS: LEVOTHYROXINE 175 MCG TABLET PO SCH (06:17)
[2019-10-29] MEDS: NYSTATIN POWDER 15 GM BOTTLE TOP SCH ×3 (09:07→20:11)
[2019-10-29] MEDS: POLYETHYLENE GLYCOL POWDER 17 GM PACK PO SCH (09:07)
[2019-10-29] MEDS: GABAPENTIN 300 MG CAPSULE PO SCH ×3 (09:07→20:10)
[2019-10-29] MEDS: LISINOPRIL/HCTZ 10-12.5 MG TABLET PO SCH (09:07)
[2019-10-29] MEDS: MULTIVITAMIN (CENTRUM) TABLET PO SCH (09:07)
[2019-10-29] MEDS: NICOTINE 14 MG/24 HR PATCH TRANSDERM SCH (09:07)
[2019-10-29] MEDS: diphenhydrAMINE CAP 25 MG CAPSULE PO PRN ×2 (20:10→23:44)
[2019-10-29] MEDS: ENOXAPARIN 40 MG/0.4 ML SYRINGE SUBCUT SCH (20:10)
[2019-10-29] MEDS: allopurinoL 300 MG TABLET PO SCH (20:10)
[2019-10-30] MEDS: LEVOTHYROXINE 175 MCG TABLET PO SCH (05:47)
[2019-10-30] MEDS: MULTIVITAMIN (CENTRUM) TABLET PO SCH (10:32)
[2019-10-30] MEDS: LISINOPRIL/HCTZ 10-12.5 MG TABLET PO SCH (10:32)
[2019-10-30] MEDS: GABAPENTIN 300 MG CAPSULE PO SCH ×3 (10:32→21:31)
[2019-10-30] MEDS: NICOTINE 14 MG/24 HR PATCH TRANSDERM SCH (10:32)
[2019-10-30] MEDS: NYSTATIN POWDER 15 GM BOTTLE TOP SCH ×3 (10:33→21:31)
[2019-10-30] MEDS: POLYETHYLENE GLYCOL POWDER 17 GM PACK PO SCH (10:34)
[2019-10-30] MEDS: ENOXAPARIN 40 MG/0.4 ML SYRINGE SUBCUT SCH (21:31)
[2019-10-30] MEDS: allopurinoL 300 MG TABLET PO SCH (21:31)
[2019-10-30] MEDS: diphenhydrAMINE CAP 25 MG CAPSULE PO PRN (21:31)
[2019-10-31] MEDS: LEVOTHYROXINE 175 MCG TABLET PO SCH (06:18)
[2019-10-31] MEDS: GABAPENTIN 300 MG CAPSULE PO SCH ×3 (08:16→20:57)
[2019-10-31] MEDS: POLYETHYLENE GLYCOL POWDER 17 GM PACK PO SCH (08:16)
[2019-10-31] MEDS: MULTIVITAMIN (CENTRUM) TABLET PO SCH (08:16)
[2019-10-31] MEDS: LISINOPRIL/HCTZ 10-12.5 MG TABLET PO SCH (08:17)
[2019-10-31] MEDS: NICOTINE 14 MG/24 HR PATCH TRANSDERM SCH (10:01)
[2019-10-31] MEDS: NYSTATIN POWDER 15 GM BOTTLE TOP SCH ×3 (10:06→20:56)
[2019-10-31] MEDS: ENOXAPARIN 40 MG/0.4 ML SYRINGE SUBCUT SCH (20:57)
[2019-10-31] MEDS: allopurinoL 300 MG TABLET PO SCH (20:57)
[2019-10-31] MEDS: diphenhydrAMINE CAP 25 MG CAPSULE PO PRN (22:31)
[2019-11-01] MEDS: LEVOTHYROXINE 175 MCG TABLET PO SCH (05:35)
[2019-11-01] MEDS: MULTIVITAMIN (CENTRUM) TABLET PO SCH (09:12)
[2019-11-01] MEDS: NYSTATIN POWDER 15 GM BOTTLE TOP SCH ×3 (09:13→21:16)
[2019-11-01] MEDS: LISINOPRIL/HCTZ 10-12.5 MG TABLET PO SCH (09:13)
[2019-11-01] MEDS: GABAPENTIN 300 MG CAPSULE PO SCH ×3 (09:13→21:17)
[2019-11-01] MEDS: POLYETHYLENE GLYCOL POWDER 17 GM PACK PO SCH (09:13)
[2019-11-01] MEDS: NICOTINE 14 MG/24 HR PATCH TRANSDERM SCH (09:13)
[2019-11-01] MEDS: ALUMINUM/MAGNES/SIMETH MAX STR 30 ML UDCUP PO PRN (15:12)
[2019-11-01] MEDS: ONDANSETRON 4 MG/2 ML VIAL IV PRN (15:16)
[2019-11-01] MEDS: diphenhydrAMINE CAP 25 MG CAPSULE PO PRN (21:16)
[2019-11-01] MEDS: ENOXAPARIN 40 MG/0.4 ML SYRINGE SUBCUT SCH (21:16)
[2019-11-01] MEDS: allopurinoL 300 MG TABLET PO SCH (21:17)
[2019-11-02] MEDS: ONDANSETRON 4 MG/2 ML VIAL IV PRN (01:02)
[2019-11-02] MEDS: LEVOTHYROXINE 175 MCG TABLET PO SCH (05:47)
[2019-11-02] MEDS: MULTIVITAMIN (CENTRUM) TABLET PO SCH (08:38)
[2019-11-02] MEDS: NYSTATIN POWDER 15 GM BOTTLE TOP SCH ×3 (08:38→21:54)
[2019-11-02] MEDS: POLYETHYLENE GLYCOL POWDER 17 GM PACK PO SCH (08:38)
[2019-11-02] MEDS: NICOTINE 14 MG/24 HR PATCH TRANSDERM SCH (08:39)
[2019-11-02] MEDS: GABAPENTIN 300 MG CAPSULE PO SCH ×3 (08:39→21:53)
[2019-11-02] MEDS: LISINOPRIL/HCTZ 10-12.5 MG TABLET PO SCH (08:39)
[2019-11-02] MEDS: ENOXAPARIN 40 MG/0.4 ML SYRINGE SUBCUT SCH (21:53)
[2019-11-02] MEDS: diphenhydrAMINE CAP 25 MG CAPSULE PO PRN (21:54)
[2019-11-02] MEDS: allopurinoL 300 MG TABLET PO SCH (21:54)
[2019-11-03 05:44] LABS: Basophils # 0.1 10*3/uL (0.0-0.2); Basophils % 2.2 % (0.0-0.8); Eosinophils # 0.2 10*3/uL (0.0-0.87); Eosinophils % 5.7 % (0.00-10.9); Hematocrit 38.9 VOL% (35.7-47.0); Hemoglobin 12.2 GM/DL (12.0-16.0); Immature Granulocytes % 0.5 %; Immature Granulocytes Absolute 0.02 #; Lymphocytes # 1.4 10*3/uL (1.4-4.0); Lymphocytes % 33.7 % (21.3-54.2); Mean Corpuscular HGB Conc 31.4 GM/DL (32-36); Mean Corpuscular Volume 99.5 FL (87-102); Mean Platelet Volume 10.9 FL (9.6-12.0); Monocytes % 9.8 % (1.7-12.7); Neutrophils % 48.1 % (38.7-73.9); Platelet Count 219 T/CUMM (130-400); Red Blood Count 3.91 MC/CUMM (3.8-5.5); Red Cell Distribution Width 14.8 % (9.3-17.3); White Blood Count 4.1 T/CUMM (4-12)
[2019-11-03] MEDS: LEVOTHYROXINE 175 MCG TABLET PO SCH (05:59)
[2019-11-03 06:20] LABS: Band Neutrophils 2 % (0-10); Eosinophils 5 % (0-10); Hypochromasia 2+; Lymphocytes 29 % (20-55); Nucleated Red Blood Cells 1 (0-5); Platelet Estimate Normal; Segmented Neutrophils 52 % (50-85); Total Cells Counted 100
[2019-11-03] MEDS: NICOTINE 14 MG/24 HR PATCH TRANSDERM SCH (10:15)
[2019-11-03] MEDS: MULTIVITAMIN (CENTRUM) TABLET PO SCH (10:15)
[2019-11-03] MEDS: GABAPENTIN 300 MG CAPSULE PO SCH ×3 (10:15→22:27)
[2019-11-03] MEDS: NYSTATIN POWDER 15 GM BOTTLE TOP SCH ×3 (10:15→22:27)
[2019-11-03] MEDS: POLYETHYLENE GLYCOL POWDER 17 GM PACK PO SCH (10:29)
[2019-11-03] MEDS: LISINOPRIL/HCTZ 10-12.5 MG TABLET PO SCH (10:30)
[2019-11-03] MEDS: diphenhydrAMINE CAP 25 MG CAPSULE PO PRN (22:26)
[2019-11-03] MEDS: ENOXAPARIN 40 MG/0.4 ML SYRINGE SUBCUT SCH (22:27)
[2019-11-03] MEDS: allopurinoL 300 MG TABLET PO SCH (22:27)
[2019-11-04] MEDS: LEVOTHYROXINE 175 MCG TABLET PO SCH (05:57)
[2019-11-04] MEDS: POLYETHYLENE GLYCOL POWDER 17 GM PACK PO SCH (09:55)
[2019-11-04] MEDS: NICOTINE 14 MG/24 HR PATCH TRANSDERM SCH (09:55)
[2019-11-04] MEDS: MULTIVITAMIN (CENTRUM) TABLET PO SCH (09:56)
[2019-11-04] MEDS: LISINOPRIL/HCTZ 10-12.5 MG TABLET PO SCH (09:56)
[2019-11-04] MEDS: NYSTATIN POWDER 15 GM BOTTLE TOP SCH ×3 (10:00→20:22)
[2019-11-04] MEDS: GABAPENTIN 300 MG CAPSULE PO SCH ×3 (10:00→20:21)
[2019-11-04] MEDS: allopurinoL 300 MG TABLET PO SCH (20:21)
[2019-11-04] MEDS: ENOXAPARIN 40 MG/0.4 ML SYRINGE SUBCUT SCH (20:21)
[2019-11-04] MEDS: diphenhydrAMINE CAP 25 MG CAPSULE PO PRN (22:30)
[2019-11-05] MEDS: LEVOTHYROXINE 175 MCG TABLET PO SCH (05:38)
[2019-11-05] MEDS: LISINOPRIL/HCTZ 10-12.5 MG TABLET PO SCH (08:43)
[2019-11-05] MEDS: POLYETHYLENE GLYCOL POWDER 17 GM PACK PO SCH (08:43)
[2019-11-05] MEDS: MULTIVITAMIN (CENTRUM) TABLET PO SCH (08:43)
[2019-11-05] MEDS: GABAPENTIN 300 MG CAPSULE PO SCH ×3 (08:43→22:21)
[2019-11-05] MEDS: NYSTATIN POWDER 15 GM BOTTLE TOP SCH ×3 (08:44→22:21)
[2019-11-05] MEDS: NICOTINE 14 MG/24 HR PATCH TRANSDERM SCH (08:49)
[2019-11-05] MEDS: allopurinoL 300 MG TABLET PO SCH (22:21)
[2019-11-05] MEDS: ENOXAPARIN 40 MG/0.4 ML SYRINGE SUBCUT SCH (22:21)
[2019-11-05] MEDS: ALUMINUM/MAGNES/SIMETH MAX STR 30 ML UDCUP PO PRN (22:21)
[2019-11-05] MEDS: ONDANSETRON 4 MG/2 ML VIAL IV PRN (22:22)
[2019-11-06] MEDS: LEVOTHYROXINE 175 MCG TABLET PO SCH (06:19)
[2019-11-06] MEDS: NICOTINE 14 MG/24 HR PATCH TRANSDERM SCH (08:38)
[2019-11-06] MEDS: GABAPENTIN 300 MG CAPSULE PO SCH ×3 (08:40→20:16)
[2019-11-06] MEDS: LISINOPRIL/HCTZ 10-12.5 MG TABLET PO SCH (08:40)
[2019-11-06] MEDS: POLYETHYLENE GLYCOL POWDER 17 GM PACK PO SCH (08:40)
[2019-11-06] MEDS: MULTIVITAMIN (CENTRUM) TABLET PO SCH (08:40)
[2019-11-06] MEDS: NYSTATIN POWDER 15 GM BOTTLE TOP SCH ×3 (09:53→20:17)
[2019-11-06] MEDS: ALUMINUM/MAGNES/SIMETH MAX STR 30 ML UDCUP PO PRN ×2 (15:16→21:37)
[2019-11-06] MEDS: ENOXAPARIN 40 MG/0.4 ML SYRINGE SUBCUT SCH (20:16)
[2019-11-06] MEDS: allopurinoL 300 MG TABLET PO SCH (20:16)
[2019-11-06] MEDS: diphenhydrAMINE CAP 25 MG CAPSULE PO PRN (21:36)
[2019-11-07] MEDS: LEVOTHYROXINE 175 MCG TABLET PO SCH (05:45)
[2019-11-07] MEDS: MULTIVITAMIN (CENTRUM) TABLET PO SCH (08:46)
[2019-11-07] MEDS: LISINOPRIL/HCTZ 10-12.5 MG TABLET PO SCH (08:46)
[2019-11-07] MEDS: NYSTATIN POWDER 15 GM BOTTLE TOP SCH ×3 (08:48→20:50)
[2019-11-07] MEDS: NICOTINE 14 MG/24 HR PATCH TRANSDERM SCH (08:49)
[2019-11-07] MEDS: POLYETHYLENE GLYCOL POWDER 17 GM PACK PO SCH (08:50)
[2019-11-07] MEDS: GABAPENTIN 300 MG CAPSULE PO SCH ×3 (08:52→20:49)
[2019-11-07] MEDS: diphenhydrAMINE CAP 25 MG CAPSULE PO PRN (20:49)
[2019-11-07] MEDS: allopurinoL 300 MG TABLET PO SCH (20:49)
[2019-11-07] MEDS: ENOXAPARIN 40 MG/0.4 ML SYRINGE SUBCUT SCH (20:50)
[2019-11-08] MEDS: LEVOTHYROXINE 175 MCG TABLET PO SCH (06:10)
[2019-11-08] MEDS: GABAPENTIN 300 MG CAPSULE PO SCH ×3 (08:33→21:48)
[2019-11-08] MEDS: MULTIVITAMIN (CENTRUM) TABLET PO SCH (08:33)
[2019-11-08] MEDS: LISINOPRIL/HCTZ 10-12.5 MG TABLET PO SCH (08:33)
[2019-11-08] MEDS: NICOTINE 14 MG/24 HR PATCH TRANSDERM SCH (08:34)
[2019-11-08] MEDS: POLYETHYLENE GLYCOL POWDER 17 GM PACK PO SCH (10:53)
[2019-11-08] MEDS: NYSTATIN POWDER 15 GM BOTTLE TOP SCH ×3 (15:59→21:50)
[2019-11-08] MEDS: ENOXAPARIN 40 MG/0.4 ML SYRINGE SUBCUT SCH (21:49)
[2019-11-08] MEDS: allopurinoL 300 MG TABLET PO SCH (21:49)
[2019-11-08] MEDS: diphenhydrAMINE CAP 25 MG CAPSULE PO PRN (21:50)
[2019-11-09] MEDS: LEVOTHYROXINE 175 MCG TABLET PO SCH (05:48)
[2019-11-09 06:04] LABS: Calcium 9.5 MG/DL (8.5-10.1); Osmolality,Calculated 282.5 MOS/KG (273-304)
[2019-11-09] MEDS: NICOTINE 14 MG/24 HR PATCH TRANSDERM SCH (09:02)
[2019-11-09] MEDS: GABAPENTIN 300 MG CAPSULE PO SCH ×3 (09:03→21:57)
[2019-11-09] MEDS: MULTIVITAMIN (CENTRUM) TABLET PO SCH (09:03)
[2019-11-09] MEDS: LISINOPRIL/HCTZ 10-12.5 MG TABLET PO SCH (09:03)
[2019-11-09] MEDS: NYSTATIN POWDER 15 GM BOTTLE TOP SCH ×4 (09:03→21:57)
[2019-11-09] MEDS: POLYETHYLENE GLYCOL POWDER 17 GM PACK PO SCH (09:04)
[2019-11-09] MEDS: allopurinoL 300 MG TABLET PO SCH (21:58)
[2019-11-09] MEDS: ENOXAPARIN 40 MG/0.4 ML SYRINGE SUBCUT SCH (21:58)
[2019-11-09] MEDS: diphenhydrAMINE CAP 25 MG CAPSULE PO PRN (22:45)
[2019-11-10] MEDS: LEVOTHYROXINE 175 MCG TABLET PO SCH (05:56)
[2019-11-10] MEDS: MULTIVITAMIN (CENTRUM) TABLET PO SCH (09:37)
[2019-11-10] MEDS: GABAPENTIN 300 MG CAPSULE PO SCH ×3 (09:37→23:00)
[2019-11-10] MEDS: NICOTINE 14 MG/24 HR PATCH TRANSDERM SCH (09:37)
[2019-11-10] MEDS: LISINOPRIL/HCTZ 10-12.5 MG TABLET PO SCH (09:53)
[2019-11-10] MEDS: POLYETHYLENE GLYCOL POWDER 17 GM PACK PO SCH (09:53)
[2019-11-10] MEDS: NYSTATIN POWDER 15 GM BOTTLE TOP SCH ×3 (09:54→23:00)
[2019-11-10] MEDS: diphenhydrAMINE CAP 25 MG CAPSULE PO PRN (22:57)
[2019-11-10] MEDS: allopurinoL 300 MG TABLET PO SCH (22:57)
[2019-11-10] MEDS: ENOXAPARIN 40 MG/0.4 ML SYRINGE SUBCUT SCH (22:57)
[2019-11-11 04:58] LABS: Basophils # 0.1 10*3/uL (0.0-0.2); Basophils % 1.8 % (0.0-0.8); Eosinophils # 0.2 10*3/uL (0.0-0.87); Eosinophils % 4.1 % (0.00-10.9); Hematocrit 38.5 VOL% (35.7-47.0); Hemoglobin 12.1 GM/DL (12.0-16.0); Immature Granulocytes % 0.5 %; Immature Granulocytes Absolute 0.02 #; Lymphocytes # 1.2 10*3/uL (1.4-4.0); Lymphocytes % 29.6 % (21.3-54.2); Mean Corpuscular HGB Conc 31.4 GM/DL (32-36); Mean Corpuscular Volume 98.5 FL (87-102); Mean Platelet Volume 10.4 FL (9.6-12.0); Monocytes % 9.9 % (1.7-12.7); Neutrophils % 54.1 % (38.7-73.9); Platelet Count 222 T/CUMM (130-400); Red Blood Count 3.91 MC/CUMM (3.8-5.5); Red Cell Distribution Width 14.6 % (9.3-17.3)
[2019-11-11 05:25] LABS: Band Neutrophils 2 % (0-10); Eosinophils 7 % (0-10); Hypochromasia 1+; Lymphocytes 32 % (20-55); Platelet Estimate Adequate; Segmented Neutrophils 54 % (50-85); Total Cells Counted 100
[2019-11-11] MEDS: LEVOTHYROXINE 175 MCG TABLET PO SCH (06:45)
[2019-11-11] MEDS: MULTIVITAMIN (CENTRUM) TABLET PO SCH (08:28)
[2019-11-11] MEDS: LISINOPRIL/HCTZ 10-12.5 MG TABLET PO SCH (08:28)
[2019-11-11] MEDS: GABAPENTIN 300 MG CAPSULE PO SCH ×3 (08:28→21:09)
[2019-11-11] MEDS: NICOTINE 14 MG/24 HR PATCH TRANSDERM SCH (08:28)
[2019-11-11] MEDS: NYSTATIN POWDER 15 GM BOTTLE TOP SCH ×3 (08:29→21:12)
[2019-11-11] MEDS: POLYETHYLENE GLYCOL POWDER 17 GM PACK PO SCH (08:29)
[2019-11-11] MEDS: allopurinoL 300 MG TABLET PO SCH (21:09)
[2019-11-11] MEDS: diphenhydrAMINE CAP 25 MG CAPSULE PO PRN (21:09)
[2019-11-11] MEDS: ENOXAPARIN 40 MG/0.4 ML SYRINGE SUBCUT SCH (21:09)
[2019-11-11] MEDS: ALUMINUM/MAGNES/SIMETH MAX STR 30 ML UDCUP PO PRN (23:24)
[2019-11-12] MEDS: LEVOTHYROXINE 175 MCG TABLET PO SCH (06:28)
[2019-11-12] MEDS: LISINOPRIL/HCTZ 10-12.5 MG TABLET PO SCH (09:46)
[2019-11-12] MEDS: NICOTINE 14 MG/24 HR PATCH TRANSDERM SCH (09:46)
[2019-11-12] MEDS: NYSTATIN POWDER 15 GM BOTTLE TOP SCH ×3 (09:46→21:11)
[2019-11-12] MEDS: GABAPENTIN 300 MG CAPSULE PO SCH ×3 (09:46→21:08)
[2019-11-12] MEDS: POLYETHYLENE GLYCOL POWDER 17 GM PACK PO SCH (09:47)
[2019-11-12] MEDS: MULTIVITAMIN (CENTRUM) TABLET PO SCH (09:48)
[2019-11-12] MEDS: allopurinoL 300 MG TABLET PO SCH (21:08)
[2019-11-12] MEDS: diphenhydrAMINE CAP 25 MG CAPSULE PO PRN (21:08)
[2019-11-12] MEDS: ALUMINUM/MAGNES/SIMETH MAX STR 30 ML UDCUP PO PRN (21:09)
[2019-11-12] MEDS: ENOXAPARIN 40 MG/0.4 ML SYRINGE SUBCUT SCH (21:09)
[2019-11-13] MEDS: LEVOTHYROXINE 175 MCG TABLET PO SCH (06:31)
[2019-11-13] MEDS: MULTIVITAMIN (CENTRUM) TABLET PO SCH (08:19)
[2019-11-13] MEDS: LISINOPRIL/HCTZ 10-12.5 MG TABLET PO SCH (08:19)
[2019-11-13] MEDS: GABAPENTIN 300 MG CAPSULE PO SCH ×3 (08:19→20:58)
[2019-11-13] MEDS: NYSTATIN POWDER 15 GM BOTTLE TOP SCH ×3 (08:20→20:58)
[2019-11-13] MEDS: NICOTINE 14 MG/24 HR PATCH TRANSDERM SCH (08:20)
[2019-11-13] MEDS: POLYETHYLENE GLYCOL POWDER 17 GM PACK PO SCH (08:20)
[2019-11-13] MEDS: allopurinoL 300 MG TABLET PO SCH (20:58)
[2019-11-13] MEDS: ENOXAPARIN 40 MG/0.4 ML SYRINGE SUBCUT SCH (20:58)
[2019-11-13] MEDS: diphenhydrAMINE CAP 25 MG CAPSULE PO PRN (23:01)
[2019-11-14] MEDS: ALUMINUM/MAGNES/SIMETH MAX STR 30 ML UDCUP PO PRN ×2 (01:46→22:35)
[2019-11-14] MEDS: LEVOTHYROXINE 175 MCG TABLET PO SCH (06:22)
[2019-11-14] MEDS: LISINOPRIL/HCTZ 10-12.5 MG TABLET PO SCH (08:30)
[2019-11-14] MEDS: NYSTATIN POWDER 15 GM BOTTLE TOP SCH ×3 (08:30→22:35)
[2019-11-14] MEDS: NICOTINE 14 MG/24 HR PATCH TRANSDERM SCH (08:30)
[2019-11-14] MEDS: MULTIVITAMIN (CENTRUM) TABLET PO SCH (08:30)
[2019-11-14] MEDS: POLYETHYLENE GLYCOL POWDER 17 GM PACK PO SCH (08:30)
[2019-11-14] MEDS: GABAPENTIN 300 MG CAPSULE PO SCH ×3 (08:30→22:35)
[2019-11-14] MEDS: ENOXAPARIN 40 MG/0.4 ML SYRINGE SUBCUT SCH (22:35)
[2019-11-14] MEDS: allopurinoL 300 MG TABLET PO SCH (22:35)
[2019-11-14] MEDS: diphenhydrAMINE CAP 25 MG CAPSULE PO PRN (22:35)
[2019-11-15] MEDS: LEVOTHYROXINE 175 MCG TABLET PO SCH (06:08)
[2019-11-15] MEDS: POLYETHYLENE GLYCOL POWDER 17 GM PACK PO SCH (09:08)
[2019-11-15] MEDS: NYSTATIN POWDER 15 GM BOTTLE TOP SCH ×3 (09:08→20:35)
[2019-11-15] MEDS: MULTIVITAMIN (CENTRUM) TABLET PO SCH (09:08)
[2019-11-15] MEDS: GABAPENTIN 300 MG CAPSULE PO SCH ×3 (09:08→20:35)
[2019-11-15] MEDS: LISINOPRIL/HCTZ 10-12.5 MG TABLET PO SCH (09:09)
[2019-11-15] MEDS: NICOTINE 14 MG/24 HR PATCH TRANSDERM SCH (09:09)
[2019-11-15] MEDS: allopurinoL 300 MG TABLET PO SCH (20:35)
[2019-11-15] MEDS: ENOXAPARIN 40 MG/0.4 ML SYRINGE SUBCUT SCH (20:35)
[2019-11-15] MEDS: diphenhydrAMINE CAP 25 MG CAPSULE PO PRN (22:46)
[2019-11-16] MEDS: LEVOTHYROXINE 175 MCG TABLET PO SCH (05:54)
[2019-11-16] MEDS: LISINOPRIL/HCTZ 10-12.5 MG TABLET PO SCH (08:59)
[2019-11-16] MEDS: MULTIVITAMIN (CENTRUM) TABLET PO SCH (08:59)
[2019-11-16] MEDS: GABAPENTIN 300 MG CAPSULE PO SCH ×3 (08:59→21:16)
[2019-11-16] MEDS: NYSTATIN POWDER 15 GM BOTTLE TOP SCH ×3 (09:00→21:16)
[2019-11-16] MEDS: NICOTINE 14 MG/24 HR PATCH TRANSDERM SCH (09:00)
[2019-11-16] MEDS: POLYETHYLENE GLYCOL POWDER 17 GM PACK PO SCH (09:02)
[2019-11-16] MEDS: ALUMINUM/MAGNES/SIMETH MAX STR 30 ML UDCUP PO PRN (16:50)
[2019-11-16] MEDS: allopurinoL 300 MG TABLET PO SCH (21:16)
[2019-11-16] MEDS: ENOXAPARIN 40 MG/0.4 ML SYRINGE SUBCUT SCH (21:16)
[2019-11-16] MEDS: diphenhydrAMINE CAP 25 MG CAPSULE PO PRN (21:17)
[2019-11-17] MEDS: LEVOTHYROXINE 175 MCG TABLET PO SCH (06:11)
[2019-11-17] MEDS: GABAPENTIN 300 MG CAPSULE PO SCH ×3 (09:09→21:33)
[2019-11-17] MEDS: NYSTATIN POWDER 15 GM BOTTLE TOP SCH ×3 (09:09→21:33)
[2019-11-17] MEDS: MULTIVITAMIN (CENTRUM) TABLET PO SCH (09:10)
[2019-11-17] MEDS: LISINOPRIL/HCTZ 10-12.5 MG TABLET PO SCH (09:10)
[2019-11-17] MEDS: NICOTINE 14 MG/24 HR PATCH TRANSDERM SCH (09:11)
[2019-11-17] MEDS: POLYETHYLENE GLYCOL POWDER 17 GM PACK PO SCH (10:16)
[2019-11-17] MEDS: ALUMINUM/MAGNES/SIMETH MAX STR 30 ML UDCUP PO PRN ×2 (17:03→23:33)
[2019-11-17] MEDS: allopurinoL 300 MG TABLET PO SCH (21:33)
[2019-11-17] MEDS: diphenhydrAMINE CAP 25 MG CAPSULE PO PRN (21:33)
[2019-11-17] MEDS: ENOXAPARIN 40 MG/0.4 ML SYRINGE SUBCUT SCH (21:33)
[2019-11-18] MEDS: LEVOTHYROXINE 175 MCG TABLET PO SCH (05:48)
[2019-11-18] MEDS: GABAPENTIN 300 MG CAPSULE PO SCH ×3 (10:01→20:46)
[2019-11-18] MEDS: LISINOPRIL/HCTZ 10-12.5 MG TABLET PO SCH (10:01)
[2019-11-18] MEDS: MULTIVITAMIN (CENTRUM) TABLET PO SCH (10:01)
[2019-11-18] MEDS: POLYETHYLENE GLYCOL POWDER 17 GM PACK PO SCH (10:04)
[2019-11-18] MEDS: NYSTATIN POWDER 15 GM BOTTLE TOP SCH ×3 (10:04→20:46)
[2019-11-18] MEDS: NICOTINE 14 MG/24 HR PATCH TRANSDERM SCH (10:07)
[2019-11-18] MEDS: ENOXAPARIN 40 MG/0.4 ML SYRINGE SUBCUT SCH (20:46)
[2019-11-18] MEDS: allopurinoL 300 MG TABLET PO SCH (20:46)
[2019-11-18] MEDS: diphenhydrAMINE CAP 25 MG CAPSULE PO PRN (22:20)
[2019-11-19 05:17] LABS: Basophils # 0.1 10*3/uL (0.0-0.2); Eosinophils # 0.2 10*3/uL (0.0-0.87); Eosinophils % 3.7 % (0.00-10.9); Hematocrit 39.3 VOL% (35.7-47.0); Hemoglobin 12.2 GM/DL (12.0-16.0); Immature Granulocytes % 0.5 %; Immature Granulocytes Absolute 0.02 #; Lymphocytes # 1.4 10*3/uL (1.4-4.0); Lymphocytes % 32.9 % (21.3-54.2); Mean Corpuscular Volume 98.7 FL (87-102); Mean Platelet Volume 10.6 FL (9.6-12.0); Monocytes % 11.7 % (1.7-12.7); Neutrophils % 49.2 % (38.7-73.9); Platelet Count 222 T/CUMM (130-400); Red Blood Count 3.98 MC/CUMM (3.8-5.5); Red Cell Distribution Width 14.4 % (9.3-17.3); White Blood Count 4.1 T/CUMM (4-12)
[2019-11-19 06:26] LABS: Hypochromasia 1+
[2019-11-19 06:27] LABS: Macrocytosis Slight; Platelet Estimate Normal
[2019-11-19] MEDS: LEVOTHYROXINE 175 MCG TABLET PO SCH (06:39)
[2019-11-19] MEDS: POLYETHYLENE GLYCOL POWDER 17 GM PACK PO SCH (09:48)
[2019-11-19] MEDS: GABAPENTIN 300 MG CAPSULE PO SCH ×3 (09:48→21:09)
[2019-11-19] MEDS: MULTIVITAMIN (CENTRUM) TABLET PO SCH (09:48)
[2019-11-19] MEDS: LISINOPRIL/HCTZ 10-12.5 MG TABLET PO SCH ×2 (09:49→10:21)
[2019-11-19] MEDS: NYSTATIN POWDER 15 GM BOTTLE TOP SCH ×3 (09:49→21:09)
[2019-11-19] MEDS: NICOTINE 14 MG/24 HR PATCH TRANSDERM SCH (09:49)
[2019-11-19] MEDS: ALUMINUM/MAGNES/SIMETH MAX STR 30 ML UDCUP PO PRN (18:08)
[2019-11-19] MEDS: allopurinoL 300 MG TABLET PO SCH (21:09)
[2019-11-19] MEDS: ENOXAPARIN 40 MG/0.4 ML SYRINGE SUBCUT SCH (21:10)
[2019-11-19] MEDS: diphenhydrAMINE CAP 25 MG CAPSULE PO PRN (22:13)
[2019-11-20] MEDS: LEVOTHYROXINE 175 MCG TABLET PO SCH (06:41)
[2019-11-20] MEDS: LISINOPRIL/HCTZ 10-12.5 MG TABLET PO SCH (10:14)
[2019-11-20] MEDS: MULTIVITAMIN (CENTRUM) TABLET PO SCH (10:14)
[2019-11-20] MEDS: NICOTINE 14 MG/24 HR PATCH TRANSDERM SCH (10:14)
[2019-11-20] MEDS: GABAPENTIN 300 MG CAPSULE PO SCH ×3 (10:14→20:18)
[2019-11-20] MEDS: POLYETHYLENE GLYCOL POWDER 17 GM PACK PO SCH (10:15)
[2019-11-20] MEDS: NYSTATIN POWDER 15 GM BOTTLE TOP SCH ×3 (10:15→20:17)
[2019-11-20] MEDS: ALUMINUM/MAGNES/SIMETH MAX STR 30 ML UDCUP PO PRN (18:10)
[2019-11-20] MEDS: ENOXAPARIN 40 MG/0.4 ML SYRINGE SUBCUT SCH (20:17)
[2019-11-20] MEDS: allopurinoL 300 MG TABLET PO SCH (20:18)
[2019-11-20] MEDS: diphenhydrAMINE CAP 25 MG CAPSULE PO PRN (22:25)
[2019-11-21] MEDS: LEVOTHYROXINE 175 MCG TABLET PO SCH (05:31)
[2019-11-21] MEDS: MULTIVITAMIN (CENTRUM) TABLET PO SCH (08:47)
[2019-11-21] MEDS: GABAPENTIN 300 MG CAPSULE PO SCH ×3 (08:47→20:12)
[2019-11-21] MEDS: POLYETHYLENE GLYCOL POWDER 17 GM PACK PO SCH (08:48)
[2019-11-21] MEDS: NICOTINE 14 MG/24 HR PATCH TRANSDERM SCH (08:48)
[2019-11-21] MEDS: LISINOPRIL/HCTZ 10-12.5 MG TABLET PO SCH (08:48)
[2019-11-21] MEDS: NYSTATIN POWDER 15 GM BOTTLE TOP SCH ×3 (08:49→20:15)
[2019-11-21] MEDS: ALUMINUM/MAGNES/SIMETH MAX STR 30 ML UDCUP PO PRN ×2 (10:04→18:09)
[2019-11-21] MEDS: allopurinoL 300 MG TABLET PO SCH (20:12)
[2019-11-21] MEDS: ENOXAPARIN 40 MG/0.4 ML SYRINGE SUBCUT SCH (20:13)
[2019-11-21] MEDS: diphenhydrAMINE CAP 25 MG CAPSULE PO PRN (22:21)
[2019-11-22] MEDS: LEVOTHYROXINE 175 MCG TABLET PO SCH (05:46)
[2019-11-22] MEDS: GABAPENTIN 300 MG CAPSULE PO SCH ×3 (08:50→20:58)
[2019-11-22] MEDS: NICOTINE 14 MG/24 HR PATCH TRANSDERM SCH (08:50)
[2019-11-22] MEDS: MULTIVITAMIN (CENTRUM) TABLET PO SCH (08:50)
[2019-11-22] MEDS: ALUMINUM/MAGNES/SIMETH MAX STR 30 ML UDCUP PO PRN ×3 (08:50→21:00)
[2019-11-22] MEDS: NYSTATIN POWDER 15 GM BOTTLE TOP SCH ×3 (08:51→21:37)
[2019-11-22] MEDS: LISINOPRIL/HCTZ 10-12.5 MG TABLET PO SCH (08:52)
[2019-11-22] MEDS: SKIN HEALING OINT (AQUAPHOR) 50 GM TUBE TOP SCH (08:52)
[2019-11-22] MEDS: POLYETHYLENE GLYCOL POWDER 17 GM PACK PO SCH (08:52)
[2019-11-22] MEDS: allopurinoL 300 MG TABLET PO SCH (20:58)
[2019-11-22] MEDS: ENOXAPARIN 40 MG/0.4 ML SYRINGE SUBCUT SCH (20:58)
[2019-11-22] MEDS: diphenhydrAMINE CAP 25 MG CAPSULE PO PRN (22:21)
[2019-11-23] MEDS: LEVOTHYROXINE 175 MCG TABLET PO SCH (05:32)
[2019-11-23] MEDS: POLYETHYLENE GLYCOL POWDER 17 GM PACK PO SCH (08:17)
[2019-11-23] MEDS: NICOTINE 14 MG/24 HR PATCH TRANSDERM SCH (08:17)
[2019-11-23] MEDS: LISINOPRIL/HCTZ 10-12.5 MG TABLET PO SCH (08:17)
[2019-11-23] MEDS: MULTIVITAMIN (CENTRUM) TABLET PO SCH (08:17)
[2019-11-23] MEDS: NYSTATIN POWDER 15 GM BOTTLE TOP SCH ×3 (08:17→22:10)
[2019-11-23] MEDS: GABAPENTIN 300 MG CAPSULE PO SCH ×3 (08:17→22:09)
[2019-11-23] MEDS: SKIN HEALING OINT (AQUAPHOR) 50 GM TUBE TOP SCH (08:19)
[2019-11-23] MEDS: ALUMINUM/MAGNES/SIMETH MAX STR 30 ML UDCUP PO PRN ×2 (08:32→14:45)
[2019-11-23] MEDS: ENOXAPARIN 40 MG/0.4 ML SYRINGE SUBCUT SCH (22:09)
[2019-11-23] MEDS: diphenhydrAMINE CAP 25 MG CAPSULE PO PRN (22:09)
[2019-11-23] MEDS: allopurinoL 300 MG TABLET PO SCH (22:09)
[2019-11-24] MEDS: LEVOTHYROXINE 175 MCG TABLET PO SCH (05:52)
[2019-11-24] MEDS: MULTIVITAMIN (CENTRUM) TABLET PO SCH (08:44)
[2019-11-24] MEDS: LISINOPRIL/HCTZ 10-12.5 MG TABLET PO SCH (08:44)
[2019-11-24] MEDS: GABAPENTIN 300 MG CAPSULE PO SCH ×3 (08:44→21:27)
[2019-11-24] MEDS: NICOTINE 14 MG/24 HR PATCH TRANSDERM SCH (08:44)
[2019-11-24] MEDS: NYSTATIN POWDER 15 GM BOTTLE TOP SCH ×3 (08:45→21:27)
[2019-11-24] MEDS: POLYETHYLENE GLYCOL POWDER 17 GM PACK PO SCH (08:45)
[2019-11-24] MEDS: SKIN HEALING OINT (AQUAPHOR) 50 GM TUBE TOP SCH (08:48)
[2019-11-24] MEDS: ENOXAPARIN 40 MG/0.4 ML SYRINGE SUBCUT SCH (21:26)
[2019-11-24] MEDS: diphenhydrAMINE CAP 25 MG CAPSULE PO PRN (21:26)
[2019-11-24] MEDS: allopurinoL 300 MG TABLET PO SCH (21:27)
[2019-11-25] MEDS: LEVOTHYROXINE 175 MCG TABLET PO SCH (05:41)
[2019-11-25] MEDS: LISINOPRIL/HCTZ 10-12.5 MG TABLET PO SCH (09:09)
[2019-11-25] MEDS: MULTIVITAMIN (CENTRUM) TABLET PO SCH (09:09)
[2019-11-25] MEDS: GABAPENTIN 300 MG CAPSULE PO SCH ×3 (09:09→21:34)
[2019-11-25] MEDS: NYSTATIN POWDER 15 GM BOTTLE TOP SCH ×3 (09:09→21:37)
[2019-11-25] MEDS: NICOTINE 14 MG/24 HR PATCH TRANSDERM SCH (09:09)
[2019-11-25] MEDS: POLYETHYLENE GLYCOL POWDER 17 GM PACK PO SCH (09:10)
[2019-11-25] MEDS: SKIN HEALING OINT (AQUAPHOR) 50 GM TUBE TOP SCH (09:10)
[2019-11-25] MEDS: ENOXAPARIN 40 MG/0.4 ML SYRINGE SUBCUT SCH (21:34)
[2019-11-25] MEDS: allopurinoL 300 MG TABLET PO SCH (21:34)
[2019-11-25] MEDS: diphenhydrAMINE CAP 25 MG CAPSULE PO PRN (21:53)
[2019-11-25] MEDS: ALUMINUM/MAGNES/SIMETH MAX STR 30 ML UDCUP PO PRN (23:08)
[2019-11-26] MEDS: LEVOTHYROXINE 175 MCG TABLET PO SCH (06:41)
[2019-11-26] MEDS: SKIN HEALING OINT (AQUAPHOR) 50 GM TUBE TOP SCH (09:00)
[2019-11-26] MEDS: NICOTINE 14 MG/24 HR PATCH TRANSDERM SCH (09:00)
[2019-11-26] MEDS: LISINOPRIL/HCTZ 10-12.5 MG TABLET PO SCH (09:00)
[2019-11-26] MEDS: GABAPENTIN 300 MG CAPSULE PO SCH ×3 (09:00→20:58)
[2019-11-26] MEDS: NYSTATIN POWDER 15 GM BOTTLE TOP SCH ×3 (09:00→20:59)
[2019-11-26] MEDS: LACTOBACILLUS ACIDOPHILUS/BULGARICUS CAPLET PO SCH (09:00)
[2019-11-26] MEDS: MULTIVITAMIN (CENTRUM) TABLET PO SCH (09:00)
[2019-11-26] MEDS ORDERED: POLYETHYLENE GLYCOL POWDER 17 GM PACK PO PRN (09:42)
[2019-11-26] MEDS: POLYETHYLENE GLYCOL POWDER 17 GM PACK PO SCH (10:29)
[2019-11-26] MEDS: CHOLESTYRAMINE 4 GM PACK PO SCH ×2 (11:39→21:02)
[2019-11-26] MEDS: diphenhydrAMINE CAP 25 MG CAPSULE PO PRN (20:58)
[2019-11-26] MEDS: allopurinoL 300 MG TABLET PO SCH (20:58)
[2019-11-26] MEDS: ENOXAPARIN 40 MG/0.4 ML SYRINGE SUBCUT SCH (20:59)
[2019-11-27] MEDS: LEVOTHYROXINE 175 MCG TABLET PO SCH (05:45)
[2019-11-27] MEDS: NICOTINE 14 MG/24 HR PATCH TRANSDERM SCH (10:03)
[2019-11-27] MEDS: MULTIVITAMIN (CENTRUM) TABLET PO SCH (10:04)
[2019-11-27] MEDS: LISINOPRIL/HCTZ 10-12.5 MG TABLET PO SCH (10:04)
[2019-11-27] MEDS: LACTOBACILLUS ACIDOPHILUS/BULGARICUS CAPLET PO SCH (10:06)
[2019-11-27] MEDS: GABAPENTIN 300 MG CAPSULE PO SCH ×3 (10:06→21:23)
[2019-11-27] MEDS: NYSTATIN POWDER 15 GM BOTTLE TOP SCH ×3 (10:07→21:23)
[2019-11-27] MEDS: SKIN HEALING OINT (AQUAPHOR) 50 GM TUBE TOP SCH (10:07)
[2019-11-27] MEDS: CHOLESTYRAMINE 4 GM PACK PO SCH ×2 (10:07→21:23)
[2019-11-27 18:06] LABS: Apearance,Urine CLOUDY (Clear); Bacteria,Urine Few /HPF (Few); Bilirubin,Urine Negative (Negative); Blood, Urine Negative (Negative); Glucose,Urine (UA) Negative (Negative); Ketones,Urine Negative (Negative); Mucus,Urine Occasional /LPF (Occasional); Nitrite,Urine Positive (Negative); Protein,Urine Negative; Squamous Epithelial Cell,Urine Occasional /HPF (0-10); Urine Color Yellow (Yellow); Urine Specific Gravity 1.015 (1.001-1.035); Urine Urobilinogen < 2.0 EU/DL (0.2-1.0)
[2019-11-27] MEDS: allopurinoL 300 MG TABLET PO SCH (21:22)
[2019-11-27] MEDS: ENOXAPARIN 40 MG/0.4 ML SYRINGE SUBCUT SCH (21:23)
[2019-11-27] MEDS: ALUMINUM/MAGNES/SIMETH MAX STR 30 ML UDCUP PO PRN (21:23)
[2019-11-27] MEDS: diphenhydrAMINE CAP 25 MG CAPSULE PO PRN (21:24)
[2019-11-28] MEDS: LEVOTHYROXINE 175 MCG TABLET PO SCH (06:22)
[2019-11-28 06:48] LABS: Basophils # 0.1 10*3/uL (0.0-0.2); Basophils % 1.5 % (0.0-0.8); Eosinophils # 0.1 10*3/uL (0.0-0.87); Eosinophils % 2.6 % (0.00-10.9); Hematocrit 40.6 VOL% (35.7-47.0); Hemoglobin 12.5 GM/DL (12.0-16.0); Immature Granulocytes % 0.6 %; Immature Granulocytes Absolute 0.02 #; Lymphocytes # 1.2 10*3/uL (1.4-4.0); Lymphocytes % 34.4 % (21.3-54.2); Mean Corpuscular HGB Conc 30.8 GM/DL (32-36); Mean Corpuscular Volume 98.8 FL (87-102); Mean Platelet Volume 10.7 FL (9.6-12.0); Monocytes % 10.5 % (1.7-12.7); Neutrophils % 50.4 % (38.7-73.9); Platelet Count 217 T/CUMM (130-400); Red Blood Count 4.11 MC/CUMM (3.8-5.5); Red Cell Distribution Width 14.1 % (9.3-17.3); White Blood Count 3.4 T/CUMM (4-12)
[2019-11-28 07:16] LABS: Hypochromasia 1+; Macrocytosis Slight; Platelet Estimate Normal
[2019-11-28 08:11] LABS: Calcium 9.4 MG/DL (8.5-10.1); Osmolality,Calculated 279.5 MOS/KG (273-304)
[2019-11-28] MEDS: cefTRIAXone 1,000 MG in SYRINGE 1 EACH IV SCH ×2 (10:48→10:56)
[2019-11-28] MEDS: MULTIVITAMIN (CENTRUM) TABLET PO SCH (10:48)
[2019-11-28] MEDS: SKIN HEALING OINT (AQUAPHOR) 50 GM TUBE TOP SCH (10:48)
[2019-11-28] MEDS: GABAPENTIN 300 MG CAPSULE PO SCH ×3 (10:48→21:52)
[2019-11-28] MEDS: NYSTATIN POWDER 15 GM BOTTLE TOP SCH ×3 (10:48→21:50)
[2019-11-28] MEDS: NICOTINE 14 MG/24 HR PATCH TRANSDERM SCH (10:48)
[2019-11-28] MEDS: LACTOBACILLUS ACIDOPHILUS/BULGARICUS CAPLET PO SCH (10:49)
[2019-11-28] MEDS: LISINOPRIL/HCTZ 10-12.5 MG TABLET PO SCH (10:49)
[2019-11-28] MEDS: CHOLESTYRAMINE 4 GM PACK PO SCH ×2 (11:03→21:53)
[2019-11-28] MEDS: ENOXAPARIN 40 MG/0.4 ML SYRINGE SUBCUT SCH (21:50)
[2019-11-28] MEDS: diphenhydrAMINE CAP 25 MG CAPSULE PO PRN (21:52)
[2019-11-28] MEDS: allopurinoL 300 MG TABLET PO SCH (21:52)
[2019-11-29] MEDS: LEVOTHYROXINE 175 MCG TABLET PO SCH (06:26)
[2019-11-29] MEDS: NICOTINE 14 MG/24 HR PATCH TRANSDERM SCH (09:11)
[2019-11-29] MEDS: LISINOPRIL/HCTZ 10-12.5 MG TABLET PO SCH (09:12)
[2019-11-29] MEDS: MULTIVITAMIN (CENTRUM) TABLET PO SCH (09:12)
[2019-11-29] MEDS: LACTOBACILLUS ACIDOPHILUS/BULGARICUS CAPLET PO SCH (09:12)
[2019-11-29] MEDS: CEFUROXIME 500 MG TABLET PO SCH ×2 (09:13→21:02)
[2019-11-29] MEDS: GABAPENTIN 300 MG CAPSULE PO SCH ×3 (09:13→21:02)
[2019-11-29] MEDS: SKIN HEALING OINT (AQUAPHOR) 50 GM TUBE TOP SCH (09:19)
[2019-11-29] MEDS: NYSTATIN POWDER 15 GM BOTTLE TOP SCH ×3 (09:19→21:03)
[2019-11-29] MEDS: CHOLESTYRAMINE 4 GM PACK PO SCH ×2 (09:20→21:03)
[2019-11-29] MEDS: cefTRIAXone 1,000 MG in SYRINGE 1 EACH IV SCH (09:21)
[2019-11-29] MEDS: ALUMINUM/MAGNES/SIMETH MAX STR 30 ML UDCUP PO PRN (21:01)
[2019-11-29] MEDS: diphenhydrAMINE CAP 25 MG CAPSULE PO PRN (21:02)
[2019-11-29] MEDS: allopurinoL 300 MG TABLET PO SCH (21:02)
[2019-11-29] MEDS: ENOXAPARIN 40 MG/0.4 ML SYRINGE SUBCUT SCH (21:08)
[2019-11-30] MEDS: LEVOTHYROXINE 175 MCG TABLET PO SCH (06:48)
[2019-11-30] MEDS: LACTOBACILLUS ACIDOPHILUS/BULGARICUS CAPLET PO SCH (08:54)
[2019-11-30] MEDS: CEFUROXIME 500 MG TABLET PO SCH ×2 (08:54→20:54)
[2019-11-30] MEDS: MULTIVITAMIN (CENTRUM) TABLET PO SCH (08:54)
[2019-11-30] MEDS: LISINOPRIL/HCTZ 10-12.5 MG TABLET PO SCH (08:54)
[2019-11-30] MEDS: GABAPENTIN 300 MG CAPSULE PO SCH ×3 (08:54→20:55)
[2019-11-30] MEDS: NICOTINE 14 MG/24 HR PATCH TRANSDERM SCH (08:55)
[2019-11-30] MEDS: CHOLESTYRAMINE 4 GM PACK PO SCH ×2 (08:55→20:55)
[2019-11-30] MEDS: SKIN HEALING OINT (AQUAPHOR) 50 GM TUBE TOP SCH (08:55)
[2019-11-30] MEDS: NYSTATIN POWDER 15 GM BOTTLE TOP SCH ×3 (08:55→20:58)
[2019-11-30] MEDS: ENOXAPARIN 40 MG/0.4 ML SYRINGE SUBCUT SCH (20:54)
[2019-11-30] MEDS: allopurinoL 300 MG TABLET PO SCH (20:55)
[2019-11-30] MEDS: diphenhydrAMINE CAP 25 MG CAPSULE PO PRN (20:55)
[2019-12-01] MEDS: LEVOTHYROXINE 175 MCG TABLET PO SCH (06:26)
[2019-12-01] MEDS: LACTOBACILLUS ACIDOPHILUS/BULGARICUS CAPLET PO SCH (09:02)
[2019-12-01] MEDS: MULTIVITAMIN (CENTRUM) TABLET PO SCH (09:02)
[2019-12-01] MEDS: CEFUROXIME 500 MG TABLET PO SCH ×2 (09:02→20:43)
[2019-12-01] MEDS: LISINOPRIL/HCTZ 10-12.5 MG TABLET PO SCH (09:02)
[2019-12-01] MEDS: GABAPENTIN 300 MG CAPSULE PO SCH ×3 (09:02→20:43)
[2019-12-01] MEDS: NICOTINE 14 MG/24 HR PATCH TRANSDERM SCH (09:03)
[2019-12-01] MEDS: CHOLESTYRAMINE 4 GM PACK PO SCH ×2 (09:04→20:47)
[2019-12-01] MEDS: NYSTATIN POWDER 15 GM BOTTLE TOP SCH ×3 (09:04→20:47)
[2019-12-01] MEDS: SKIN HEALING OINT (AQUAPHOR) 50 GM TUBE TOP SCH (09:04)
[2019-12-01] MEDS: allopurinoL 300 MG TABLET PO SCH (20:43)
[2019-12-01] MEDS: diphenhydrAMINE CAP 25 MG CAPSULE PO PRN (20:43)
[2019-12-01] MEDS: ENOXAPARIN 40 MG/0.4 ML SYRINGE SUBCUT SCH (20:43)
[2019-12-02] MEDS: LEVOTHYROXINE 175 MCG TABLET PO SCH (06:01)
[2019-12-02] MEDS: NICOTINE 14 MG/24 HR PATCH TRANSDERM SCH (08:35)
[2019-12-02] MEDS: MULTIVITAMIN (CENTRUM) TABLET PO SCH (08:35)
[2019-12-02] MEDS: GABAPENTIN 300 MG CAPSULE PO SCH ×3 (08:35→20:14)
[2019-12-02] MEDS: LACTOBACILLUS ACIDOPHILUS/BULGARICUS CAPLET PO SCH (08:36)
[2019-12-02] MEDS: LISINOPRIL/HCTZ 10-12.5 MG TABLET PO SCH (08:36)
[2019-12-02] MEDS: CEFUROXIME 500 MG TABLET PO SCH ×2 (08:43→20:14)
[2019-12-02] MEDS: SKIN HEALING OINT (AQUAPHOR) 50 GM TUBE TOP SCH (12:29)
[2019-12-02] MEDS: NYSTATIN POWDER 15 GM BOTTLE TOP SCH (12:29)
[2019-12-02] MEDS: allopurinoL 300 MG TABLET PO SCH (20:14)
[2019-12-02] MEDS: ENOXAPARIN 40 MG/0.4 ML SYRINGE SUBCUT SCH (20:14)
[2019-12-02] MEDS: diphenhydrAMINE CAP 25 MG CAPSULE PO PRN (20:15)
[2019-12-03] MEDS: LEVOTHYROXINE 175 MCG TABLET PO SCH (05:54)
[2019-12-03] MEDS: GABAPENTIN 300 MG CAPSULE PO SCH ×3 (08:33→20:32)
[2019-12-03] MEDS: NICOTINE 14 MG/24 HR PATCH TRANSDERM SCH (08:33)
[2019-12-03] MEDS: SKIN HEALING OINT (AQUAPHOR) 50 GM TUBE TOP SCH (08:33)
[2019-12-03] MEDS: LISINOPRIL/HCTZ 10-12.5 MG TABLET PO SCH (08:33)
[2019-12-03] MEDS: LACTOBACILLUS ACIDOPHILUS/BULGARICUS CAPLET PO SCH (08:34)
[2019-12-03] MEDS: MULTIVITAMIN (CENTRUM) TABLET PO SCH (08:34)
[2019-12-03] MEDS: CEFUROXIME 500 MG TABLET PO SCH ×3 (08:40→20:32)
[2019-12-03] MEDS: allopurinoL 300 MG TABLET PO SCH (20:32)
[2019-12-03] MEDS: ENOXAPARIN 40 MG/0.4 ML SYRINGE SUBCUT SCH (20:33)
[2019-12-04] MEDS: LEVOTHYROXINE 175 MCG TABLET PO SCH (05:46)
[2019-12-04 06:16] LABS: Basophils # 0.1 10*3/uL (0.0-0.2); Basophils % 2.2 % (0.0-0.8); Eosinophils # 0.1 10*3/uL (0.0-0.87); Eosinophils % 3.3 % (0.00-10.9); Hematocrit 40.2 VOL% (35.7-47.0); Hemoglobin 12.2 GM/DL (12.0-16.0); Immature Granulocytes % 0.3 %; Immature Granulocytes Absolute 0.01 #; Lymphocytes # 1.2 10*3/uL (1.4-4.0); Lymphocytes % 34.1 % (21.3-54.2); Mean Corpuscular HGB Conc 30.3 GM/DL (32-36); Mean Corpuscular Volume 99.8 FL (87-102); Mean Platelet Volume 10.8 FL (9.6-12.0); Monocytes % 11.6 % (1.7-12.7); Neutrophils % 48.5 % (38.7-73.9); Platelet Count 211 T/CUMM (130-400); Red Blood Count 4.03 MC/CUMM (3.8-5.5); Red Cell Distribution Width 13.9 % (9.3-17.3); White Blood Count 3.6 T/CUMM (4-12)
[2019-12-04 06:39] LABS: Calcium 9.3 MG/DL (8.5-10.1); Osmolality,Calculated 276.7 MOS/KG (273-304)
[2019-12-04 06:45] LABS: Band Neutrophils 14 % (0-10); Eosinophils 3 % (0-10); Lymphocytes 30 % (20-55); Segmented Neutrophils 39 % (50-85); Total Cells Counted 100
[2019-12-04 06:46] LABS: Anisocytosis Slight; Macrocytosis 1+; Platelet Estimate Normal
[2019-12-04] MEDS: LACTOBACILLUS ACIDOPHILUS/BULGARICUS CAPLET PO SCH (08:26)
[2019-12-04] MEDS: NICOTINE 14 MG/24 HR PATCH TRANSDERM SCH (08:26)
[2019-12-04] MEDS: LISINOPRIL/HCTZ 10-12.5 MG TABLET PO SCH (08:26)
[2019-12-04] MEDS: MULTIVITAMIN (CENTRUM) TABLET PO SCH (08:26)
[2019-12-04] MEDS: SKIN HEALING OINT (AQUAPHOR) 50 GM TUBE TOP SCH (08:26)
[2019-12-04] MEDS: GABAPENTIN 300 MG CAPSULE PO SCH ×3 (08:26→20:58)
[2019-12-04] MEDS: allopurinoL 300 MG TABLET PO SCH (20:58)
[2019-12-04] MEDS: ENOXAPARIN 40 MG/0.4 ML SYRINGE SUBCUT SCH (20:58)
[2019-12-04] MEDS: diphenhydrAMINE CAP 25 MG CAPSULE PO PRN (21:16)
[2019-12-05] MEDS: LEVOTHYROXINE 175 MCG TABLET PO SCH (06:52)
[2019-12-05] MEDS: LISINOPRIL/HCTZ 10-12.5 MG TABLET PO SCH (08:50)
[2019-12-05] MEDS: CHOLECALCIFEROL 400 UNIT TABLET PO SCH (08:50)
[2019-12-05] MEDS: MULTIVITAMIN (CENTRUM) TABLET PO SCH ×2 (08:50→10:00)
[2019-12-05] MEDS: GABAPENTIN 300 MG CAPSULE PO SCH ×3 (08:50→20:34)
[2019-12-05] MEDS: LACTOBACILLUS ACIDOPHILUS/BULGARICUS CAPLET PO SCH (08:50)
[2019-12-05] MEDS: SKIN HEALING OINT (AQUAPHOR) 50 GM TUBE TOP SCH (08:51)
[2019-12-05] MEDS: NICOTINE 7 MG/24 HR PATCH TRANSDERM PRN (08:53)
[2019-12-05] MEDS: SIMETHICONE CHEW 125 MG TABLET PO PRN ×2 (15:37→19:24)
[2019-12-05] MEDS: ENOXAPARIN 40 MG/0.4 ML SYRINGE SUBCUT SCH (20:34)
[2019-12-05] MEDS: allopurinoL 300 MG TABLET PO SCH (20:34)
[2019-12-05] MEDS: diphenhydrAMINE CAP 25 MG CAPSULE PO PRN (20:36)
[2019-12-06] MEDS: LEVOTHYROXINE 175 MCG TABLET PO SCH (05:47)
[2019-12-06] MEDS: LISINOPRIL/HCTZ 10-12.5 MG TABLET PO SCH (08:24)
[2019-12-06] MEDS: LACTOBACILLUS ACIDOPHILUS/BULGARICUS CAPLET PO SCH (08:24)
[2019-12-06] MEDS: CHOLECALCIFEROL 400 UNIT TABLET PO SCH (08:24)
[2019-12-06] MEDS: MULTIVITAMIN (CENTRUM) TABLET PO SCH ×2 (08:24→08:27)
[2019-12-06] MEDS: GABAPENTIN 300 MG CAPSULE PO SCH ×3 (08:25→21:19)
[2019-12-06] MEDS: NICOTINE 7 MG/24 HR PATCH TRANSDERM PRN (08:25)
[2019-12-06] MEDS: SKIN HEALING OINT (AQUAPHOR) 50 GM TUBE TOP SCH (08:25)
[2019-12-06] MEDS: SIMETHICONE CHEW 125 MG TABLET PO PRN (14:13)
[2019-12-06] MEDS: ENOXAPARIN 40 MG/0.4 ML SYRINGE SUBCUT SCH (21:19)
[2019-12-06] MEDS: allopurinoL 300 MG TABLET PO SCH (21:19)
[2019-12-06] MEDS: diphenhydrAMINE CAP 25 MG CAPSULE PO PRN (21:20)
[2019-12-07] MEDS: LEVOTHYROXINE 175 MCG TABLET PO SCH (06:11)
[2019-12-07] MEDS: LACTOBACILLUS ACIDOPHILUS/BULGARICUS CAPLET PO SCH (08:27)
[2019-12-07] MEDS: NICOTINE 7 MG/24 HR PATCH TRANSDERM PRN (08:27)
[2019-12-07] MEDS: CHOLECALCIFEROL 400 UNIT TABLET PO SCH (08:27)
[2019-12-07] MEDS: MULTIVITAMIN (CENTRUM) TABLET PO SCH ×2 (08:28)
[2019-12-07] MEDS: SKIN HEALING OINT (AQUAPHOR) 50 GM TUBE TOP SCH (08:28)
[2019-12-07] MEDS: LISINOPRIL/HCTZ 10-12.5 MG TABLET PO SCH (08:28)
[2019-12-07] MEDS: GABAPENTIN 300 MG CAPSULE PO SCH ×3 (08:28→20:47)
[2019-12-07] MEDS: allopurinoL 300 MG TABLET PO SCH (20:47)
[2019-12-07] MEDS: ENOXAPARIN 40 MG/0.4 ML SYRINGE SUBCUT SCH (20:48)
[2019-12-07] MEDS: diphenhydrAMINE CAP 25 MG CAPSULE PO PRN (20:48)
[2019-12-08] MEDS: LEVOTHYROXINE 175 MCG TABLET PO SCH (06:16)
[2019-12-08] MEDS: LACTOBACILLUS ACIDOPHILUS/BULGARICUS CAPLET PO SCH (08:36)
[2019-12-08] MEDS: MULTIVITAMIN (CENTRUM) TABLET PO SCH ×2 (08:37)
[2019-12-08] MEDS: GABAPENTIN 300 MG CAPSULE PO SCH ×3 (08:37→21:13)
[2019-12-08] MEDS: LISINOPRIL/HCTZ 10-12.5 MG TABLET PO SCH (08:37)
[2019-12-08] MEDS: SKIN HEALING OINT (AQUAPHOR) 50 GM TUBE TOP SCH (08:37)
[2019-12-08] MEDS: CHOLECALCIFEROL 400 UNIT TABLET PO SCH (08:37)
[2019-12-08] MEDS: allopurinoL 300 MG TABLET PO SCH (21:13)
[2019-12-08] MEDS: diphenhydrAMINE CAP 25 MG CAPSULE PO PRN (21:13)
[2019-12-08] MEDS: NICOTINE 7 MG/24 HR PATCH TRANSDERM PRN (21:14)
[2019-12-08] MEDS: ENOXAPARIN 40 MG/0.4 ML SYRINGE SUBCUT SCH (21:15)
[2019-12-09] MEDS: LEVOTHYROXINE 175 MCG TABLET PO SCH (05:53)
[2019-12-09] MEDS: LACTOBACILLUS ACIDOPHILUS/BULGARICUS CAPLET PO SCH (08:45)
[2019-12-09] MEDS: CHOLECALCIFEROL 400 UNIT TABLET PO SCH (08:45)
[2019-12-09] MEDS: MULTIVITAMIN (CENTRUM) TABLET PO SCH ×2 (08:45)
[2019-12-09] MEDS: GABAPENTIN 300 MG CAPSULE PO SCH ×3 (08:45→21:21)
[2019-12-09] MEDS: LISINOPRIL/HCTZ 10-12.5 MG TABLET PO SCH (08:45)
[2019-12-09] MEDS: SKIN HEALING OINT (AQUAPHOR) 50 GM TUBE TOP SCH (08:46)
[2019-12-09] MEDS: ACETAMINOPHEN 325 MG TABLET PO PRN (15:08)
[2019-12-09] MEDS: diphenhydrAMINE CAP 25 MG CAPSULE PO PRN (21:21)
[2019-12-09] MEDS: ENOXAPARIN 40 MG/0.4 ML SYRINGE SUBCUT SCH (21:21)
[2019-12-09] MEDS: allopurinoL 300 MG TABLET PO SCH (21:21)
[2019-12-09] MEDS: NICOTINE 7 MG/24 HR PATCH TRANSDERM PRN (21:22)
[2019-12-10] MEDS: LEVOTHYROXINE 175 MCG TABLET PO SCH (06:28)
[2019-12-10] MEDS: LISINOPRIL/HCTZ 10-12.5 MG TABLET PO SCH (08:16)
[2019-12-10] MEDS: SKIN HEALING OINT (AQUAPHOR) 50 GM TUBE TOP SCH (08:16)
[2019-12-10] MEDS: CHOLECALCIFEROL 400 UNIT TABLET PO SCH (08:16)
[2019-12-10] MEDS: GABAPENTIN 300 MG CAPSULE PO SCH ×3 (08:16→20:50)
[2019-12-10] MEDS: LACTOBACILLUS ACIDOPHILUS/BULGARICUS CAPLET PO SCH (08:16)
[2019-12-10] MEDS: MULTIVITAMIN (CENTRUM) TABLET PO SCH ×2 (08:16→08:32)
[2019-12-10] MEDS: allopurinoL 300 MG TABLET PO SCH (20:51)
[2019-12-10] MEDS: diphenhydrAMINE CAP 25 MG CAPSULE PO PRN (20:51)
[2019-12-10] MEDS: NICOTINE 7 MG/24 HR PATCH TRANSDERM PRN (20:52)
[2019-12-10] MEDS: ENOXAPARIN 40 MG/0.4 ML SYRINGE SUBCUT SCH (20:52)
[2019-12-11] MEDS: LEVOTHYROXINE 175 MCG TABLET PO SCH (06:20)
[2019-12-11] MEDS: LISINOPRIL/HCTZ 10-12.5 MG TABLET PO SCH (08:46)
[2019-12-11] MEDS: MULTIVITAMIN (CENTRUM) TABLET PO SCH ×2 (08:46→09:19)
[2019-12-11] MEDS: GABAPENTIN 300 MG CAPSULE PO SCH ×3 (08:46→21:13)
[2019-12-11] MEDS: LACTOBACILLUS ACIDOPHILUS/BULGARICUS CAPLET PO SCH (08:46)
[2019-12-11] MEDS: CHOLECALCIFEROL 400 UNIT TABLET PO SCH (08:47)
[2019-12-11] MEDS: SKIN HEALING OINT (AQUAPHOR) 50 GM TUBE TOP SCH (08:47)
[2019-12-11] MEDS: allopurinoL 300 MG TABLET PO SCH (21:13)
[2019-12-11] MEDS: diphenhydrAMINE CAP 25 MG CAPSULE PO PRN (21:13)
[2019-12-11] MEDS: ENOXAPARIN 40 MG/0.4 ML SYRINGE SUBCUT SCH (21:13)
[2019-12-11] MEDS: NICOTINE 7 MG/24 HR PATCH TRANSDERM PRN (21:14)
[2019-12-12 06:04] LABS: Basophils # 0.1 10*3/uL (0.0-0.2); Basophils % 1.7 % (0.0-0.8); Eosinophils # 0.1 10*3/uL (0.0-0.87); Eosinophils % 3.1 % (0.00-10.9); Hematocrit 41.6 VOL% (35.7-47.0); Hemoglobin 12.8 GM/DL (12.0-16.0); Immature Granulocytes % 0.6 %; Immature Granulocytes Absolute 0.02 #; Lymphocytes # 1.4 10*3/uL (1.4-4.0); Lymphocytes % 40.7 % (21.3-54.2); Mean Corpuscular HGB Conc 30.8 GM/DL (32-36); Mean Corpuscular Volume 97.7 FL (87-102); Mean Platelet Volume 11.2 FL (9.6-12.0); Monocytes % 10.7 % (1.7-12.7); Neutrophils % 43.2 % (38.7-73.9); Platelet Count 215 T/CUMM (130-400); Red Blood Count 4.26 MC/CUMM (3.8-5.5); Red Cell Distribution Width 14.1 % (9.3-17.3); White Blood Count 3.5 T/CUMM (4-12)
[2019-12-12] MEDS: LEVOTHYROXINE 175 MCG TABLET PO SCH (06:15)
[2019-12-12 07:56] LABS: Band Neutrophils 2 % (0-10); Eosinophils 4 % (0-10); Hypochromasia 2+; Lymphocytes 36 % (20-55); Platelet Estimate Normal; Reactive Lymphocytes 1+; Segmented Neutrophils 48 % (50-85); Total Cells Counted 100
[2019-12-12] MEDS: CHOLECALCIFEROL 400 UNIT TABLET PO SCH (08:01)
[2019-12-12] MEDS: SKIN HEALING OINT (AQUAPHOR) 50 GM TUBE TOP SCH (08:01)
[2019-12-12] MEDS: MULTIVITAMIN (CENTRUM) TABLET PO SCH ×2 (08:02)
[2019-12-12] MEDS: LISINOPRIL/HCTZ 10-12.5 MG TABLET PO SCH (08:02)
[2019-12-12] MEDS: LACTOBACILLUS ACIDOPHILUS/BULGARICUS CAPLET PO SCH (08:02)
[2019-12-12] MEDS: GABAPENTIN 300 MG CAPSULE PO SCH ×3 (08:02→20:46)
[2019-12-12] MEDS: diphenhydrAMINE CAP 25 MG CAPSULE PO PRN (20:46)
[2019-12-12] MEDS: NICOTINE 7 MG/24 HR PATCH TRANSDERM PRN (20:46)
[2019-12-12] MEDS: allopurinoL 300 MG TABLET PO SCH (20:46)
[2019-12-12] MEDS: ENOXAPARIN 40 MG/0.4 ML SYRINGE SUBCUT SCH (20:47)
[2019-12-13 04:53] LABS: Basophils # 0.1 10*3/uL (0.0-0.2); Basophils % 1.9 % (0.0-0.8); Eosinophils # 0.1 10*3/uL (0.0-0.87); Eosinophils % 2.8 % (0.00-10.9); Hematocrit 41.2 VOL% (35.7-47.0); Immature Granulocytes % 0.6 %; Immature Granulocytes Absolute 0.02 #; Lymphocytes # 1.1 10*3/uL (1.4-4.0); Mean Corpuscular HGB Conc 31.6 GM/DL (32-36); Mean Corpuscular Volume 95.4 FL (87-102); Mean Platelet Volume 10.9 FL (9.6-12.0); Monocytes % 11.4 % (1.7-12.7); Neutrophils % 48.3 % (38.7-73.9); Platelet Count 201 T/CUMM (130-400); Red Blood Count 4.32 MC/CUMM (3.8-5.5); White Blood Count 3.2 T/CUMM (4-12)
[2019-12-13 05:16] LABS: Hypochromasia 1+; Platelet Estimate Adequate
[2019-12-13 06:02] LABS: Calcium 9.2 MG/DL (8.5-10.1); Osmolality,Calculated 277.7 MOS/KG (273-304)
[2019-12-13] MEDS: LEVOTHYROXINE 175 MCG TABLET PO SCH (06:26)
[2019-12-13] MEDS: GABAPENTIN 300 MG CAPSULE PO SCH ×3 (08:47→20:53)
[2019-12-13] MEDS: SKIN HEALING OINT (AQUAPHOR) 50 GM TUBE TOP SCH (08:47)
[2019-12-13] MEDS: LISINOPRIL/HCTZ 10-12.5 MG TABLET PO SCH (08:48)
[2019-12-13] MEDS: MULTIVITAMIN (CENTRUM) TABLET PO SCH ×2 (08:48→08:50)
[2019-12-13] MEDS: LACTOBACILLUS ACIDOPHILUS/BULGARICUS CAPLET PO SCH (08:49)
[2019-12-13] MEDS: CHOLECALCIFEROL 400 UNIT TABLET PO SCH (08:49)
[2019-12-13] MEDS: ENOXAPARIN 40 MG/0.4 ML SYRINGE SUBCUT SCH (20:53)
[2019-12-13] MEDS: NICOTINE 7 MG/24 HR PATCH TRANSDERM PRN (20:53)
[2019-12-13] MEDS: allopurinoL 300 MG TABLET PO SCH (20:53)
[2019-12-13] MEDS: SIMETHICONE CHEW 125 MG TABLET PO PRN (20:53)
[2019-12-14] MEDS: LEVOTHYROXINE 175 MCG TABLET PO SCH (06:12)
[2019-12-14] MEDS: SKIN HEALING OINT (AQUAPHOR) 50 GM TUBE TOP SCH (08:09)
[2019-12-14] MEDS: LACTOBACILLUS ACIDOPHILUS/BULGARICUS CAPLET PO SCH (08:09)
[2019-12-14] MEDS: CHOLECALCIFEROL 400 UNIT TABLET PO SCH (08:09)
[2019-12-14] MEDS: GABAPENTIN 300 MG CAPSULE PO SCH ×3 (08:10→20:36)
[2019-12-14] MEDS: MULTIVITAMIN (CENTRUM) TABLET PO SCH ×2 (08:10)
[2019-12-14] MEDS: LISINOPRIL/HCTZ 10-12.5 MG TABLET PO SCH (08:10)
[2019-12-14] MEDS: NICOTINE 7 MG/24 HR PATCH TRANSDERM PRN (20:34)
[2019-12-14] MEDS: allopurinoL 300 MG TABLET PO SCH (20:36)
[2019-12-14] MEDS: ENOXAPARIN 40 MG/0.4 ML SYRINGE SUBCUT SCH (20:36)
[2019-12-15] MEDS: LEVOTHYROXINE 175 MCG TABLET PO SCH (05:46)
[2019-12-15] MEDS: GABAPENTIN 300 MG CAPSULE PO SCH ×3 (08:37→21:26)
[2019-12-15] MEDS: CHOLECALCIFEROL 400 UNIT TABLET PO SCH (08:37)
[2019-12-15] MEDS: LACTOBACILLUS ACIDOPHILUS/BULGARICUS CAPLET PO SCH (08:37)
[2019-12-15] MEDS: MULTIVITAMIN (CENTRUM) TABLET PO SCH ×2 (08:37→08:54)
[2019-12-15] MEDS: SKIN HEALING OINT (AQUAPHOR) 50 GM TUBE TOP SCH (08:40)
[2019-12-15] MEDS: LISINOPRIL/HCTZ 10-12.5 MG TABLET PO SCH (08:40)
[2019-12-15] MEDS: ENOXAPARIN 40 MG/0.4 ML SYRINGE SUBCUT SCH (21:26)
[2019-12-15] MEDS: allopurinoL 300 MG TABLET PO SCH (21:26)
[2019-12-15] MEDS: NICOTINE 7 MG/24 HR PATCH TRANSDERM PRN (21:27)
[2019-12-15] MEDS: diphenhydrAMINE CAP 25 MG CAPSULE PO PRN (22:11)
[2019-12-16] MEDS: LEVOTHYROXINE 175 MCG TABLET PO SCH (05:57)
[2019-12-16] MEDS: LISINOPRIL/HCTZ 10-12.5 MG TABLET PO SCH (08:57)
[2019-12-16] MEDS: CHOLECALCIFEROL 400 UNIT TABLET PO SCH (08:57)
[2019-12-16] MEDS: MULTIVITAMIN (CENTRUM) TABLET PO SCH ×2 (08:57)
[2019-12-16] MEDS: LACTOBACILLUS ACIDOPHILUS/BULGARICUS CAPLET PO SCH (08:57)
[2019-12-16] MEDS: GABAPENTIN 300 MG CAPSULE PO SCH ×3 (08:57→21:19)
[2019-12-16] MEDS: SKIN HEALING OINT (AQUAPHOR) 50 GM TUBE TOP SCH (08:58)
[2019-12-16] MEDS: ENOXAPARIN 40 MG/0.4 ML SYRINGE SUBCUT SCH (21:19)
[2019-12-16] MEDS: allopurinoL 300 MG TABLET PO SCH (21:19)
[2019-12-16] MEDS: NICOTINE 7 MG/24 HR PATCH TRANSDERM PRN (21:19)
[2019-12-16] MEDS: diphenhydrAMINE CAP 25 MG CAPSULE PO PRN (21:19)
[2019-12-17] MEDS: LEVOTHYROXINE 175 MCG TABLET PO SCH (06:01)
[2019-12-17] MEDS: SKIN HEALING OINT (AQUAPHOR) 50 GM TUBE TOP SCH (09:24)
[2019-12-17] MEDS: LACTOBACILLUS ACIDOPHILUS/BULGARICUS CAPLET PO SCH (09:25)
[2019-12-17] MEDS: GABAPENTIN 300 MG CAPSULE PO SCH ×3 (09:25→21:42)
[2019-12-17] MEDS: LISINOPRIL/HCTZ 10-12.5 MG TABLET PO SCH (09:25)
[2019-12-17] MEDS: MULTIVITAMIN (CENTRUM) TABLET PO SCH ×2 (09:26)
[2019-12-17] MEDS: CHOLECALCIFEROL 400 UNIT TABLET PO SCH (09:26)
[2019-12-17] MEDS: ENOXAPARIN 40 MG/0.4 ML SYRINGE SUBCUT SCH (21:42)
[2019-12-17] MEDS: NICOTINE 7 MG/24 HR PATCH TRANSDERM PRN (21:42)
[2019-12-17] MEDS: diphenhydrAMINE CAP 25 MG CAPSULE PO PRN (21:42)
[2019-12-17] MEDS: allopurinoL 300 MG TABLET PO SCH (21:42)
[2019-12-18] MEDS: LEVOTHYROXINE 175 MCG TABLET PO SCH (05:42)
[2019-12-18] MEDS: NICOTINE 7 MG/24 HR PATCH TRANSDERM PRN (09:00)
[2019-12-18] MEDS: LISINOPRIL/HCTZ 10-12.5 MG TABLET PO SCH (09:00)
[2019-12-18] MEDS: GABAPENTIN 300 MG CAPSULE PO SCH ×3 (09:00→20:48)
[2019-12-18] MEDS: MULTIVITAMIN (CENTRUM) TABLET PO SCH ×2 (09:01→09:02)
[2019-12-18] MEDS: CHOLECALCIFEROL 400 UNIT TABLET PO SCH (09:01)
[2019-12-18] MEDS: LACTOBACILLUS ACIDOPHILUS/BULGARICUS CAPLET PO SCH (09:01)
[2019-12-18] MEDS: SKIN HEALING OINT (AQUAPHOR) 50 GM TUBE TOP SCH (09:02)
[2019-12-18] MEDS: ENOXAPARIN 40 MG/0.4 ML SYRINGE SUBCUT SCH (20:48)
[2019-12-18] MEDS: allopurinoL 300 MG TABLET PO SCH (20:49)
[2019-12-18] MEDS: diphenhydrAMINE CAP 25 MG CAPSULE PO PRN (20:49)
[2019-12-19] MEDS: LEVOTHYROXINE 175 MCG TABLET PO SCH (06:15)
[2019-12-19] MEDS: LACTOBACILLUS ACIDOPHILUS/BULGARICUS CAPLET PO SCH (09:12)
[2019-12-19] MEDS: CHOLECALCIFEROL 400 UNIT TABLET PO SCH (09:12)
[2019-12-19] MEDS: LISINOPRIL/HCTZ 10-12.5 MG TABLET PO SCH (09:12)
[2019-12-19] MEDS: GABAPENTIN 300 MG CAPSULE PO SCH ×3 (09:12→21:31)
[2019-12-19] MEDS: MULTIVITAMIN (CENTRUM) TABLET PO SCH ×2 (09:12→09:16)
[2019-12-19] MEDS: NICOTINE 7 MG/24 HR PATCH TRANSDERM PRN (09:12)
[2019-12-19] MEDS: SKIN HEALING OINT (AQUAPHOR) 50 GM TUBE TOP SCH (09:16)
[2019-12-19] MEDS ORDERED: SODIUM CHLORIDE 0.65% NASAL SPRAY 45 ML BOTTLE BOTH NARES PRN (13:34)
[2019-12-19] MEDS: FLUTICASONE 50 MCG NASAL SPRAY 16 GM BOTTLE BOTH NARES SCH (14:00)
[2019-12-19] MEDS: allopurinoL 300 MG TABLET PO SCH (21:31)
[2019-12-19] MEDS: ENOXAPARIN 40 MG/0.4 ML SYRINGE SUBCUT SCH (21:31)
[2019-12-19] MEDS: diphenhydrAMINE CAP 25 MG CAPSULE PO PRN (21:31)
[2019-12-20] MEDS: LEVOTHYROXINE 175 MCG TABLET PO SCH (06:15)
[2019-12-20] MEDS: CHOLECALCIFEROL 400 UNIT TABLET PO SCH (09:16)
[2019-12-20] MEDS: MULTIVITAMIN (CENTRUM) TABLET PO SCH ×2 (09:16→09:17)
[2019-12-20] MEDS: GABAPENTIN 300 MG CAPSULE PO SCH ×3 (09:16→20:43)
[2019-12-20] MEDS: LACTOBACILLUS ACIDOPHILUS/BULGARICUS CAPLET PO SCH (09:16)
[2019-12-20] MEDS: FLUTICASONE 50 MCG NASAL SPRAY 16 GM BOTTLE BOTH NARES SCH (09:17)
[2019-12-20] MEDS: SKIN HEALING OINT (AQUAPHOR) 50 GM TUBE TOP SCH (09:17)
[2019-12-20] MEDS: NICOTINE 7 MG/24 HR PATCH TRANSDERM PRN (09:17)
[2019-12-20] MEDS: allopurinoL 300 MG TABLET PO SCH (20:42)
[2019-12-20] MEDS: diphenhydrAMINE CAP 25 MG CAPSULE PO PRN (20:42)
[2019-12-20] MEDS: ENOXAPARIN 40 MG/0.4 ML SYRINGE SUBCUT SCH (20:43)
[2019-12-21] MEDS: LEVOTHYROXINE 175 MCG TABLET PO SCH (06:21)
[2019-12-21] MEDS: MULTIVITAMIN (CENTRUM) TABLET PO SCH ×2 (09:07→09:09)
[2019-12-21] MEDS: CHOLECALCIFEROL 400 UNIT TABLET PO SCH (09:07)
[2019-12-21] MEDS: GABAPENTIN 300 MG CAPSULE PO SCH ×3 (09:07→20:20)
[2019-12-21] MEDS: NICOTINE 7 MG/24 HR PATCH TRANSDERM PRN (09:07)
[2019-12-21] MEDS: LACTOBACILLUS ACIDOPHILUS/BULGARICUS CAPLET PO SCH (09:07)
[2019-12-21] MEDS: SKIN HEALING OINT (AQUAPHOR) 50 GM TUBE TOP SCH (09:09)
[2019-12-21] MEDS: FLUTICASONE 50 MCG NASAL SPRAY 16 GM BOTTLE BOTH NARES SCH (09:12)
[2019-12-21 09:34] LABS: Basophils # 0.1 10*3/uL (0.0-0.2); Basophils % 1.6 % (0.0-0.8); Eosinophils # 0.1 10*3/uL (0.0-0.87); Eosinophils % 2.6 % (0.00-10.9); Hematocrit 42.1 VOL% (35.7-47.0); Hemoglobin 13.2 GM/DL (12.0-16.0); Immature Granulocytes % 0.6 %; Immature Granulocytes Absolute 0.02 #; Lymphocytes # 1.1 10*3/uL (1.4-4.0); Lymphocytes % 35.9 % (21.3-54.2); Mean Corpuscular HGB Conc 31.4 GM/DL (32-36); Mean Corpuscular Volume 96.3 FL (87-102); Mean Platelet Volume 10.5 FL (9.6-12.0); Monocytes % 9.3 % (1.7-12.7); Platelet Count 192 T/CUMM (130-400); Red Blood Count 4.37 MC/CUMM (3.8-5.5); Red Cell Distribution Width 14.2 % (9.3-17.3); White Blood Count 3.1 T/CUMM (4-12)
[2019-12-21 09:47] LABS: Calcium 9.3 MG/DL (8.5-10.1); Osmolality,Calculated 278.8 MOS/KG (273-304)
[2019-12-21 09:59] LABS: Band Neutrophils 1 % (0-10); Eosinophils 3 % (0-10); Hypochromasia 1+; Lymphocytes 27 % (20-55); Platelet Estimate Adequate; Segmented Neutrophils 59 % (50-85); Total Cells Counted 100
[2019-12-21] MEDS ORDERED: MAGNESIUM SULF RIDER 2 GM in PREMIX 1 EACH IV ONE (17:21)
[2019-12-21] MEDS: allopurinoL 300 MG TABLET PO SCH (20:20)
[2019-12-21] MEDS: diphenhydrAMINE CAP 25 MG CAPSULE PO PRN (20:21)
[2019-12-21] MEDS: ENOXAPARIN 40 MG/0.4 ML SYRINGE SUBCUT SCH (20:21)
[2019-12-21] MEDS: SIMETHICONE CHEW 125 MG TABLET PO PRN (22:31)
[2019-12-22] MEDS: LEVOTHYROXINE 175 MCG TABLET PO SCH (05:45)
[2019-12-22] MEDS ORDERED: MAGNESIUM SULF RIDER 2 GM in PREMIX 1 EACH IV ONE (07:30)
[2019-12-22] MEDS: MULTIVITAMIN (CENTRUM) TABLET PO SCH (09:14)
[2019-12-22] MEDS: CHOLECALCIFEROL 400 UNIT TABLET PO SCH (09:14)
[2019-12-22] MEDS: GABAPENTIN 300 MG CAPSULE PO SCH ×3 (09:14→21:24)
[2019-12-22] MEDS: MAGNESIUM CHLORIDE 64 MG TABLET PO SCH ×3 (09:14→21:24)
[2019-12-22] MEDS: LACTOBACILLUS ACIDOPHILUS/BULGARICUS CAPLET PO SCH (09:14)
[2019-12-22] MEDS: NICOTINE 7 MG/24 HR PATCH TRANSDERM PRN (09:15)
[2019-12-22] MEDS: SKIN HEALING OINT (AQUAPHOR) 50 GM TUBE TOP SCH (09:16)
[2019-12-22] MEDS: FLUTICASONE 50 MCG NASAL SPRAY 16 GM BOTTLE BOTH NARES SCH (09:16)
[2019-12-22] MEDS: allopurinoL 300 MG TABLET PO SCH (21:24)
[2019-12-22] MEDS: diphenhydrAMINE CAP 25 MG CAPSULE PO PRN (21:24)
[2019-12-22] MEDS: ENOXAPARIN 40 MG/0.4 ML SYRINGE SUBCUT SCH (21:24)
[2019-12-23] MEDS: LEVOTHYROXINE 175 MCG TABLET PO SCH (06:01)
[2019-12-23] MEDS: MULTIVITAMIN (CENTRUM) TABLET PO SCH (09:45)
[2019-12-23] MEDS: GABAPENTIN 300 MG CAPSULE PO SCH ×3 (09:45→20:00)
[2019-12-23] MEDS: LACTOBACILLUS ACIDOPHILUS/BULGARICUS CAPLET PO SCH (09:45)
[2019-12-23] MEDS: SKIN HEALING OINT (AQUAPHOR) 50 GM TUBE TOP SCH (09:45)
[2019-12-23] MEDS: MAGNESIUM CHLORIDE 64 MG TABLET PO SCH ×3 (09:45→20:00)
[2019-12-23] MEDS: CHOLECALCIFEROL 400 UNIT TABLET PO SCH (09:45)
[2019-12-23] MEDS: FLUTICASONE 50 MCG NASAL SPRAY 16 GM BOTTLE BOTH NARES SCH (09:46)
[2019-12-23] MEDS: NICOTINE 7 MG/24 HR PATCH TRANSDERM PRN (10:44)
[2019-12-23] MEDS: diphenhydrAMINE CAP 25 MG CAPSULE PO PRN (20:00)
[2019-12-23] MEDS: allopurinoL 300 MG TABLET PO SCH (20:00)
[2019-12-23] MEDS: ENOXAPARIN 40 MG/0.4 ML SYRINGE SUBCUT SCH (20:01)
[2019-12-24] MEDS: LEVOTHYROXINE 175 MCG TABLET PO SCH (06:07)
[2019-12-24] MEDS: FLUTICASONE 50 MCG NASAL SPRAY 16 GM BOTTLE BOTH NARES SCH (08:40)
[2019-12-24] MEDS: GABAPENTIN 300 MG CAPSULE PO SCH ×3 (08:40→20:22)
[2019-12-24] MEDS: MAGNESIUM CHLORIDE 64 MG TABLET PO SCH ×3 (08:40→20:22)
[2019-12-24] MEDS: SKIN HEALING OINT (AQUAPHOR) 50 GM TUBE TOP SCH (08:41)
[2019-12-24] MEDS: MULTIVITAMIN (CENTRUM) TABLET PO SCH (08:41)
[2019-12-24] MEDS: LACTOBACILLUS ACIDOPHILUS/BULGARICUS CAPLET PO SCH (08:41)
[2019-12-24] MEDS: CHOLECALCIFEROL 400 UNIT TABLET PO SCH (08:41)
[2019-12-24] MEDS: NICOTINE 7 MG/24 HR PATCH TRANSDERM PRN (09:46)
[2019-12-24] MEDS: diphenhydrAMINE CAP 25 MG CAPSULE PO PRN (20:22)
[2019-12-24] MEDS: allopurinoL 300 MG TABLET PO SCH (20:22)
[2019-12-24] MEDS: ENOXAPARIN 40 MG/0.4 ML SYRINGE SUBCUT SCH (20:22)
[2019-12-25] MEDS: LEVOTHYROXINE 175 MCG TABLET PO SCH (05:40)
[2019-12-25] MEDS: MAGNESIUM CHLORIDE 64 MG TABLET PO SCH ×3 (09:34→20:52)
[2019-12-25] MEDS: LOSARTAN 25 MG TABLET PO SCH (09:34)
[2019-12-25] MEDS: CHOLECALCIFEROL 400 UNIT TABLET PO SCH (09:35)
[2019-12-25] MEDS: LACTOBACILLUS ACIDOPHILUS/BULGARICUS CAPLET PO SCH (09:35)
[2019-12-25] MEDS: GABAPENTIN 300 MG CAPSULE PO SCH ×3 (09:35→20:52)
[2019-12-25] MEDS: SKIN HEALING OINT (AQUAPHOR) 50 GM TUBE TOP SCH (09:35)
[2019-12-25] MEDS: FLUTICASONE 50 MCG NASAL SPRAY 16 GM BOTTLE BOTH NARES SCH (09:35)
[2019-12-25] MEDS: MULTIVITAMIN (CENTRUM) TABLET PO SCH (09:35)
[2019-12-25] MEDS: NICOTINE 7 MG/24 HR PATCH TRANSDERM PRN (09:45)
[2019-12-25] MEDS: allopurinoL 300 MG TABLET PO SCH (20:52)
[2019-12-25] MEDS: diphenhydrAMINE CAP 25 MG CAPSULE PO PRN (20:52)
[2019-12-25] MEDS: ENOXAPARIN 40 MG/0.4 ML SYRINGE SUBCUT SCH (20:53)
[2019-12-26] MEDS: LEVOTHYROXINE 175 MCG TABLET PO SCH (06:03)
[2019-12-26] MEDS: SIMETHICONE CHEW 125 MG TABLET PO PRN ×2 (10:20→22:11)
[2019-12-26] MEDS: GABAPENTIN 300 MG CAPSULE PO SCH ×3 (10:20→20:32)
[2019-12-26] MEDS: CHOLECALCIFEROL 400 UNIT TABLET PO SCH (10:20)
[2019-12-26] MEDS: LACTOBACILLUS ACIDOPHILUS/BULGARICUS CAPLET PO SCH (10:20)
[2019-12-26] MEDS: LOSARTAN 25 MG TABLET PO SCH (10:21)
[2019-12-26] MEDS: MAGNESIUM CHLORIDE 64 MG TABLET PO SCH ×3 (10:21→20:32)
[2019-12-26] MEDS: MULTIVITAMIN (CENTRUM) TABLET PO SCH (10:21)
[2019-12-26] MEDS: SKIN HEALING OINT (AQUAPHOR) 50 GM TUBE TOP SCH (10:21)
[2019-12-26] MEDS: FLUTICASONE 50 MCG NASAL SPRAY 16 GM BOTTLE BOTH NARES SCH (10:22)
[2019-12-26] MEDS: NICOTINE 7 MG/24 HR PATCH TRANSDERM PRN (11:12)
[2019-12-26] MEDS: diphenhydrAMINE CAP 25 MG CAPSULE PO PRN (20:32)
[2019-12-26] MEDS: allopurinoL 300 MG TABLET PO SCH (20:32)
[2019-12-26] MEDS: ENOXAPARIN 40 MG/0.4 ML SYRINGE SUBCUT SCH (20:34)
[2019-12-26] MEDS: ALUMINUM/MAGNES/SIMETH MAX STR 30 ML UDCUP PO PRN (22:12)
[2019-12-27] MEDS: LEVOTHYROXINE 175 MCG TABLET PO SCH (05:44)
[2019-12-27] MEDS: NICOTINE 7 MG/24 HR PATCH TRANSDERM PRN (09:48)
[2019-12-27] MEDS: MULTIVITAMIN (CENTRUM) TABLET PO SCH (09:48)
[2019-12-27] MEDS: CHOLECALCIFEROL 400 UNIT TABLET PO SCH (09:48)
[2019-12-27] MEDS: MAGNESIUM CHLORIDE 64 MG TABLET PO SCH (09:49)
[2019-12-27] MEDS: LACTOBACILLUS ACIDOPHILUS/BULGARICUS CAPLET PO SCH (09:49)
[2019-12-27] MEDS: FLUTICASONE 50 MCG NASAL SPRAY 16 GM BOTTLE BOTH NARES SCH (09:49)
[2019-12-27] MEDS: GABAPENTIN 300 MG CAPSULE PO SCH ×3 (09:49→21:11)
[2019-12-27] MEDS: LOSARTAN 25 MG TABLET PO SCH (09:49)
[2019-12-27] MEDS: SKIN HEALING OINT (AQUAPHOR) 50 GM TUBE TOP SCH (09:51)
[2019-12-27] MEDS: diphenhydrAMINE CAP 25 MG CAPSULE PO PRN (21:11)
[2019-12-27] MEDS: ENOXAPARIN 40 MG/0.4 ML SYRINGE SUBCUT SCH (21:12)
[2019-12-27] MEDS: allopurinoL 300 MG TABLET PO SCH (21:12)
[2019-12-28] MEDS: LEVOTHYROXINE 175 MCG TABLET PO SCH (05:59)
[2019-12-28] MEDS ORDERED: MAGNESIUM SULF RIDER 2 GM in PREMIX 1 EACH IV ONE (07:51)
[2019-12-28] MEDS: LOSARTAN 25 MG TABLET PO SCH (08:34)
[2019-12-28] MEDS: NICOTINE 7 MG/24 HR PATCH TRANSDERM PRN (08:34)
[2019-12-28] MEDS: CHOLECALCIFEROL 400 UNIT TABLET PO SCH (08:34)
[2019-12-28] MEDS: GABAPENTIN 300 MG CAPSULE PO SCH ×3 (08:34→21:36)
[2019-12-28] MEDS: LACTOBACILLUS ACIDOPHILUS/BULGARICUS CAPLET PO SCH (08:35)
[2019-12-28] MEDS: MULTIVITAMIN (CENTRUM) TABLET PO SCH (08:35)
[2019-12-28] MEDS: SKIN HEALING OINT (AQUAPHOR) 50 GM TUBE TOP SCH (08:36)
[2019-12-28] MEDS: FLUTICASONE 50 MCG NASAL SPRAY 16 GM BOTTLE BOTH NARES SCH (08:36)
[2019-12-28] MEDS: diphenhydrAMINE CAP 25 MG CAPSULE PO PRN (21:36)
[2019-12-28] MEDS: allopurinoL 300 MG TABLET PO SCH (21:36)
[2019-12-28] MEDS: MAGNESIUM CHLORIDE 64 MG TABLET PO SCH (21:36)
[2019-12-28] MEDS: ENOXAPARIN 40 MG/0.4 ML SYRINGE SUBCUT SCH (21:37)
[2019-12-29] MEDS: LEVOTHYROXINE 175 MCG TABLET PO SCH (05:50)
[2019-12-29 07:07] LABS: Calcium 9.7 MG/DL (8.5-10.1); Osmolality,Calculated 277.7 MOS/KG (273-304)
[2019-12-29] MEDS: GABAPENTIN 300 MG CAPSULE PO SCH ×3 (08:35→21:06)
[2019-12-29] MEDS: MULTIVITAMIN (CENTRUM) TABLET PO SCH (08:35)
[2019-12-29] MEDS: SKIN HEALING OINT (AQUAPHOR) 50 GM TUBE TOP SCH (08:35)
[2019-12-29] MEDS: LACTOBACILLUS ACIDOPHILUS/BULGARICUS CAPLET PO SCH (08:35)
[2019-12-29] MEDS: MAGNESIUM CHLORIDE 64 MG TABLET PO SCH ×2 (08:35→21:06)
[2019-12-29] MEDS: LOSARTAN 25 MG TABLET PO SCH (08:35)
[2019-12-29] MEDS: CHOLECALCIFEROL 400 UNIT TABLET PO SCH (08:35)
[2019-12-29] MEDS: FLUTICASONE 50 MCG NASAL SPRAY 16 GM BOTTLE BOTH NARES SCH (08:35)
[2019-12-29] MEDS: NICOTINE 7 MG/24 HR PATCH TRANSDERM PRN (08:40)
[2019-12-29] MEDS: allopurinoL 300 MG TABLET PO SCH (21:06)
[2019-12-29] MEDS: diphenhydrAMINE CAP 25 MG CAPSULE PO PRN (21:06)
[2019-12-29] MEDS: ENOXAPARIN 40 MG/0.4 ML SYRINGE SUBCUT SCH (21:06)
[2019-12-30] MEDS: LEVOTHYROXINE 175 MCG TABLET PO SCH (06:09)
[2019-12-30] MEDS: LACTOBACILLUS ACIDOPHILUS/BULGARICUS CAPLET PO SCH (08:23)
[2019-12-30] MEDS: MAGNESIUM CHLORIDE 64 MG TABLET PO SCH ×2 (08:23→20:10)
[2019-12-30] MEDS: CHOLECALCIFEROL 400 UNIT TABLET PO SCH (08:23)
[2019-12-30] MEDS: MULTIVITAMIN (CENTRUM) TABLET PO SCH (08:23)
[2019-12-30] MEDS: LOSARTAN 25 MG TABLET PO SCH (08:24)
[2019-12-30] MEDS: GABAPENTIN 300 MG CAPSULE PO SCH ×3 (08:24→20:10)
[2019-12-30] MEDS: NICOTINE 7 MG/24 HR PATCH TRANSDERM PRN (08:24)
[2019-12-30] MEDS: FLUTICASONE 50 MCG NASAL SPRAY 16 GM BOTTLE BOTH NARES SCH (08:27)
[2019-12-30] MEDS: SKIN HEALING OINT (AQUAPHOR) 50 GM TUBE TOP SCH (08:28)
[2019-12-30] MEDS: diphenhydrAMINE CAP 25 MG CAPSULE PO PRN (20:10)
[2019-12-30] MEDS: allopurinoL 300 MG TABLET PO SCH (20:19)
[2019-12-30] MEDS: ENOXAPARIN 40 MG/0.4 ML SYRINGE SUBCUT SCH (20:20)
[2019-12-31] MEDS: LEVOTHYROXINE 175 MCG TABLET PO SCH (06:13)
[2019-12-31] MEDS: CHOLECALCIFEROL 400 UNIT TABLET PO SCH (09:38)
[2019-12-31] MEDS: LOSARTAN 25 MG TABLET PO SCH (09:38)
[2019-12-31] MEDS: MULTIVITAMIN (CENTRUM) TABLET PO SCH (09:38)
[2019-12-31] MEDS: MAGNESIUM CHLORIDE 64 MG TABLET PO SCH ×2 (09:38→20:20)
[2019-12-31] MEDS: GABAPENTIN 300 MG CAPSULE PO SCH ×3 (09:38→20:20)
[2019-12-31] MEDS: LACTOBACILLUS ACIDOPHILUS/BULGARICUS CAPLET PO SCH (09:38)
[2019-12-31] MEDS: NICOTINE 7 MG/24 HR PATCH TRANSDERM PRN (09:38)
[2019-12-31] MEDS: SKIN HEALING OINT (AQUAPHOR) 50 GM TUBE TOP SCH (09:40)
[2019-12-31] MEDS: FLUTICASONE 50 MCG NASAL SPRAY 16 GM BOTTLE BOTH NARES SCH (09:40)
[2019-12-31] MEDS: ENOXAPARIN 40 MG/0.4 ML SYRINGE SUBCUT SCH (20:20)
[2019-12-31] MEDS: diphenhydrAMINE CAP 25 MG CAPSULE PO PRN (20:20)
[2019-12-31] MEDS: allopurinoL 300 MG TABLET PO SCH (20:21)
[2020-01-01] MEDS: LEVOTHYROXINE 175 MCG TABLET PO SCH (05:41)
[2020-01-01 05:58] LABS: Basophils # 0.1 10*3/uL (0.0-0.2); Basophils % 1.5 % (0.0-0.8); Eosinophils # 0.1 10*3/uL (0.0-0.87); Hematocrit 40.6 VOL% (35.7-47.0); Hemoglobin 12.6 GM/DL (12.0-16.0); Immature Granulocytes % 0.9 %; Immature Granulocytes Absolute 0.03 #; Lymphocytes # 1.3 10*3/uL (1.4-4.0); Lymphocytes % 38.7 % (21.3-54.2); Mean Corpuscular Volume 97.1 FL (87-102); Mean Platelet Volume 11.2 FL (9.6-12.0); Monocytes % 10.5 % (1.7-12.7); Neutrophils % 46.4 % (38.7-73.9); Platelet Count 185 T/CUMM (130-400); Red Blood Count 4.18 MC/CUMM (3.8-5.5); Red Cell Distribution Width 14.8 % (9.3-17.3); White Blood Count 3.4 T/CUMM (4-12)
[2020-01-01 06:21] LABS: Calcium 9.2 MG/DL (8.5-10.1); Osmolality,Calculated 281.4 MOS/KG (273-304)
[2020-01-01 06:27] LABS: Eosinophils 1 % (0-10); Hypochromasia 1+; Lymphocytes 37 % (20-55); Platelet Estimate Adequate; Segmented Neutrophils 55 % (50-85); Total Cells Counted 100
[2020-01-01] MEDS: MAGNESIUM CHLORIDE 64 MG TABLET PO SCH ×2 (09:46→21:12)
[2020-01-01] MEDS: LOSARTAN 25 MG TABLET PO SCH (09:46)
[2020-01-01] MEDS: CHOLECALCIFEROL 400 UNIT TABLET PO SCH (09:46)
[2020-01-01] MEDS: FLUTICASONE 50 MCG NASAL SPRAY 16 GM BOTTLE BOTH NARES SCH (09:46)
[2020-01-01] MEDS: LACTOBACILLUS ACIDOPHILUS/BULGARICUS CAPLET PO SCH (09:46)
[2020-01-01] MEDS: GABAPENTIN 300 MG CAPSULE PO SCH ×3 (09:46→21:12)
[2020-01-01] MEDS: MULTIVITAMIN (CENTRUM) TABLET PO SCH (09:46)
[2020-01-01] MEDS: SKIN HEALING OINT (AQUAPHOR) 50 GM TUBE TOP SCH (09:46)
[2020-01-01] MEDS: NICOTINE 7 MG/24 HR PATCH TRANSDERM PRN (11:12)
[2020-01-01] MEDS: ENOXAPARIN 40 MG/0.4 ML SYRINGE SUBCUT SCH (21:12)
[2020-01-01] MEDS: diphenhydrAMINE CAP 25 MG CAPSULE PO PRN (21:12)
[2020-01-01] MEDS: allopurinoL 300 MG TABLET PO SCH (21:12)
[2020-01-02] MEDS: LEVOTHYROXINE 175 MCG TABLET PO SCH (05:31)
[2020-01-02] MEDS: MAGNESIUM CHLORIDE 64 MG TABLET PO SCH ×2 (09:06→20:24)
[2020-01-02] MEDS: MULTIVITAMIN (CENTRUM) TABLET PO SCH (09:06)
[2020-01-02] MEDS: LOSARTAN 25 MG TABLET PO SCH (09:06)
[2020-01-02] MEDS: LACTOBACILLUS ACIDOPHILUS/BULGARICUS CAPLET PO SCH (09:06)
[2020-01-02] MEDS: CHOLECALCIFEROL 400 UNIT TABLET PO SCH (09:06)
[2020-01-02] MEDS: FLUTICASONE 50 MCG NASAL SPRAY 16 GM BOTTLE BOTH NARES SCH (09:07)
[2020-01-02] MEDS: SKIN HEALING OINT (AQUAPHOR) 50 GM TUBE TOP SCH (09:07)
[2020-01-02] MEDS: GABAPENTIN 300 MG CAPSULE PO SCH ×3 (09:07→20:25)
[2020-01-02] MEDS: NICOTINE 7 MG/24 HR PATCH TRANSDERM PRN (11:41)
[2020-01-02] MEDS: ENOXAPARIN 40 MG/0.4 ML SYRINGE SUBCUT SCH (20:24)
[2020-01-02] MEDS: diphenhydrAMINE CAP 25 MG CAPSULE PO PRN (20:24)
[2020-01-02] MEDS: allopurinoL 300 MG TABLET PO SCH (20:25)
[2020-01-03] MEDS: LEVOTHYROXINE 175 MCG TABLET PO SCH (06:24)
[2020-01-03] MEDS: LACTOBACILLUS ACIDOPHILUS/BULGARICUS CAPLET PO SCH (08:57)
[2020-01-03] MEDS: GABAPENTIN 300 MG CAPSULE PO SCH ×3 (08:57→20:41)
[2020-01-03] MEDS: MAGNESIUM CHLORIDE 64 MG TABLET PO SCH ×2 (08:57→20:41)
[2020-01-03] MEDS: CHOLECALCIFEROL 400 UNIT TABLET PO SCH (08:57)
[2020-01-03] MEDS: MULTIVITAMIN (CENTRUM) TABLET PO SCH (08:57)
[2020-01-03] MEDS: LOSARTAN 25 MG TABLET PO SCH (08:57)
[2020-01-03] MEDS: FLUTICASONE 50 MCG NASAL SPRAY 16 GM BOTTLE BOTH NARES SCH (08:58)
[2020-01-03] MEDS: NICOTINE 7 MG/24 HR PATCH TRANSDERM PRN (08:58)
[2020-01-03] MEDS: SKIN HEALING OINT (AQUAPHOR) 50 GM TUBE TOP SCH (08:58)
[2020-01-03] MEDS: ENOXAPARIN 40 MG/0.4 ML SYRINGE SUBCUT SCH (20:40)
[2020-01-03] MEDS: diphenhydrAMINE CAP 25 MG CAPSULE PO PRN (20:41)
[2020-01-03] MEDS: allopurinoL 300 MG TABLET PO SCH (20:41)
[2020-01-04 03:23] LABS: Basophils # 0.1 10*3/uL (0.0-0.2); Basophils % 1.4 % (0.0-0.8); Eosinophils # 0.1 10*3/uL (0.0-0.87); Eosinophils % 2.3 % (0.00-10.9); Hematocrit 40.4 VOL% (35.7-47.0); Hemoglobin 12.6 GM/DL (12.0-16.0); Immature Granulocytes % 1.1 %; Immature Granulocytes Absolute 0.04 #; Lymphocytes # 1.3 10*3/uL (1.4-4.0); Lymphocytes % 36.9 % (21.3-54.2); Mean Corpuscular HGB Conc 31.2 GM/DL (32-36); Mean Corpuscular Volume 98.1 FL (87-102); Mean Platelet Volume 10.8 FL (9.6-12.0); Neutrophils % 48.3 % (38.7-73.9); Platelet Count 185 T/CUMM (130-400); Red Blood Count 4.12 MC/CUMM (3.8-5.5); White Blood Count 3.5 T/CUMM (4-12)
[2020-01-04 04:06] LABS: Calcium 8.9 MG/DL (8.5-10.1); Osmolality,Calculated 281.4 MOS/KG (273-304); Thyroid Stimulating Hormone 0.906 uIU/ml (0.358-3.74)
[2020-01-04] MEDS: LEVOTHYROXINE 175 MCG TABLET PO SCH (05:36)
[2020-01-04] MEDS: LOSARTAN 25 MG TABLET PO SCH (09:01)
[2020-01-04] MEDS: MAGNESIUM CHLORIDE 64 MG TABLET PO SCH ×2 (09:01→20:15)
[2020-01-04] MEDS: LACTOBACILLUS ACIDOPHILUS/BULGARICUS CAPLET PO SCH (09:01)
[2020-01-04] MEDS: CHOLECALCIFEROL 400 UNIT TABLET PO SCH (09:01)
[2020-01-04] MEDS: MULTIVITAMIN (CENTRUM) TABLET PO SCH (09:01)
[2020-01-04] MEDS: GABAPENTIN 300 MG CAPSULE PO SCH ×3 (09:01→20:15)
[2020-01-04] MEDS: NICOTINE 7 MG/24 HR PATCH TRANSDERM PRN (09:02)
[2020-01-04] MEDS: SKIN HEALING OINT (AQUAPHOR) 50 GM TUBE TOP SCH (09:05)
[2020-01-04] MEDS: FLUTICASONE 50 MCG NASAL SPRAY 16 GM BOTTLE BOTH NARES SCH (09:05)
[2020-01-04] MEDS: ENOXAPARIN 40 MG/0.4 ML SYRINGE SUBCUT SCH (20:15)
[2020-01-04] MEDS: allopurinoL 300 MG TABLET PO SCH (20:15)
[2020-01-04] MEDS: diphenhydrAMINE CAP 25 MG CAPSULE PO PRN (20:16)
[2020-01-05] MEDS: LEVOTHYROXINE 175 MCG TABLET PO SCH (05:54)
[2020-01-05] MEDS: CHOLECALCIFEROL 400 UNIT TABLET PO SCH (08:29)
[2020-01-05] MEDS: NICOTINE 7 MG/24 HR PATCH TRANSDERM PRN (08:29)
[2020-01-05] MEDS: LACTOBACILLUS ACIDOPHILUS/BULGARICUS CAPLET PO SCH (08:29)
[2020-01-05] MEDS: LOSARTAN 25 MG TABLET PO SCH (08:30)
[2020-01-05] MEDS: MAGNESIUM CHLORIDE 64 MG TABLET PO SCH ×2 (08:30→20:21)
[2020-01-05] MEDS: FLUTICASONE 50 MCG NASAL SPRAY 16 GM BOTTLE BOTH NARES SCH (08:30)
[2020-01-05] MEDS: SKIN HEALING OINT (AQUAPHOR) 50 GM TUBE TOP SCH (08:30)
[2020-01-05] MEDS: GABAPENTIN 300 MG CAPSULE PO SCH ×3 (08:30→20:21)
[2020-01-05] MEDS: MULTIVITAMIN (CENTRUM) TABLET PO SCH (08:30)
[2020-01-05] MEDS: diphenhydrAMINE CAP 25 MG CAPSULE PO PRN (20:21)
[2020-01-05] MEDS: allopurinoL 300 MG TABLET PO SCH (20:21)
[2020-01-05] MEDS: ENOXAPARIN 40 MG/0.4 ML SYRINGE SUBCUT SCH (20:26)
[2020-01-05] MEDS: ALUMINUM/MAGNES/SIMETH MAX STR 30 ML UDCUP PO PRN (21:07)
[2020-01-06] MEDS: LEVOTHYROXINE 175 MCG TABLET PO SCH (05:52)
[2020-01-06] MEDS: NICOTINE 7 MG/24 HR PATCH TRANSDERM PRN (08:41)
[2020-01-06] MEDS: LACTOBACILLUS ACIDOPHILUS/BULGARICUS CAPLET PO SCH (08:43)
[2020-01-06] MEDS: LOSARTAN 25 MG TABLET PO SCH (08:43)
[2020-01-06] MEDS: CHOLECALCIFEROL 400 UNIT TABLET PO SCH (08:43)
[2020-01-06] MEDS: MAGNESIUM CHLORIDE 64 MG TABLET PO SCH ×2 (08:43→20:33)
[2020-01-06] MEDS: GABAPENTIN 300 MG CAPSULE PO SCH ×3 (08:43→20:33)
[2020-01-06] MEDS: MULTIVITAMIN (CENTRUM) TABLET PO SCH (08:43)
[2020-01-06] MEDS: FLUTICASONE 50 MCG NASAL SPRAY 16 GM BOTTLE BOTH NARES SCH (08:44)
[2020-01-06] MEDS: SKIN HEALING OINT (AQUAPHOR) 50 GM TUBE TOP SCH (08:44)
[2020-01-06] MEDS: ALUMINUM/MAGNES/SIMETH MAX STR 30 ML UDCUP PO PRN ×2 (11:09→22:59)
[2020-01-06] MEDS: allopurinoL 300 MG TABLET PO SCH (20:33)
[2020-01-06] MEDS: diphenhydrAMINE CAP 25 MG CAPSULE PO PRN (20:34)
[2020-01-06] MEDS: ENOXAPARIN 40 MG/0.4 ML SYRINGE SUBCUT SCH (20:34)
[2020-01-07] MEDS: LEVOTHYROXINE 175 MCG TABLET PO SCH (05:52)
[2020-01-07] MEDS: SKIN HEALING OINT (AQUAPHOR) 50 GM TUBE TOP SCH (08:47)
[2020-01-07] MEDS: LACTOBACILLUS ACIDOPHILUS/BULGARICUS CAPLET PO SCH (08:47)
[2020-01-07] MEDS: LOSARTAN 25 MG TABLET PO SCH (08:47)
[2020-01-07] MEDS: GABAPENTIN 300 MG CAPSULE PO SCH ×3 (08:47→21:25)
[2020-01-07] MEDS: MULTIVITAMIN (CENTRUM) TABLET PO SCH (08:47)
[2020-01-07] MEDS: MAGNESIUM CHLORIDE 64 MG TABLET PO SCH ×2 (08:47→21:25)
[2020-01-07] MEDS: CHOLECALCIFEROL 400 UNIT TABLET PO SCH (08:47)
[2020-01-07] MEDS: FLUTICASONE 50 MCG NASAL SPRAY 16 GM BOTTLE BOTH NARES SCH (08:48)
[2020-01-07] MEDS: NICOTINE 7 MG/24 HR PATCH TRANSDERM PRN (16:49)
[2020-01-07] MEDS: diphenhydrAMINE CAP 25 MG CAPSULE PO PRN (21:25)
[2020-01-07] MEDS: allopurinoL 300 MG TABLET PO SCH (21:25)
[2020-01-07] MEDS: ENOXAPARIN 40 MG/0.4 ML SYRINGE SUBCUT SCH (21:25)
[2020-01-08] MEDS: LEVOTHYROXINE 175 MCG TABLET PO SCH (06:18)
[2020-01-08] MEDS: SKIN HEALING OINT (AQUAPHOR) 50 GM TUBE TOP SCH (09:11)
[2020-01-08] MEDS: MULTIVITAMIN (CENTRUM) TABLET PO SCH (09:23)
[2020-01-08] MEDS: LOSARTAN 25 MG TABLET PO SCH (09:23)
[2020-01-08] MEDS: FLUTICASONE 50 MCG NASAL SPRAY 16 GM BOTTLE BOTH NARES SCH (09:23)
[2020-01-08] MEDS: CHOLECALCIFEROL 400 UNIT TABLET PO SCH (09:23)
[2020-01-08] MEDS: GABAPENTIN 300 MG CAPSULE PO SCH ×3 (09:23→21:35)
[2020-01-08] MEDS: LACTOBACILLUS ACIDOPHILUS/BULGARICUS CAPLET PO SCH (09:23)
[2020-01-08] MEDS: MAGNESIUM CHLORIDE 64 MG TABLET PO SCH ×2 (09:23→21:35)
[2020-01-08] MEDS: NICOTINE 7 MG/24 HR PATCH TRANSDERM PRN (16:09)
[2020-01-08] MEDS: allopurinoL 300 MG TABLET PO SCH (21:35)
[2020-01-08] MEDS: ENOXAPARIN 40 MG/0.4 ML SYRINGE SUBCUT SCH (21:35)
[2020-01-08] MEDS: diphenhydrAMINE CAP 25 MG CAPSULE PO PRN (21:35)
[2020-01-09] MEDS: LEVOTHYROXINE 175 MCG TABLET PO SCH (05:49)
[2020-01-09] MEDS: LACTOBACILLUS ACIDOPHILUS/BULGARICUS CAPLET PO SCH (08:19)
[2020-01-09] MEDS: CHOLECALCIFEROL 400 UNIT TABLET PO SCH (08:19)
[2020-01-09] MEDS: MAGNESIUM CHLORIDE 64 MG TABLET PO SCH ×2 (08:19→21:01)
[2020-01-09] MEDS: FLUTICASONE 50 MCG NASAL SPRAY 16 GM BOTTLE BOTH NARES SCH (08:20)
[2020-01-09] MEDS: MULTIVITAMIN (CENTRUM) TABLET PO SCH (08:20)
[2020-01-09] MEDS: LOSARTAN 25 MG TABLET PO SCH (08:20)
[2020-01-09] MEDS: GABAPENTIN 300 MG CAPSULE PO SCH (08:20)
[2020-01-09] MEDS: SKIN HEALING OINT (AQUAPHOR) 50 GM TUBE TOP SCH (08:20)
[2020-01-09] MEDS: MELOXICAM 7.5 MG TABLET PO SCH (10:05)
[2020-01-09] MEDS: GABAPENTIN 600 MG TABLET PO SCH ×2 (15:06→21:01)
[2020-01-09] MEDS: NICOTINE 7 MG/24 HR PATCH TRANSDERM PRN (16:09)
[2020-01-09] MEDS: ENOXAPARIN 40 MG/0.4 ML SYRINGE SUBCUT SCH (21:01)
[2020-01-09] MEDS: allopurinoL 300 MG TABLET PO SCH (21:01)
[2020-01-09] MEDS: ACETAMINOPHEN 325 MG TABLET PO PRN (23:13)
[2020-01-09] MEDS: ALUMINUM/MAGNES/SIMETH MAX STR 30 ML UDCUP PO PRN (23:13)
[2020-01-10] MEDS: SIMETHICONE CHEW 125 MG TABLET PO PRN (05:15)
[2020-01-10] MEDS: LEVOTHYROXINE 175 MCG TABLET PO SCH (06:37)
[2020-01-10] MEDS: LOSARTAN 25 MG TABLET PO SCH (08:47)
[2020-01-10] MEDS: MELOXICAM 7.5 MG TABLET PO SCH (08:47)
[2020-01-10] MEDS: CHOLECALCIFEROL 400 UNIT TABLET PO SCH (08:47)
[2020-01-10] MEDS: MAGNESIUM CHLORIDE 64 MG TABLET PO SCH ×2 (08:47→20:22)
[2020-01-10] MEDS: LACTOBACILLUS ACIDOPHILUS/BULGARICUS CAPLET PO SCH (08:47)
[2020-01-10] MEDS: MULTIVITAMIN (CENTRUM) TABLET PO SCH (08:47)
[2020-01-10] MEDS: GABAPENTIN 600 MG TABLET PO SCH (08:48)
[2020-01-10] MEDS: SKIN HEALING OINT (AQUAPHOR) 50 GM TUBE TOP SCH (08:49)
[2020-01-10] MEDS: FLUTICASONE 50 MCG NASAL SPRAY 16 GM BOTTLE BOTH NARES SCH (08:49)
[2020-01-10] MEDS ORDERED: ZALEPLON 5 MG CAPSULE PO PRN (09:22)
[2020-01-10] MEDS: GABAPENTIN 300 MG CAPSULE PO SCH ×2 (14:49→20:22)
[2020-01-10] MEDS: NICOTINE 7 MG/24 HR PATCH TRANSDERM PRN (15:09)
[2020-01-10] MEDS: ENOXAPARIN 40 MG/0.4 ML SYRINGE SUBCUT SCH (20:22)
[2020-01-10] MEDS: ACETAMINOPHEN 325 MG TABLET PO PRN (20:23)
[2020-01-10] MEDS: allopurinoL 300 MG TABLET PO SCH (20:23)
[2020-01-10] MEDS: diphenhydrAMINE CAP 25 MG CAPSULE PO PRN (20:23)
[2020-01-10] MEDS: ALUMINUM/MAGNES/SIMETH MAX STR 30 ML UDCUP PO PRN (23:35)
[2020-01-11] MEDS ORDERED: ZALEPLON 5 MG CAPSULE PO ONE (01:06)
[2020-01-11] MEDS: SIMETHICONE CHEW 125 MG TABLET PO PRN (01:15)
[2020-01-11] MEDS: diphenhydrAMINE CAP 25 MG CAPSULE PO PRN ×2 (01:23→21:03)
[2020-01-11] MEDS: LEVOTHYROXINE 175 MCG TABLET PO SCH (05:40)
[2020-01-11 07:24] LABS: Calcium 9.3 MG/DL (8.5-10.1); Osmolality,Calculated 279.4 MOS/KG (273-304)
[2020-01-11] MEDS: MAGNESIUM CHLORIDE 64 MG TABLET PO SCH ×2 (08:12→21:04)
[2020-01-11] MEDS: MELOXICAM 7.5 MG TABLET PO SCH (08:12)
[2020-01-11] MEDS: MULTIVITAMIN (CENTRUM) TABLET PO SCH (08:13)
[2020-01-11] MEDS: LACTOBACILLUS ACIDOPHILUS/BULGARICUS CAPLET PO SCH (08:13)
[2020-01-11] MEDS: CHOLECALCIFEROL 400 UNIT TABLET PO SCH (08:13)
[2020-01-11] MEDS: LOSARTAN 25 MG TABLET PO SCH (08:13)
[2020-01-11] MEDS: GABAPENTIN 300 MG CAPSULE PO SCH ×3 (08:13→21:03)
[2020-01-11] MEDS: FLUTICASONE 50 MCG NASAL SPRAY 16 GM BOTTLE BOTH NARES SCH (08:24)
[2020-01-11] MEDS: SKIN HEALING OINT (AQUAPHOR) 50 GM TUBE TOP SCH (08:25)
[2020-01-11] MEDS: NICOTINE 7 MG/24 HR PATCH TRANSDERM PRN (12:09)
[2020-01-11] MEDS: ENOXAPARIN 40 MG/0.4 ML SYRINGE SUBCUT SCH (21:03)
[2020-01-11] MEDS: allopurinoL 300 MG TABLET PO SCH (21:03)
[2020-01-12] MEDS: LEVOTHYROXINE 175 MCG TABLET PO SCH (06:05)
[2020-01-12] MEDS: CHOLECALCIFEROL 400 UNIT TABLET PO SCH (10:11)
[2020-01-12] MEDS: MELOXICAM 7.5 MG TABLET PO SCH (10:11)
[2020-01-12] MEDS: LACTOBACILLUS ACIDOPHILUS/BULGARICUS CAPLET PO SCH (10:11)
[2020-01-12] MEDS: GABAPENTIN 300 MG CAPSULE PO SCH ×3 (10:11→20:53)
[2020-01-12] MEDS: FLUTICASONE 50 MCG NASAL SPRAY 16 GM BOTTLE BOTH NARES SCH (10:12)
[2020-01-12] MEDS: SKIN HEALING OINT (AQUAPHOR) 50 GM TUBE TOP SCH (10:12)
[2020-01-12] MEDS: LOSARTAN 25 MG TABLET PO SCH (10:12)
[2020-01-12] MEDS: MULTIVITAMIN (CENTRUM) TABLET PO SCH (10:12)
[2020-01-12] MEDS: NICOTINE 7 MG/24 HR PATCH TRANSDERM PRN (10:15)
[2020-01-12] MEDS: MAGNESIUM CHLORIDE 64 MG TABLET PO SCH (11:21)
[2020-01-12] MEDS: diphenhydrAMINE CAP 25 MG CAPSULE PO PRN (20:52)
[2020-01-12] MEDS: ENOXAPARIN 40 MG/0.4 ML SYRINGE SUBCUT SCH (20:53)
[2020-01-12] MEDS: allopurinoL 300 MG TABLET PO SCH (20:53)
[2020-01-13] MEDS: LEVOTHYROXINE 175 MCG TABLET PO SCH (06:25)
[2020-01-13] MEDS: CHOLECALCIFEROL 400 UNIT TABLET PO SCH (09:21)
[2020-01-13] MEDS: MELOXICAM 7.5 MG TABLET PO SCH (09:21)
[2020-01-13] MEDS: GABAPENTIN 300 MG CAPSULE PO SCH ×3 (09:21→21:20)
[2020-01-13] MEDS: LACTOBACILLUS ACIDOPHILUS/BULGARICUS CAPLET PO SCH (09:21)
[2020-01-13] MEDS: MAGNESIUM CHLORIDE 64 MG TABLET PO SCH (09:21)
[2020-01-13] MEDS: MULTIVITAMIN (CENTRUM) TABLET PO SCH (09:21)
[2020-01-13] MEDS: FLUTICASONE 50 MCG NASAL SPRAY 16 GM BOTTLE BOTH NARES SCH (09:22)
[2020-01-13] MEDS: SKIN HEALING OINT (AQUAPHOR) 50 GM TUBE TOP SCH (09:22)
[2020-01-13] MEDS: LOSARTAN 25 MG TABLET PO SCH (09:22)
[2020-01-13] MEDS: ENOXAPARIN 40 MG/0.4 ML SYRINGE SUBCUT SCH (21:19)
[2020-01-13] MEDS: diphenhydrAMINE CAP 25 MG CAPSULE PO PRN (21:20)
[2020-01-13] MEDS: allopurinoL 300 MG TABLET PO SCH (21:20)
[2020-01-14] MEDS: LEVOTHYROXINE 175 MCG TABLET PO SCH (05:58)
[2020-01-14] MEDS: GABAPENTIN 300 MG CAPSULE PO SCH ×3 (10:01→20:58)
[2020-01-14] MEDS: LACTOBACILLUS ACIDOPHILUS/BULGARICUS CAPLET PO SCH (10:01)
[2020-01-14] MEDS: MULTIVITAMIN (CENTRUM) TABLET PO SCH (10:02)
[2020-01-14] MEDS: LOSARTAN 25 MG TABLET PO SCH (10:02)
[2020-01-14] MEDS: MAGNESIUM CHLORIDE 64 MG TABLET PO SCH (10:02)
[2020-01-14] MEDS: CHOLECALCIFEROL 400 UNIT TABLET PO SCH (10:02)
[2020-01-14] MEDS: MELOXICAM 7.5 MG TABLET PO SCH (10:02)
[2020-01-14] MEDS: SKIN HEALING OINT (AQUAPHOR) 50 GM TUBE TOP SCH (10:03)
[2020-01-14] MEDS: FLUTICASONE 50 MCG NASAL SPRAY 16 GM BOTTLE BOTH NARES SCH (10:03)
[2020-01-14] MEDS: allopurinoL 300 MG TABLET PO SCH (20:59)
[2020-01-14] MEDS: ENOXAPARIN 40 MG/0.4 ML SYRINGE SUBCUT SCH (20:59)
[2020-01-14] MEDS: diphenhydrAMINE CAP 25 MG CAPSULE PO PRN (20:59)
[2020-01-15] MEDS: LEVOTHYROXINE 175 MCG TABLET PO SCH (05:57)
[2020-01-15] MEDS: GABAPENTIN 300 MG CAPSULE PO SCH ×3 (08:14→21:05)
[2020-01-15] MEDS: LACTOBACILLUS ACIDOPHILUS/BULGARICUS CAPLET PO SCH (08:15)
[2020-01-15] MEDS: MAGNESIUM CHLORIDE 64 MG TABLET PO SCH (08:15)
[2020-01-15] MEDS: LOSARTAN 25 MG TABLET PO SCH (08:15)
[2020-01-15] MEDS: MULTIVITAMIN (CENTRUM) TABLET PO SCH (08:15)
[2020-01-15] MEDS: CHOLECALCIFEROL 400 UNIT TABLET PO SCH (08:15)
[2020-01-15] MEDS: MELOXICAM 7.5 MG TABLET PO SCH (08:15)
[2020-01-15] MEDS: NICOTINE 7 MG/24 HR PATCH TRANSDERM PRN (08:15)
[2020-01-15] MEDS: SKIN HEALING OINT (AQUAPHOR) 50 GM TUBE TOP SCH (08:16)
[2020-01-15] MEDS: FLUTICASONE 50 MCG NASAL SPRAY 16 GM BOTTLE BOTH NARES SCH (08:16)
[2020-01-15] MEDS: allopurinoL 300 MG TABLET PO SCH (21:05)
[2020-01-15] MEDS: diphenhydrAMINE CAP 25 MG CAPSULE PO PRN (21:06)
[2020-01-15] MEDS: ENOXAPARIN 40 MG/0.4 ML SYRINGE SUBCUT SCH (21:06)
[2020-01-16] MEDS: LEVOTHYROXINE 175 MCG TABLET PO SCH (06:23)
[2020-01-16] MEDS: GABAPENTIN 300 MG CAPSULE PO SCH ×3 (10:18→20:47)
[2020-01-16] MEDS: LACTOBACILLUS ACIDOPHILUS/BULGARICUS CAPLET PO SCH (10:18)
[2020-01-16] MEDS: FLUTICASONE 50 MCG NASAL SPRAY 16 GM BOTTLE BOTH NARES SCH (10:18)
[2020-01-16] MEDS: SKIN HEALING OINT (AQUAPHOR) 50 GM TUBE TOP SCH (10:18)
[2020-01-16] MEDS: MULTIVITAMIN (CENTRUM) TABLET PO SCH (10:19)
[2020-01-16] MEDS: CHOLECALCIFEROL 400 UNIT TABLET PO SCH (10:19)
[2020-01-16] MEDS: MELOXICAM 7.5 MG TABLET PO SCH (10:19)
[2020-01-16] MEDS: MAGNESIUM CHLORIDE 64 MG TABLET PO SCH (10:19)
[2020-01-16] MEDS: NICOTINE 7 MG/24 HR PATCH TRANSDERM PRN (10:23)
[2020-01-16] MEDS: LOSARTAN 25 MG TABLET PO SCH (10:23)
[2020-01-16] MEDS: allopurinoL 300 MG TABLET PO SCH (20:47)
[2020-01-16] MEDS: diphenhydrAMINE CAP 25 MG CAPSULE PO PRN (20:47)
[2020-01-16] MEDS: ENOXAPARIN 40 MG/0.4 ML SYRINGE SUBCUT SCH (20:48)
[2020-01-17] MEDS: LEVOTHYROXINE 175 MCG TABLET PO SCH (06:54)
[2020-01-17] MEDS: MULTIVITAMIN (CENTRUM) TABLET PO SCH (08:18)
[2020-01-17] MEDS: LACTOBACILLUS ACIDOPHILUS/BULGARICUS CAPLET PO SCH (08:18)
[2020-01-17] MEDS: GABAPENTIN 300 MG CAPSULE PO SCH ×3 (08:18→20:56)
[2020-01-17] MEDS: CHOLECALCIFEROL 400 UNIT TABLET PO SCH (08:18)
[2020-01-17] MEDS: MELOXICAM 7.5 MG TABLET PO SCH (08:18)
[2020-01-17] MEDS: FLUTICASONE 50 MCG NASAL SPRAY 16 GM BOTTLE BOTH NARES SCH (08:19)
[2020-01-17] MEDS: MAGNESIUM CHLORIDE 64 MG TABLET PO SCH (08:19)
[2020-01-17] MEDS: NICOTINE 7 MG/24 HR PATCH TRANSDERM PRN (08:19)
[2020-01-17] MEDS: SKIN HEALING OINT (AQUAPHOR) 50 GM TUBE TOP SCH (08:19)
[2020-01-17] MEDS: LOSARTAN 25 MG TABLET PO SCH (08:19)
[2020-01-17] MEDS: diphenhydrAMINE CAP 25 MG CAPSULE PO PRN (20:56)
[2020-01-17] MEDS: allopurinoL 300 MG TABLET PO SCH (20:56)
[2020-01-17] MEDS: ENOXAPARIN 40 MG/0.4 ML SYRINGE SUBCUT SCH (20:59)
[2020-01-18] MEDS: LEVOTHYROXINE 175 MCG TABLET PO SCH (06:28)
[2020-01-18] MEDS: SKIN HEALING OINT (AQUAPHOR) 50 GM TUBE TOP SCH (10:36)
[2020-01-18] MEDS: LACTOBACILLUS ACIDOPHILUS/BULGARICUS CAPLET PO SCH (10:37)
[2020-01-18] MEDS: MULTIVITAMIN (CENTRUM) TABLET PO SCH (10:37)
[2020-01-18] MEDS: MELOXICAM 7.5 MG TABLET PO SCH (10:37)
[2020-01-18] MEDS: FLUTICASONE 50 MCG NASAL SPRAY 16 GM BOTTLE BOTH NARES SCH (10:37)
[2020-01-18] MEDS: LOSARTAN 25 MG TABLET PO SCH (10:37)
[2020-01-18] MEDS: CHOLECALCIFEROL 400 UNIT TABLET PO SCH (10:38)
[2020-01-18] MEDS: MAGNESIUM CHLORIDE 64 MG TABLET PO SCH (10:38)
[2020-01-18] MEDS: GABAPENTIN 300 MG CAPSULE PO SCH ×3 (10:38→20:48)
[2020-01-18] MEDS: NICOTINE 7 MG/24 HR PATCH TRANSDERM PRN (10:39)
[2020-01-18] MEDS ORDERED: ACETAMINOPHEN 325 MG TABLET PO PRN (11:22)
[2020-01-18] MEDS: allopurinoL 300 MG TABLET PO SCH (20:49)
[2020-01-18] MEDS: APIXABAN 2.5 MG TABLET PO SCH (20:49)
[2020-01-18] MEDS: diphenhydrAMINE CAP 25 MG CAPSULE PO PRN (20:49)
[2020-01-19] MEDS: LEVOTHYROXINE 175 MCG TABLET PO SCH (06:10)
[2020-01-19] MEDS: SKIN HEALING OINT (AQUAPHOR) 50 GM TUBE TOP SCH (09:19)
[2020-01-19] MEDS: FLUTICASONE 50 MCG NASAL SPRAY 16 GM BOTTLE BOTH NARES SCH (09:19)
[2020-01-19] MEDS: GABAPENTIN 300 MG CAPSULE PO SCH ×3 (09:19→20:53)
[2020-01-19] MEDS: CHOLECALCIFEROL 400 UNIT TABLET PO SCH (09:20)
[2020-01-19] MEDS: MELOXICAM 7.5 MG TABLET PO SCH (09:20)
[2020-01-19] MEDS: MAGNESIUM CHLORIDE 64 MG TABLET PO SCH (09:20)
[2020-01-19] MEDS: LACTOBACILLUS ACIDOPHILUS/BULGARICUS CAPLET PO SCH (09:20)
[2020-01-19] MEDS: LOSARTAN 25 MG TABLET PO SCH (09:20)
[2020-01-19] MEDS: MULTIVITAMIN (CENTRUM) TABLET PO SCH (09:20)
[2020-01-19] MEDS: APIXABAN 2.5 MG TABLET PO SCH ×2 (09:24→20:53)
[2020-01-19] MEDS: NICOTINE 7 MG/24 HR PATCH TRANSDERM PRN (10:12)
[2020-01-19] MEDS: diphenhydrAMINE CAP 25 MG CAPSULE PO PRN (20:53)
[2020-01-19] MEDS: allopurinoL 300 MG TABLET PO SCH (20:53)
[2020-01-19] MEDS ORDERED: IBUPROFEN 800 MG TABLET PO PRN (21:21)
[2020-01-20] MEDS: MULTIVITAMIN (CENTRUM) TABLET PO SCH (09:22)
[2020-01-20] MEDS: MAGNESIUM CHLORIDE 64 MG TABLET PO SCH (09:22)
[2020-01-20] MEDS: LOSARTAN 25 MG TABLET PO SCH (09:22)
[2020-01-20] MEDS: GABAPENTIN 300 MG CAPSULE PO SCH ×3 (09:23→20:52)
[2020-01-20] MEDS: APIXABAN 2.5 MG TABLET PO SCH ×2 (09:23→20:53)
[2020-01-20] MEDS: CHOLECALCIFEROL 400 UNIT TABLET PO SCH (09:23)
[2020-01-20] MEDS: MELOXICAM 7.5 MG TABLET PO SCH (09:24)
[2020-01-20] MEDS: IBUPROFEN 800 MG TABLET PO SCH ×2 (09:54→20:53)
[2020-01-20] MEDS: LACTOBACILLUS ACIDOPHILUS/BULGARICUS CAPLET PO SCH (09:54)
[2020-01-20] MEDS: FLUTICASONE 50 MCG NASAL SPRAY 16 GM BOTTLE BOTH NARES SCH (10:33)
[2020-01-20] MEDS: NICOTINE 7 MG/24 HR PATCH TRANSDERM PRN (10:34)
[2020-01-20] MEDS: LEVOTHYROXINE 175 MCG TABLET PO SCH (11:16)
[2020-01-20] MEDS: ALUMINUM/MAGNES/SIMETH MAX STR 30 ML UDCUP PO PRN ×2 (14:21→23:49)
[2020-01-20] MEDS: SKIN HEALING OINT (AQUAPHOR) 50 GM TUBE TOP SCH (17:01)
[2020-01-20] MEDS: diphenhydrAMINE CAP 25 MG CAPSULE PO PRN (20:52)
[2020-01-20] MEDS: allopurinoL 300 MG TABLET PO SCH (20:53)
[2020-01-21] MEDS: ONDANSETRON ODT 4 MG TABLET PO PRN (01:32)
[2020-01-21] MEDS: diphenhydrAMINE CAP 25 MG CAPSULE PO PRN ×2 (02:40→21:33)
[2020-01-21] MEDS: LEVOTHYROXINE 175 MCG TABLET PO SCH (05:29)
[2020-01-21] MEDS: NICOTINE 7 MG/24 HR PATCH TRANSDERM PRN (09:24)
[2020-01-21] MEDS: IBUPROFEN 800 MG TABLET PO SCH ×2 (09:26→20:16)
[2020-01-21] MEDS: CHOLECALCIFEROL 400 UNIT TABLET PO SCH (09:26)
[2020-01-21] MEDS: GABAPENTIN 300 MG CAPSULE PO SCH ×3 (09:26→21:32)
[2020-01-21] MEDS: LACTOBACILLUS ACIDOPHILUS/BULGARICUS CAPLET PO SCH (09:26)
[2020-01-21] MEDS: MULTIVITAMIN (CENTRUM) TABLET PO SCH (09:28)
[2020-01-21] MEDS: LOSARTAN 25 MG TABLET PO SCH (09:28)
[2020-01-21] MEDS: MAGNESIUM CHLORIDE 64 MG TABLET PO SCH (09:28)
[2020-01-21] MEDS: APIXABAN 2.5 MG TABLET PO SCH ×2 (09:28→21:32)
[2020-01-21] MEDS: traMADol 50 MG TABLET PO PRN ×2 (13:37→21:32)
[2020-01-21] MEDS: SKIN HEALING OINT (AQUAPHOR) 50 GM TUBE TOP SCH (13:39)
[2020-01-21] MEDS: FLUTICASONE 50 MCG NASAL SPRAY 16 GM BOTTLE BOTH NARES SCH (13:39)
[2020-01-21] MEDS: allopurinoL 300 MG TABLET PO SCH (21:32)
[2020-01-22] MEDS: LEVOTHYROXINE 175 MCG TABLET PO SCH (06:25)
[2020-01-22] MEDS: traMADol 50 MG TABLET PO PRN ×2 (06:25→16:06)
[2020-01-22] MEDS: MULTIVITAMIN (CENTRUM) TABLET PO SCH (08:57)
[2020-01-22] MEDS: MAGNESIUM CHLORIDE 64 MG TABLET PO SCH (08:59)
[2020-01-22] MEDS: LACTOBACILLUS ACIDOPHILUS/BULGARICUS CAPLET PO SCH (09:00)
[2020-01-22] MEDS: LOSARTAN 25 MG TABLET PO SCH (09:00)
[2020-01-22] MEDS: NICOTINE 7 MG/24 HR PATCH TRANSDERM PRN (09:00)
[2020-01-22] MEDS: IBUPROFEN 800 MG TABLET PO SCH ×2 (09:00→20:17)
[2020-01-22] MEDS: GABAPENTIN 300 MG CAPSULE PO SCH ×3 (09:00→20:17)
[2020-01-22] MEDS: APIXABAN 2.5 MG TABLET PO SCH ×2 (09:00→20:17)
[2020-01-22] MEDS: CHOLECALCIFEROL 400 UNIT TABLET PO SCH (09:00)
[2020-01-22] MEDS: SKIN HEALING OINT (AQUAPHOR) 50 GM TUBE TOP SCH (09:01)
[2020-01-22] MEDS: FLUTICASONE 50 MCG NASAL SPRAY 16 GM BOTTLE BOTH NARES SCH (09:01)
[2020-01-22] MEDS ORDERED: DIAZEPAM 2 MG TABLET PO PRN (11:17)
[2020-01-22] MEDS: diphenhydrAMINE CAP 25 MG CAPSULE PO PRN (20:17)
[2020-01-22] MEDS: allopurinoL 300 MG TABLET PO SCH (20:17)
[2020-01-22] MEDS: MELATONIN 3 MG TABLET PO PRN (20:17)
[2020-01-23] MEDS: LEVOTHYROXINE 175 MCG TABLET PO SCH (06:07)
[2020-01-23] MEDS: SKIN HEALING OINT (AQUAPHOR) 50 GM TUBE TOP SCH (09:04)
[2020-01-23] MEDS: GABAPENTIN 300 MG CAPSULE PO SCH ×3 (09:04→21:07)
[2020-01-23] MEDS: IBUPROFEN 800 MG TABLET PO SCH ×2 (09:05→21:06)
[2020-01-23] MEDS: MAGNESIUM CHLORIDE 64 MG TABLET PO SCH (09:05)
[2020-01-23] MEDS: LOSARTAN 25 MG TABLET PO SCH (09:05)
[2020-01-23] MEDS: LACTOBACILLUS ACIDOPHILUS/BULGARICUS CAPLET PO SCH (09:05)
[2020-01-23] MEDS: CHOLECALCIFEROL 400 UNIT TABLET PO SCH (09:05)
[2020-01-23] MEDS: APIXABAN 2.5 MG TABLET PO SCH ×2 (09:05→21:06)
[2020-01-23] MEDS: MULTIVITAMIN (CENTRUM) TABLET PO SCH (09:05)
[2020-01-23] MEDS: FLUTICASONE 50 MCG NASAL SPRAY 16 GM BOTTLE BOTH NARES SCH (09:06)
[2020-01-23] MEDS: NICOTINE 7 MG/24 HR PATCH TRANSDERM PRN (09:06)
[2020-01-23] MEDS: traMADol 50 MG TABLET PO PRN ×2 (14:28→22:24)
[2020-01-23] MEDS: MELATONIN 3 MG TABLET PO PRN (21:05)
[2020-01-23] MEDS: diphenhydrAMINE CAP 25 MG CAPSULE PO PRN (21:06)
[2020-01-23] MEDS: allopurinoL 300 MG TABLET PO SCH (21:06)
[2020-01-24] MEDS: LEVOTHYROXINE 175 MCG TABLET PO SCH ×2 (07:38→07:49)
[2020-01-24] MEDS: traMADol 50 MG TABLET PO PRN ×2 (07:38→15:39)
[2020-01-24] MEDS: MULTIVITAMIN (CENTRUM) TABLET PO SCH (08:21)
[2020-01-24] MEDS: GABAPENTIN 300 MG CAPSULE PO SCH ×3 (08:21→20:42)
[2020-01-24] MEDS: CHOLECALCIFEROL 400 UNIT TABLET PO SCH (08:21)
[2020-01-24] MEDS: LACTOBACILLUS ACIDOPHILUS/BULGARICUS CAPLET PO SCH (08:21)
[2020-01-24] MEDS: MAGNESIUM CHLORIDE 64 MG TABLET PO SCH (08:21)
[2020-01-24] MEDS: IBUPROFEN 800 MG TABLET PO SCH ×2 (08:22→20:41)
[2020-01-24] MEDS: LOSARTAN 25 MG TABLET PO SCH (08:22)
[2020-01-24] MEDS: FLUTICASONE 50 MCG NASAL SPRAY 16 GM BOTTLE BOTH NARES SCH (08:22)
[2020-01-24] MEDS: APIXABAN 2.5 MG TABLET PO SCH ×2 (08:22→20:41)
[2020-01-24] MEDS: SKIN HEALING OINT (AQUAPHOR) 50 GM TUBE TOP SCH (08:23)
[2020-01-24] MEDS: NICOTINE 7 MG/24 HR PATCH TRANSDERM PRN (08:31)
[2020-01-24] MEDS: diphenhydrAMINE CAP 25 MG CAPSULE PO PRN (20:41)
[2020-01-24] MEDS: allopurinoL 300 MG TABLET PO SCH (20:41)
[2020-01-24] MEDS: MELATONIN 3 MG TABLET PO PRN (20:42)
[2020-01-25] MEDS: LEVOTHYROXINE 175 MCG TABLET PO SCH (06:53)
[2020-01-25] MEDS: traMADol 50 MG TABLET PO PRN ×3 (07:06→21:42)
[2020-01-25] MEDS: FLUTICASONE 50 MCG NASAL SPRAY 16 GM BOTTLE BOTH NARES SCH (08:29)
[2020-01-25] MEDS: LACTOBACILLUS ACIDOPHILUS/BULGARICUS CAPLET PO SCH (08:30)
[2020-01-25] MEDS: IBUPROFEN 800 MG TABLET PO SCH (08:31)
[2020-01-25] MEDS: MULTIVITAMIN (CENTRUM) TABLET PO SCH (08:31)
[2020-01-25] MEDS: MAGNESIUM CHLORIDE 64 MG TABLET PO SCH (08:31)
[2020-01-25] MEDS: CHOLECALCIFEROL 400 UNIT TABLET PO SCH (08:31)
[2020-01-25] MEDS: APIXABAN 2.5 MG TABLET PO SCH ×2 (08:32→20:18)
[2020-01-25] MEDS: LOSARTAN 25 MG TABLET PO SCH (08:32)
[2020-01-25] MEDS: SKIN HEALING OINT (AQUAPHOR) 50 GM TUBE TOP SCH (08:32)
[2020-01-25] MEDS: NICOTINE 7 MG/24 HR PATCH TRANSDERM PRN (08:35)
[2020-01-25] MEDS: GABAPENTIN 300 MG CAPSULE PO SCH ×3 (08:38→20:19)
[2020-01-25] MEDS: allopurinoL 300 MG TABLET PO SCH (20:19)
[2020-01-25] MEDS: SENNA 8.6 MG TABLET PO SCH (20:20)
[2020-01-25] MEDS: IBUPROFEN 600 MG TABLET PO PRN (20:29)
[2020-01-25] MEDS: MELATONIN 3 MG TABLET PO PRN (20:30)
[2020-01-26 05:13] LABS: Basophils # 0.1 10*3/uL (0.0-0.2); Eosinophils # 0.1 10*3/uL (0.0-0.87); Eosinophils % 2.3 % (0.00-10.9); Hematocrit 39.2 VOL% (35.7-47.0); Hemoglobin 12.2 GM/DL (12.0-16.0); Immature Granulocytes Absolute 0.03 #; Lymphocytes # 1.3 10*3/uL (1.4-4.0); Lymphocytes % 41.4 % (21.3-54.2); Mean Corpuscular HGB Conc 31.1 GM/DL (32-36); Mean Corpuscular Volume 98.7 FL (87-102); Mean Platelet Volume 11.1 FL (9.6-12.0); Monocytes % 11.8 % (1.7-12.7); Neutrophils % 41.5 % (38.7-73.9); Platelet Count 166 T/CUMM (130-400); Red Blood Count 3.97 MC/CUMM (3.8-5.5); Red Cell Distribution Width 16.1 % (9.3-17.3)
[2020-01-26 05:31] LABS: Osmolality,Calculated 282.4 MOS/KG (273-304)
[2020-01-26 05:38] LABS: Band Neutrophils 1 % (0-10); Eosinophils 3 % (0-10); Hypochromasia 1+; Lymphocytes 40 % (20-55); Microcytosis Slight; Platelet Estimate Adequate; Segmented Neutrophils 50 % (50-85); Total Cells Counted 100
[2020-01-26] MEDS: LEVOTHYROXINE 175 MCG TABLET PO SCH (05:58)
[2020-01-26] MEDS: traMADol 50 MG TABLET PO PRN ×3 (06:01→20:32)
[2020-01-26] MEDS: CHOLECALCIFEROL 400 UNIT TABLET PO SCH (08:41)
[2020-01-26] MEDS: LACTOBACILLUS ACIDOPHILUS/BULGARICUS CAPLET PO SCH (08:41)
[2020-01-26] MEDS: SKIN HEALING OINT (AQUAPHOR) 50 GM TUBE TOP SCH (08:42)
[2020-01-26] MEDS: MAGNESIUM CHLORIDE 64 MG TABLET PO SCH (08:42)
[2020-01-26] MEDS: APIXABAN 2.5 MG TABLET PO SCH ×2 (08:42→20:30)
[2020-01-26] MEDS: MULTIVITAMIN (CENTRUM) TABLET PO SCH (08:42)
[2020-01-26] MEDS: GABAPENTIN 300 MG CAPSULE PO SCH ×3 (08:42→20:30)
[2020-01-26] MEDS: FLUTICASONE 50 MCG NASAL SPRAY 16 GM BOTTLE BOTH NARES SCH (08:42)
[2020-01-26] MEDS: LOSARTAN 25 MG TABLET PO SCH (08:43)
[2020-01-26] MEDS: NICOTINE 21 MG/24 HR PATCH TRANSDERM PRN (09:22)
[2020-01-26] MEDS: allopurinoL 300 MG TABLET PO SCH (20:31)
[2020-01-26] MEDS: diphenhydrAMINE CAP 25 MG CAPSULE PO PRN (20:31)
[2020-01-26] MEDS: SENNA 8.6 MG TABLET PO SCH (20:31)
[2020-01-26] MEDS: MELATONIN 3 MG TABLET PO PRN (23:52)
[2020-01-27] MEDS: LEVOTHYROXINE 175 MCG TABLET PO SCH (05:52)
[2020-01-27] MEDS: traMADol 50 MG TABLET PO PRN ×3 (05:54→20:13)
[2020-01-27] MEDS: CHOLECALCIFEROL 1,000 UNIT TABLET PO SCH (08:48)
[2020-01-27] MEDS: MAGNESIUM CHLORIDE 64 MG TABLET PO SCH (08:48)
[2020-01-27] MEDS: SKIN HEALING OINT (AQUAPHOR) 50 GM TUBE TOP SCH (08:49)
[2020-01-27] MEDS: FLUTICASONE 50 MCG NASAL SPRAY 16 GM BOTTLE BOTH NARES SCH (08:49)
[2020-01-27] MEDS: GABAPENTIN 300 MG CAPSULE PO SCH ×3 (08:49→20:13)
[2020-01-27] MEDS: NICOTINE 21 MG/24 HR PATCH TRANSDERM PRN (08:49)
[2020-01-27] MEDS: LOSARTAN 25 MG TABLET PO SCH (08:49)
[2020-01-27] MEDS: MULTIVITAMIN (CENTRUM) TABLET PO SCH (08:49)
[2020-01-27] MEDS: LACTOBACILLUS ACIDOPHILUS/BULGARICUS CAPLET PO SCH (08:49)
[2020-01-27] MEDS: APIXABAN 2.5 MG TABLET PO SCH ×2 (08:49→20:13)
[2020-01-27] MEDS: allopurinoL 300 MG TABLET PO SCH (20:13)
[2020-01-27] MEDS: diphenhydrAMINE CAP 25 MG CAPSULE PO PRN (20:13)
[2020-01-27] MEDS: MELATONIN 3 MG TABLET PO PRN (20:14)
[2020-01-27] MEDS: SENNA 8.6 MG TABLET PO SCH (20:16)
[2020-01-28] MEDS: LEVOTHYROXINE 175 MCG TABLET PO SCH (06:00)
[2020-01-28] MEDS: traMADol 50 MG TABLET PO PRN ×3 (06:03→21:23)
[2020-01-28 06:35] LABS: Basophils # 0.1 10*3/uL (0.0-0.2); Basophils % 2.1 % (0.0-0.8); Eosinophils # 0.1 10*3/uL (0.0-0.87); Eosinophils % 2.4 % (0.00-10.9); Hematocrit 40.3 VOL% (35.7-47.0); Hemoglobin 12.3 GM/DL (12.0-16.0); Immature Granulocytes % 0.6 %; Immature Granulocytes Absolute 0.02 #; Lymphocytes # 1.3 10*3/uL (1.4-4.0); Lymphocytes % 37.3 % (21.3-54.2); Mean Corpuscular HGB Conc 30.5 GM/DL (32-36); Mean Platelet Volume 11.5 FL (9.6-12.0); Monocytes % 10.4 % (1.7-12.7); Neutrophils % 47.2 % (38.7-73.9); Platelet Count 164 T/CUMM (130-400); Red Blood Count 4.03 MC/CUMM (3.8-5.5); Red Cell Distribution Width 16.3 % (9.3-17.3); White Blood Count 3.4 T/CUMM (4-12)
[2020-01-28 06:54] LABS: Calcium 9.3 MG/DL (8.5-10.1); Osmolality,Calculated 280.3 MOS/KG (273-304)
[2020-01-28 06:57] LABS: Band Neutrophils 5 % (0-10); Eosinophils 1 % (0-10); Hypochromasia 1+; Lymphocytes 29 % (20-55); Microcytosis 1+; Platelet Estimate Adequate; Segmented Neutrophils 56 % (50-85); Total Cells Counted 100
[2020-01-28] MEDS: SKIN HEALING OINT (AQUAPHOR) 50 GM TUBE TOP SCH (08:11)
[2020-01-28] MEDS: FLUTICASONE 50 MCG NASAL SPRAY 16 GM BOTTLE BOTH NARES SCH (08:11)
[2020-01-28] MEDS: MULTIVITAMIN (CENTRUM) TABLET PO SCH (08:12)
[2020-01-28] MEDS: CHOLECALCIFEROL 1,000 UNIT TABLET PO SCH (08:12)
[2020-01-28] MEDS: NICOTINE 21 MG/24 HR PATCH TRANSDERM PRN (08:12)
[2020-01-28] MEDS: LACTOBACILLUS ACIDOPHILUS/BULGARICUS CAPLET PO SCH (08:12)
[2020-01-28] MEDS: MAGNESIUM CHLORIDE 64 MG TABLET PO SCH (08:12)
[2020-01-28] MEDS: LOSARTAN 25 MG TABLET PO SCH (08:13)
[2020-01-28] MEDS: APIXABAN 2.5 MG TABLET PO SCH ×2 (08:13→21:24)
[2020-01-28] MEDS: GABAPENTIN 300 MG CAPSULE PO SCH ×3 (08:13→21:23)
[2020-01-28] MEDS: SENNA 8.6 MG TABLET PO SCH (21:22)
[2020-01-28] MEDS: diphenhydrAMINE CAP 25 MG CAPSULE PO PRN (21:23)
[2020-01-28] MEDS: MELATONIN 3 MG TABLET PO PRN (21:23)
[2020-01-28] MEDS: allopurinoL 300 MG TABLET PO SCH (21:23)
[2020-01-29] MEDS: ALUMINUM/MAGNES/SIMETH MAX STR 30 ML UDCUP PO PRN (03:42)
[2020-01-29] MEDS: LEVOTHYROXINE 175 MCG TABLET PO SCH (06:20)
[2020-01-29] MEDS: ONDANSETRON ODT 4 MG TABLET PO PRN (06:20)
[2020-01-29] MEDS: FLUTICASONE 50 MCG NASAL SPRAY 16 GM BOTTLE BOTH NARES SCH (09:14)
[2020-01-29] MEDS: LACTOBACILLUS ACIDOPHILUS/BULGARICUS CAPLET PO SCH (09:15)
[2020-01-29] MEDS: GABAPENTIN 300 MG CAPSULE PO SCH ×3 (09:15→20:56)
[2020-01-29] MEDS: APIXABAN 2.5 MG TABLET PO SCH ×2 (09:15→20:56)
[2020-01-29] MEDS: MULTIVITAMIN (CENTRUM) TABLET PO SCH (09:15)
[2020-01-29] MEDS: LOSARTAN 25 MG TABLET PO SCH (09:15)
[2020-01-29] MEDS: SKIN HEALING OINT (AQUAPHOR) 50 GM TUBE TOP SCH (09:16)
[2020-01-29] MEDS: MAGNESIUM CHLORIDE 64 MG TABLET PO SCH (09:16)
[2020-01-29] MEDS: NICOTINE 21 MG/24 HR PATCH TRANSDERM PRN (09:16)
[2020-01-29] MEDS: CHOLECALCIFEROL 1,000 UNIT TABLET PO SCH (09:44)
[2020-01-29] MEDS: traMADol 50 MG TABLET PO PRN ×2 (14:33→20:56)
[2020-01-29] MEDS: MELATONIN 3 MG TABLET PO PRN (20:56)
[2020-01-29] MEDS: allopurinoL 300 MG TABLET PO SCH (20:59)
[2020-01-29] MEDS: SENNA 8.6 MG TABLET PO SCH (20:59)
[2020-01-29] MEDS: diphenhydrAMINE CAP 25 MG CAPSULE PO PRN (20:59)
[2020-01-30] MEDS: LEVOTHYROXINE 175 MCG TABLET PO SCH (05:45)
[2020-01-30] MEDS: traMADol 50 MG TABLET PO PRN ×3 (05:45→20:55)
[2020-01-30] MEDS: LACTOBACILLUS ACIDOPHILUS/BULGARICUS CAPLET PO SCH (08:24)
[2020-01-30] MEDS: LOSARTAN 25 MG TABLET PO SCH (08:24)
[2020-01-30] MEDS: CHOLECALCIFEROL 1,000 UNIT TABLET PO SCH (08:24)
[2020-01-30] MEDS: MULTIVITAMIN (CENTRUM) TABLET PO SCH (08:24)
[2020-01-30] MEDS: MAGNESIUM CHLORIDE 64 MG TABLET PO SCH (08:24)
[2020-01-30] MEDS: NICOTINE 21 MG/24 HR PATCH TRANSDERM PRN (08:25)
[2020-01-30] MEDS: GABAPENTIN 300 MG CAPSULE PO SCH ×3 (08:25→20:54)
[2020-01-30] MEDS: APIXABAN 2.5 MG TABLET PO SCH ×2 (08:25→20:54)
[2020-01-30] MEDS: FLUTICASONE 50 MCG NASAL SPRAY 16 GM BOTTLE BOTH NARES SCH (08:26)
[2020-01-30] MEDS: SKIN HEALING OINT (AQUAPHOR) 50 GM TUBE TOP SCH (08:26)
[2020-01-30] MEDS: NYSTATIN POWDER 15 GM BOTTLE TOP SCH ×2 (08:34→21:13)
[2020-01-30] MEDS: diphenhydrAMINE CAP 25 MG CAPSULE PO PRN (20:54)
[2020-01-30] MEDS: allopurinoL 300 MG TABLET PO SCH (20:54)
[2020-01-30] MEDS: MELATONIN 3 MG TABLET PO PRN (20:54)
[2020-01-30] MEDS: SENNA 8.6 MG TABLET PO SCH (21:13)
[2020-01-31] MEDS: LEVOTHYROXINE 175 MCG TABLET PO SCH (06:04)
[2020-01-31] MEDS: traMADol 50 MG TABLET PO PRN ×3 (06:04→21:25)
[2020-01-31] MEDS: FLUTICASONE 50 MCG NASAL SPRAY 16 GM BOTTLE BOTH NARES SCH (09:36)
[2020-01-31] MEDS: APIXABAN 2.5 MG TABLET PO SCH ×2 (09:36→21:04)
[2020-01-31] MEDS: GABAPENTIN 300 MG CAPSULE PO SCH ×3 (09:36→21:04)
[2020-01-31] MEDS: CHOLECALCIFEROL 1,000 UNIT TABLET PO SCH (09:37)
[2020-01-31] MEDS: MULTIVITAMIN (CENTRUM) TABLET PO SCH (09:37)
[2020-01-31] MEDS: MAGNESIUM CHLORIDE 64 MG TABLET PO SCH (09:37)
[2020-01-31] MEDS: SKIN HEALING OINT (AQUAPHOR) 50 GM TUBE TOP SCH (09:37)
[2020-01-31] MEDS: LOSARTAN 25 MG TABLET PO SCH (09:37)
[2020-01-31] MEDS: LACTOBACILLUS ACIDOPHILUS/BULGARICUS CAPLET PO SCH (09:37)
[2020-01-31] MEDS: NYSTATIN POWDER 15 GM BOTTLE TOP SCH ×2 (09:38→21:04)
[2020-01-31] MEDS: NICOTINE 21 MG/24 HR PATCH TRANSDERM PRN (11:40)
[2020-01-31] MEDS: allopurinoL 300 MG TABLET PO SCH (21:04)
[2020-01-31] MEDS: SENNA 8.6 MG TABLET PO SCH ×2 (21:04→21:21)
[2020-01-31] MEDS: MELATONIN 3 MG TABLET PO PRN (21:05)
[2020-01-31] MEDS: diphenhydrAMINE CAP 25 MG CAPSULE PO PRN (21:05)
[2020-02-01] MEDS: LEVOTHYROXINE 175 MCG TABLET PO SCH (05:48)
[2020-02-01] MEDS: traMADol 50 MG TABLET PO PRN ×3 (06:23→20:54)
[2020-02-01] MEDS: GABAPENTIN 300 MG CAPSULE PO SCH ×3 (08:47→20:54)
[2020-02-01] MEDS: LACTOBACILLUS ACIDOPHILUS/BULGARICUS CAPLET PO SCH (08:47)
[2020-02-01] MEDS: LOSARTAN 25 MG TABLET PO SCH (08:48)
[2020-02-01] MEDS: APIXABAN 2.5 MG TABLET PO SCH ×2 (08:48→20:54)
[2020-02-01] MEDS: FLUTICASONE 50 MCG NASAL SPRAY 16 GM BOTTLE BOTH NARES SCH (08:48)
[2020-02-01] MEDS: MAGNESIUM CHLORIDE 64 MG TABLET PO SCH (08:48)
[2020-02-01] MEDS: SKIN HEALING OINT (AQUAPHOR) 50 GM TUBE TOP SCH (08:48)
[2020-02-01] MEDS: MULTIVITAMIN (CENTRUM) TABLET PO SCH (08:48)
[2020-02-01] MEDS: CHOLECALCIFEROL 1,000 UNIT TABLET PO SCH (08:48)
[2020-02-01] MEDS: NYSTATIN POWDER 15 GM BOTTLE TOP SCH ×2 (08:51→21:03)
[2020-02-01] MEDS: NICOTINE 21 MG/24 HR PATCH TRANSDERM PRN (10:40)
[2020-02-01] MEDS: diphenhydrAMINE CAP 25 MG CAPSULE PO PRN (20:54)
[2020-02-01] MEDS: allopurinoL 300 MG TABLET PO SCH (20:54)
[2020-02-01] MEDS: MELATONIN 3 MG TABLET PO PRN (20:55)
[2020-02-01] MEDS: SENNA 8.6 MG TABLET PO SCH (21:04)
[2020-02-02] MEDS: LEVOTHYROXINE 175 MCG TABLET PO SCH (06:17)
[2020-02-02] MEDS: traMADol 50 MG TABLET PO PRN ×3 (06:18→21:10)
[2020-02-02] MEDS: NYSTATIN POWDER 15 GM BOTTLE TOP SCH ×2 (09:13→21:59)
[2020-02-02] MEDS: LACTOBACILLUS ACIDOPHILUS/BULGARICUS CAPLET PO SCH (09:13)
[2020-02-02] MEDS: APIXABAN 2.5 MG TABLET PO SCH ×2 (09:14→21:10)
[2020-02-02] MEDS: MAGNESIUM CHLORIDE 64 MG TABLET PO SCH (09:14)
[2020-02-02] MEDS: GABAPENTIN 300 MG CAPSULE PO SCH ×3 (09:14→21:10)
[2020-02-02] MEDS: LOSARTAN 25 MG TABLET PO SCH (09:14)
[2020-02-02] MEDS: MULTIVITAMIN (CENTRUM) TABLET PO SCH (09:14)
[2020-02-02] MEDS: CHOLECALCIFEROL 1,000 UNIT TABLET PO SCH (09:15)
[2020-02-02] MEDS: SKIN HEALING OINT (AQUAPHOR) 50 GM TUBE TOP SCH (09:17)
[2020-02-02] MEDS: FLUTICASONE 50 MCG NASAL SPRAY 16 GM BOTTLE BOTH NARES SCH (09:17)
[2020-02-02] MEDS: NICOTINE 21 MG/24 HR PATCH TRANSDERM PRN (09:40)
[2020-02-02] MEDS: allopurinoL 300 MG TABLET PO SCH (21:10)
[2020-02-02] MEDS: diphenhydrAMINE CAP 25 MG CAPSULE PO PRN (21:10)
[2020-02-02] MEDS: MELATONIN 3 MG TABLET PO PRN (21:10)
[2020-02-02] MEDS: SENNA 8.6 MG TABLET PO SCH (21:59)
[2020-02-03] MEDS: traMADol 50 MG TABLET PO PRN ×3 (05:53→21:44)
[2020-02-03] MEDS: LEVOTHYROXINE 175 MCG TABLET PO SCH (05:53)
[2020-02-03] MEDS: MULTIVITAMIN (CENTRUM) TABLET PO SCH (08:41)
[2020-02-03] MEDS: LACTOBACILLUS ACIDOPHILUS/BULGARICUS CAPLET PO SCH (08:41)
[2020-02-03] MEDS: APIXABAN 2.5 MG TABLET PO SCH ×2 (08:41→21:44)
[2020-02-03] MEDS: LOSARTAN 25 MG TABLET PO SCH (08:41)
[2020-02-03] MEDS: CHOLECALCIFEROL 1,000 UNIT TABLET PO SCH (08:41)
[2020-02-03] MEDS: MAGNESIUM CHLORIDE 64 MG TABLET PO SCH (08:41)
[2020-02-03] MEDS: GABAPENTIN 300 MG CAPSULE PO SCH ×3 (08:41→21:44)
[2020-02-03] MEDS: NICOTINE 21 MG/24 HR PATCH TRANSDERM PRN (08:48)
[2020-02-03] MEDS: SKIN HEALING OINT (AQUAPHOR) 50 GM TUBE TOP SCH (08:51)
[2020-02-03] MEDS: FLUTICASONE 50 MCG NASAL SPRAY 16 GM BOTTLE BOTH NARES SCH (08:51)
[2020-02-03] MEDS: NYSTATIN POWDER 15 GM BOTTLE TOP SCH ×2 (08:51→21:45)
[2020-02-03] MEDS: allopurinoL 300 MG TABLET PO SCH (21:44)
[2020-02-03] MEDS: SENNA 8.6 MG TABLET PO SCH (21:45)
[2020-02-03] MEDS: ALUMINUM/MAGNES/SIMETH MAX STR 30 ML UDCUP PO PRN (21:45)
[2020-02-04] MEDS: traMADol 50 MG TABLET PO PRN ×3 (05:23→20:46)
[2020-02-04] MEDS: LEVOTHYROXINE 175 MCG TABLET PO SCH (06:24)
[2020-02-04] MEDS: MAGNESIUM CHLORIDE 64 MG TABLET PO SCH (09:19)
[2020-02-04] MEDS: CHOLECALCIFEROL 1,000 UNIT TABLET PO SCH (09:19)
[2020-02-04] MEDS: GABAPENTIN 300 MG CAPSULE PO SCH ×3 (09:19→20:46)
[2020-02-04] MEDS: LACTOBACILLUS ACIDOPHILUS/BULGARICUS CAPLET PO SCH (09:19)
[2020-02-04] MEDS: NYSTATIN POWDER 15 GM BOTTLE TOP SCH ×2 (09:20→20:51)
[2020-02-04] MEDS: FLUTICASONE 50 MCG NASAL SPRAY 16 GM BOTTLE BOTH NARES SCH (09:20)
[2020-02-04] MEDS: MULTIVITAMIN (CENTRUM) TABLET PO SCH (09:20)
[2020-02-04] MEDS: SKIN HEALING OINT (AQUAPHOR) 50 GM TUBE TOP SCH (09:20)
[2020-02-04] MEDS: APIXABAN 2.5 MG TABLET PO SCH ×2 (09:20→20:46)
[2020-02-04] MEDS: NICOTINE 21 MG/24 HR PATCH TRANSDERM PRN (09:21)
[2020-02-04] MEDS: IBUPROFEN 600 MG TABLET PO PRN (09:25)
[2020-02-04] MEDS: LOSARTAN 25 MG TABLET PO SCH (09:25)
[2020-02-04] MEDS: diphenhydrAMINE CAP 25 MG CAPSULE PO PRN (20:46)
[2020-02-04] MEDS: allopurinoL 300 MG TABLET PO SCH (20:46)
[2020-02-04] MEDS: SENNA 8.6 MG TABLET PO SCH (20:47)
[2020-02-05] MEDS: LEVOTHYROXINE 175 MCG TABLET PO SCH (05:50)
[2020-02-05] MEDS: traMADol 50 MG TABLET PO PRN ×3 (05:52→20:30)
[2020-02-05] MEDS: GABAPENTIN 300 MG CAPSULE PO SCH ×3 (08:01→20:29)
[2020-02-05] MEDS: CHOLECALCIFEROL 1,000 UNIT TABLET PO SCH (08:01)
[2020-02-05] MEDS: MAGNESIUM CHLORIDE 64 MG TABLET PO SCH (08:02)
[2020-02-05] MEDS: MULTIVITAMIN (CENTRUM) TABLET PO SCH (08:02)
[2020-02-05] MEDS: APIXABAN 2.5 MG TABLET PO SCH ×2 (08:02→20:29)
[2020-02-05] MEDS: NYSTATIN POWDER 15 GM BOTTLE TOP SCH ×2 (08:03→20:32)
[2020-02-05] MEDS: FLUTICASONE 50 MCG NASAL SPRAY 16 GM BOTTLE BOTH NARES SCH (08:03)
[2020-02-05] MEDS: LOSARTAN 25 MG TABLET PO SCH (08:03)
[2020-02-05] MEDS: SKIN HEALING OINT (AQUAPHOR) 50 GM TUBE TOP SCH (08:03)
[2020-02-05] MEDS: LACTOBACILLUS ACIDOPHILUS/BULGARICUS CAPLET PO SCH (08:03)
[2020-02-05] MEDS: NICOTINE 21 MG/24 HR PATCH TRANSDERM PRN (09:33)
[2020-02-05] MEDS: IBUPROFEN 600 MG TABLET PO PRN (20:28)
[2020-02-05] MEDS: diphenhydrAMINE CAP 25 MG CAPSULE PO PRN (20:29)
[2020-02-05] MEDS: allopurinoL 300 MG TABLET PO SCH (20:30)
[2020-02-05] MEDS: MELATONIN 3 MG TABLET PO PRN (20:30)
[2020-02-05] MEDS: SENNA 8.6 MG TABLET PO SCH (20:32)
[2020-02-06] MEDS: LEVOTHYROXINE 175 MCG TABLET PO SCH (06:54)
[2020-02-06] MEDS: traMADol 50 MG TABLET PO PRN ×3 (06:54→20:40)
[2020-02-06] MEDS: FLUTICASONE 50 MCG NASAL SPRAY 16 GM BOTTLE BOTH NARES SCH (09:08)
[2020-02-06] MEDS: SKIN HEALING OINT (AQUAPHOR) 50 GM TUBE TOP SCH (09:08)
[2020-02-06] MEDS: MULTIVITAMIN (CENTRUM) TABLET PO SCH (09:09)
[2020-02-06] MEDS: LACTOBACILLUS ACIDOPHILUS/BULGARICUS CAPLET PO SCH (09:09)
[2020-02-06] MEDS: LOSARTAN 25 MG TABLET PO SCH (09:09)
[2020-02-06] MEDS: MAGNESIUM CHLORIDE 64 MG TABLET PO SCH (09:09)
[2020-02-06] MEDS: GABAPENTIN 300 MG CAPSULE PO SCH ×3 (09:09→20:40)
[2020-02-06] MEDS: APIXABAN 2.5 MG TABLET PO SCH ×2 (09:09→20:39)
[2020-02-06] MEDS: CHOLECALCIFEROL 1,000 UNIT TABLET PO SCH (09:09)
[2020-02-06] MEDS: NYSTATIN POWDER 15 GM BOTTLE TOP SCH ×2 (09:10→20:40)
[2020-02-06] MEDS: NICOTINE 21 MG/24 HR PATCH TRANSDERM PRN (09:15)
[2020-02-06] MEDS: SENNA 8.6 MG TABLET PO SCH (20:38)
[2020-02-06] MEDS: diphenhydrAMINE CAP 25 MG CAPSULE PO PRN (20:39)
[2020-02-06] MEDS: allopurinoL 300 MG TABLET PO SCH (20:39)
[2020-02-06] MEDS: MELATONIN 3 MG TABLET PO PRN (20:40)
[2020-02-07] MEDS: LEVOTHYROXINE 175 MCG TABLET PO SCH (06:28)
[2020-02-07] MEDS: traMADol 50 MG TABLET PO PRN ×3 (06:29→20:03)
[2020-02-07] MEDS: MAGNESIUM CHLORIDE 64 MG TABLET PO SCH (08:16)
[2020-02-07] MEDS: CHOLECALCIFEROL 1,000 UNIT TABLET PO SCH (08:16)
[2020-02-07] MEDS: LACTOBACILLUS ACIDOPHILUS/BULGARICUS CAPLET PO SCH (08:16)
[2020-02-07] MEDS: APIXABAN 2.5 MG TABLET PO SCH ×2 (08:17→20:03)
[2020-02-07] MEDS: GABAPENTIN 300 MG CAPSULE PO SCH ×3 (08:17→20:03)
[2020-02-07] MEDS: FLUTICASONE 50 MCG NASAL SPRAY 16 GM BOTTLE BOTH NARES SCH (08:17)
[2020-02-07] MEDS: LOSARTAN 25 MG TABLET PO SCH (08:17)
[2020-02-07] MEDS: MULTIVITAMIN (CENTRUM) TABLET PO SCH (08:17)
[2020-02-07] MEDS: SKIN HEALING OINT (AQUAPHOR) 50 GM TUBE TOP SCH (08:17)
[2020-02-07] MEDS: NYSTATIN POWDER 15 GM BOTTLE TOP SCH ×2 (08:18→20:04)
[2020-02-07] MEDS: NICOTINE 21 MG/24 HR PATCH TRANSDERM PRN (08:28)
[2020-02-07] MEDS: MELATONIN 3 MG TABLET PO PRN (20:02)
[2020-02-07] MEDS: allopurinoL 300 MG TABLET PO SCH (20:03)
[2020-02-07] MEDS: SENNA 8.6 MG TABLET PO SCH (20:04)
[2020-02-08 05:29] LABS: Basophils # 0.1 10*3/uL (0.0-0.2); Eosinophils % 0.8 % (0.00-10.9); Hematocrit 41.7 VOL% (35.7-47.0); Hemoglobin 13.1 GM/DL (12.0-16.0); Immature Granulocytes % 0.4 %; Immature Granulocytes Absolute 0.01 #; Lymphocytes # 1.1 10*3/uL (1.4-4.0); Lymphocytes % 43.1 % (21.3-54.2); Mean Corpuscular HGB Conc 31.4 GM/DL (32-36); Mean Corpuscular Volume 97.2 FL (87-102); Mean Platelet Volume 11.2 FL (9.6-12.0); Neutrophils % 40.7 % (38.7-73.9); Platelet Count 145 T/CUMM (130-400); Red Blood Count 4.29 MC/CUMM (3.8-5.5); Red Cell Distribution Width 16.5 % (9.3-17.3); White Blood Count 2.5 T/CUMM (4-12)
[2020-02-08 05:43] LABS: Osmolality,Calculated 273.8 MOS/KG (273-304)
[2020-02-08 05:52] LABS: Hypochromasia 1+; Microcytosis Slight; Ovalocytes Slight; Platelet Estimate Adequate
[2020-02-08] MEDS: LEVOTHYROXINE 175 MCG TABLET PO SCH (06:36)
[2020-02-08] MEDS: traMADol 50 MG TABLET PO PRN ×3 (06:36→21:09)
[2020-02-08] MEDS: MULTIVITAMIN (CENTRUM) TABLET PO SCH (09:29)
[2020-02-08] MEDS: CHOLECALCIFEROL 1,000 UNIT TABLET PO SCH (09:29)
[2020-02-08] MEDS: GABAPENTIN 300 MG CAPSULE PO SCH ×3 (09:29→21:08)
[2020-02-08] MEDS: NYSTATIN POWDER 15 GM BOTTLE TOP SCH ×2 (09:29→21:11)
[2020-02-08] MEDS: MAGNESIUM CHLORIDE 64 MG TABLET PO SCH (09:29)
[2020-02-08] MEDS: LACTOBACILLUS ACIDOPHILUS/BULGARICUS CAPLET PO SCH (09:30)
[2020-02-08] MEDS: LOSARTAN 25 MG TABLET PO SCH (09:30)
[2020-02-08] MEDS: APIXABAN 2.5 MG TABLET PO SCH ×2 (09:30→21:09)
[2020-02-08] MEDS: NICOTINE 21 MG/24 HR PATCH TRANSDERM PRN (09:31)
[2020-02-08] MEDS: FLUTICASONE 50 MCG NASAL SPRAY 16 GM BOTTLE BOTH NARES SCH (09:37)
[2020-02-08] MEDS: SKIN HEALING OINT (AQUAPHOR) 50 GM TUBE TOP SCH (09:38)
[2020-02-08] MEDS: MELATONIN 3 MG TABLET PO PRN (21:08)
[2020-02-08] MEDS: allopurinoL 300 MG TABLET PO SCH (21:09)
[2020-02-08] MEDS: diphenhydrAMINE CAP 25 MG CAPSULE PO PRN (21:09)
[2020-02-08] MEDS: SENNA 8.6 MG TABLET PO SCH (21:09)
[2020-02-09] MEDS: LEVOTHYROXINE 175 MCG TABLET PO SCH (07:16)
[2020-02-09] MEDS: traMADol 50 MG TABLET PO PRN ×2 (07:17→14:59)
[2020-02-09] MEDS: NICOTINE 21 MG/24 HR PATCH TRANSDERM PRN (08:40)
[2020-02-09] MEDS: GABAPENTIN 300 MG CAPSULE PO SCH ×3 (08:41→20:50)
[2020-02-09] MEDS: CHOLECALCIFEROL 1,000 UNIT TABLET PO SCH (08:41)
[2020-02-09] MEDS: LACTOBACILLUS ACIDOPHILUS/BULGARICUS CAPLET PO SCH (08:41)
[2020-02-09] MEDS: APIXABAN 2.5 MG TABLET PO SCH ×2 (08:42→20:50)
[2020-02-09] MEDS: MULTIVITAMIN (CENTRUM) TABLET PO SCH (08:42)
[2020-02-09] MEDS: LOSARTAN 25 MG TABLET PO SCH (08:42)
[2020-02-09] MEDS: MAGNESIUM CHLORIDE 64 MG TABLET PO SCH (08:42)
[2020-02-09] MEDS: FLUTICASONE 50 MCG NASAL SPRAY 16 GM BOTTLE BOTH NARES SCH (08:44)
[2020-02-09] MEDS: NYSTATIN POWDER 15 GM BOTTLE TOP SCH ×2 (08:44→20:51)
[2020-02-09] MEDS: SKIN HEALING OINT (AQUAPHOR) 50 GM TUBE TOP SCH (08:44)
[2020-02-09] MEDS: diphenhydrAMINE CAP 25 MG CAPSULE PO PRN (20:50)
[2020-02-09] MEDS: MELATONIN 3 MG TABLET PO PRN (20:50)
[2020-02-09] MEDS: SENNA 8.6 MG TABLET PO SCH (20:51)
[2020-02-09] MEDS: allopurinoL 300 MG TABLET PO SCH (20:51)
[2020-02-10] MEDS: traMADol 50 MG TABLET PO PRN ×3 (06:26→20:22)
[2020-02-10] MEDS: LEVOTHYROXINE 175 MCG TABLET PO SCH (06:26)
[2020-02-10] MEDS: GABAPENTIN 300 MG CAPSULE PO SCH ×3 (08:10→20:22)
[2020-02-10] MEDS: MAGNESIUM CHLORIDE 64 MG TABLET PO SCH (08:10)
[2020-02-10] MEDS: SKIN HEALING OINT (AQUAPHOR) 50 GM TUBE TOP SCH (08:10)
[2020-02-10] MEDS: FLUTICASONE 50 MCG NASAL SPRAY 16 GM BOTTLE BOTH NARES SCH (08:10)
[2020-02-10] MEDS: LOSARTAN 25 MG TABLET PO SCH (08:10)
[2020-02-10] MEDS: CHOLECALCIFEROL 1,000 UNIT TABLET PO SCH (08:11)
[2020-02-10] MEDS: LACTOBACILLUS ACIDOPHILUS/BULGARICUS CAPLET PO SCH (08:11)
[2020-02-10] MEDS: MULTIVITAMIN (CENTRUM) TABLET PO SCH (08:11)
[2020-02-10] MEDS: APIXABAN 2.5 MG TABLET PO SCH ×2 (08:11→20:22)
[2020-02-10] MEDS: NYSTATIN POWDER 15 GM BOTTLE TOP SCH ×2 (08:11→20:25)
[2020-02-10] MEDS: NICOTINE 21 MG/24 HR PATCH TRANSDERM PRN (08:11)
[2020-02-10] MEDS: allopurinoL 300 MG TABLET PO SCH (20:22)
[2020-02-10] MEDS: diphenhydrAMINE CAP 25 MG CAPSULE PO PRN (20:23)
[2020-02-10] MEDS: MELATONIN 3 MG TABLET PO PRN (20:23)
[2020-02-10] MEDS: SENNA 8.6 MG TABLET PO SCH (20:25)
[2020-02-11] MEDS: traMADol 50 MG TABLET PO PRN (06:10)
[2020-02-11] MEDS: LEVOTHYROXINE 175 MCG TABLET PO SCH (06:10)
[2020-02-11] MEDS: LACTOBACILLUS ACIDOPHILUS/BULGARICUS CAPLET PO SCH (09:48)
[2020-02-11] MEDS: MULTIVITAMIN (CENTRUM) TABLET PO SCH (09:48)
[2020-02-11] MEDS: CHOLECALCIFEROL 1,000 UNIT TABLET PO SCH (09:48)
[2020-02-11] MEDS: MAGNESIUM CHLORIDE 64 MG TABLET PO SCH (09:49)
[2020-02-11] MEDS: LOSARTAN 25 MG TABLET PO SCH (09:49)
[2020-02-11] MEDS: NICOTINE 21 MG/24 HR PATCH TRANSDERM PRN (09:49)
[2020-02-11] MEDS: FLUTICASONE 50 MCG NASAL SPRAY 16 GM BOTTLE BOTH NARES SCH (09:49)
[2020-02-11] MEDS: GABAPENTIN 300 MG CAPSULE PO SCH (09:49)
[2020-02-11] MEDS: APIXABAN 2.5 MG TABLET PO SCH (09:49)
[2020-02-11] MEDS: SKIN HEALING OINT (AQUAPHOR) 50 GM TUBE TOP SCH (09:50)
[2020-02-11] MEDS: IBUPROFEN 600 MG TABLET PO PRN (09:52)
[2020-02-11 10:01] VITALS: BP 115/72
[2020-02-11] MEDS: NYSTATIN POWDER 15 GM BOTTLE TOP SCH (10:02)
== END 2020-02-11 12:20 | disposition swing bed (61) | DRG 178 ==
LOC: SUATTDRO 15:11 → N.2E 15:11 → N.2W 10-05 15:15 → N.2E 10-05 15:48 → N.3E 10-10 09:13 → N.4E 11-24 11:04
PROVIDERS: ADMIT Internal Medicine; ATTEND Internal Medicine

== ENCOUNTER 2020-04-27 16:00 | Observation (INO) ==
[2020-04-27 17:23] LABS: Basophils # 0.1 10*3/uL (0.0-0.2); Basophils % 1.1 % (0.0-0.8); Eosinophils # 0.1 10*3/uL (0.0-0.87); Eosinophils % 1.8 % (0.00-10.9); Hematocrit 38.7 VOL% (35.7-47.0); Hemoglobin 12.5 GM/DL (12.0-16.0); Immature Granulocytes % 0.8 %; Immature Granulocytes Absolute 0.05 #; Lymphocytes % 15.8 % (21.3-54.2); Mean Corpuscular HGB Conc 32.3 GM/DL (32-36); Mean Corpuscular Volume 102.7 FL (87-102); Mean Platelet Volume 10.8 FL (9.6-12.0); Monocytes % 7.5 % (1.7-12.7); Platelet Count 240 T/CUMM (130-400); Red Blood Count 3.77 MC/CUMM (3.8-5.5); Red Cell Distribution Width 17.1 % (9.3-17.3); White Blood Count 6.3 T/CUMM (4-12)
[2020-04-27 17:36] LABS: Albumin 2.5 G/DL (3.4-5.0); Bilirubin,Total 0.9 MG/DL (0.2-1.0); Calcium 8.5 MG/DL (8.5-10.1); Osmolality,Calculated 283.8 MOS/KG (273-304); Total Protein 7.6 G/DL (6.4-8.3)
[2020-04-27] MEDS ORDERED: SODIUM CHLORIDE 0.9% 1,000 ML IV STA (17:51)
[2020-04-27] MEDS ORDERED: VANCOMYCIN INJ 1,000 MG in SODIUM CHLORIDE 0.9% 250 ML IV STA (18:21)
[2020-04-27] MEDS ORDERED: DEXTROSE 50% 25 GM/50 ML VIAL IV PRN (19:38)
[2020-04-27] MEDS ORDERED: GLUCAGON 1 MG VIAL IM PRN (19:38)
[2020-04-27] MEDS ORDERED: SODIUM CHLORIDE 0.9% 1,000 ML IV SCH (20:00)
[2020-04-27] MEDS ORDERED: PIPERACILLIN/TAZOBACTAM 3,375 MG in SODIUM CHLORIDE 0.9% 100 ML IV SCH (20:30)
[2020-04-27] MEDS ORDERED: diphenhydrAMINE 50 MG/1 ML VIAL IV STA (20:34)
[2020-04-27] MEDS ORDERED: allopurinoL 300 MG TABLET PO SCH (21:30)
[2020-04-27] MEDS: GABAPENTIN 300 MG CAPSULE PO SCH (22:13)
[2020-04-27] MEDS: MEROPENEM 500 MG in SODIUM CHLORIDE 0.9% 100 ML IV SCH (22:26)
[2020-04-27] MEDS ORDERED: VANCOMYCIN INJ 1,000 MG in SODIUM CHLORIDE 0.9% 250 ML IV ONE (22:30)
[2020-04-28] MEDS: MEROPENEM 500 MG in SODIUM CHLORIDE 0.9% 100 ML IV SCH ×2 (05:51→14:36)
[2020-04-28 05:53] LABS: Basophils # 0.1 10*3/uL (0.0-0.2); Basophils % 1.5 % (0.0-0.8); Eosinophils # 0.4 10*3/uL (0.0-0.87); Eosinophils % 6.5 % (0.00-10.9); Hematocrit 36.1 VOL% (35.7-47.0); Hemoglobin 11.7 GM/DL (12.0-16.0); Immature Granulocytes % 0.8 %; Immature Granulocytes Absolute 0.05 #; Lymphocytes # 1.1 10*3/uL (1.4-4.0); Lymphocytes % 16.1 % (21.3-54.2); Mean Corpuscular HGB Conc 32.4 GM/DL (32-36); Monocytes % 7.4 % (1.7-12.7); Neutrophils % 67.7 % (38.7-73.9); Platelet Count 203 T/CUMM (130-400); Red Blood Count 3.47 MC/CUMM (3.8-5.5); White Blood Count 6.6 T/CUMM (4-12)
[2020-04-28 06:27] LABS: Calcium 7.9 MG/DL (8.5-10.1); Osmolality,Calculated 287.4 MOS/KG (273-304); Risk Ratio 5.95; Thyroid Stimulating Hormone 3.84 uIU/ml (0.358-3.74)
[2020-04-28] MEDS ORDERED: LEVOTHYROXINE 150 MCG TABLET PO SCH (06:30)
[2020-04-28] MEDS: GABAPENTIN 300 MG CAPSULE PO SCH ×2 (08:50→14:36)
[2020-04-28] MEDS ORDERED: INFLUENZA VIRUS VACCINE 0.5 ML SYRINGE IM ONE (09:00)
[2020-04-28] MEDS ORDERED: ENOXAPARIN 40 MG/0.4 ML SYRINGE SUBCUT SCH (09:00)
[2020-04-28] MEDS ORDERED: FUROSEMIDE 40 MG/4 ML VIAL IV ONE (09:30)
[2020-04-28] MEDS ORDERED: diphenhydrAMINE CAP 25 MG CAPSULE PO ONE (10:00)
[2020-04-28] MEDS ORDERED: DALBAVANCIN 1,500 MG in DEXTROSE 5% 500 ML IV ONE (10:00)
[2020-04-28 16:32] VITALS: BP 103/51
[2020-04-28] MEDS ORDERED: VANCOMYCIN INJ 2,000 MG in SODIUM CHLORIDE 0.9% 500 ML IV SCH (21:00)
== END 2020-04-28 17:06 | disposition home health service (06) ==
LOC: EDUNIT# → N.ED 16:00 → INTOOBSV 19:38 → N.EDINP 19:38 → N.3E 20:50
PROVIDERS: ADMIT Internal Medicine; ATTEND Internal Medicine

== ENCOUNTER 2020-05-07 16:16 | Inpatient (IN) ==
[2020-05-07] MEDS ORDERED: MEROPENEM 500 MG in SODIUM CHLORIDE 0.9% 100 ML IV ONE (18:20)
[2020-05-07 18:30] LABS: Basophils # 0.1 10*3/uL (0.0-0.2); Basophils % 0.8 % (0.0-0.8); Eosinophils # 0.1 10*3/uL (0.0-0.87); Eosinophils % 0.7 % (0.00-10.9); Hematocrit 41.8 VOL% (35.7-47.0); Hemoglobin 13.7 GM/DL (12.0-16.0); Immature Granulocytes % 0.8 %; Immature Granulocytes Absolute 0.06 #; Lymphocytes # 0.8 10*3/uL (1.4-4.0); Lymphocytes % 10.2 % (21.3-54.2); Mean Corpuscular HGB Conc 32.8 GM/DL (32-36); Mean Corpuscular Volume 103.2 FL (87-102); Mean Platelet Volume 10.5 FL (9.6-12.0); Monocytes % 6.3 % (1.7-12.7); Neutrophils % 81.2 % (38.7-73.9); Platelet Count 232 T/CUMM (130-400); Red Blood Count 4.05 MC/CUMM (3.8-5.5); Red Cell Distribution Width 15.5 % (9.3-17.3); White Blood Count 7.7 T/CUMM (4-12)
[2020-05-07 18:49] LABS: Albumin 2.7 G/DL (3.4-5.0); Bilirubin,Total 1.1 MG/DL (0.2-1.0); Calcium 8.4 MG/DL (8.5-10.1); Total Protein 7.7 G/DL (6.4-8.3)
[2020-05-07] MEDS ORDERED: GLUCAGON 1 MG VIAL IM PRN (19:52)
[2020-05-07] MEDS ORDERED: DEXTROSE 50% 25 GM/50 ML VIAL IV PRN (19:52)
[2020-05-07] MEDS ORDERED: ONDANSETRON 4 MG/2 ML VIAL IV PRN (19:52)
[2020-05-07] MEDS: SODIUM CHLORIDE 0.9% 1,000 ML IV SCH (23:01)
[2020-05-07] MEDS: GABAPENTIN 300 MG CAPSULE PO SCH (23:02)
[2020-05-07] MEDS: ENOXAPARIN 40 MG/0.4 ML SYRINGE SUBCUT SCH (23:02)
[2020-05-07] MEDS: allopurinoL 300 MG TABLET PO SCH (23:02)
[2020-05-07] MEDS: diphenhydrAMINE CAP 25 MG CAPSULE PO PRN (23:15)
[2020-05-07] MEDS: DOXYCYCLINE HYCLATE INJ 100 MG in SODIUM CHLORIDE 0.9% 100 ML IV SCH (23:39)
[2020-05-08] MEDS ORDERED: INFLUENZA VIRUS VACCINE 0.5 ML SYRINGE IM ONE (02:36)
[2020-05-08] MEDS: LEVOTHYROXINE 150 MCG TABLET PO SCH (05:59)
[2020-05-08 06:18] LABS: Calcium 7.7 MG/DL (8.5-10.1); Osmolality,Calculated 283.1 MOS/KG (273-304)
[2020-05-08 06:19] LABS: Basophils # 0.1 10*3/uL (0.0-0.2); Basophils % 1.8 % (0.0-0.8); Eosinophils # 0.4 10*3/uL (0.0-0.87); Immature Granulocytes % 0.6 %; Immature Granulocytes Absolute 0.03 #; Lymphocytes # 1.3 10*3/uL (1.4-4.0); Lymphocytes % 25.7 % (21.3-54.2); Mean Corpuscular HGB Conc 32.1 GM/DL (32-36); Mean Corpuscular Volume 104.6 FL (87-102); Mean Platelet Volume 10.7 FL (9.6-12.0); Neutrophils % 55.9 % (38.7-73.9); Platelet Count 205 T/CUMM (130-400); Red Blood Count 3.25 MC/CUMM (3.8-5.5); Red Cell Distribution Width 15.6 % (9.3-17.3)
[2020-05-08 06:23] LABS: Hemoglobin 10.9 GM/DL (12.0-16.0)
[2020-05-08 06:44] LABS: Eosinophils 3 % (0-10); Hypochromasia Slight; Lymphocytes 25 % (20-55); Macrocytosis Slight; Metamyelocytes 1 %; Platelet Estimate Normal; Segmented Neutrophils 66 % (50-85); Total Cells Counted 100
[2020-05-08] MEDS: SODIUM CHLORIDE 0.9% 1,000 ML IV SCH ×2 (07:24→21:51)
[2020-05-08] MEDS: GABAPENTIN 300 MG CAPSULE PO SCH ×3 (11:07→20:48)
[2020-05-08] MEDS: DOXYCYCLINE HYCLATE INJ 100 MG in SODIUM CHLORIDE 0.9% 100 ML IV SCH ×2 (11:07→20:49)
[2020-05-08] MEDS: LOSARTAN 25 MG TABLET PO SCH (11:07)
[2020-05-08] MEDS: PANTOPRAZOLE 40 MG TABLET PO SCH (11:07)
[2020-05-08] MEDS: allopurinoL 300 MG TABLET PO SCH (20:48)
[2020-05-08] MEDS: ENOXAPARIN 40 MG/0.4 ML SYRINGE SUBCUT SCH (20:49)
[2020-05-08] MEDS: diphenhydrAMINE CAP 25 MG CAPSULE PO PRN (21:50)
[2020-05-09] MEDS: LEVOTHYROXINE 150 MCG TABLET PO SCH (07:35)
[2020-05-09] MEDS: SODIUM CHLORIDE 0.9% 1,000 ML IV SCH (07:37)
[2020-05-09] MEDS: DOXYCYCLINE HYCLATE INJ 100 MG in SODIUM CHLORIDE 0.9% 100 ML IV SCH (10:24)
[2020-05-09] MEDS: PANTOPRAZOLE 40 MG TABLET PO SCH (10:25)
[2020-05-09] MEDS: LOSARTAN 25 MG TABLET PO SCH (10:25)
[2020-05-09] MEDS: GABAPENTIN 300 MG CAPSULE PO SCH ×2 (10:25→14:59)
[2020-05-09] MEDS ORDERED: NICOTINE 21 MG/24 HR PATCH TRANSDERM PRN (10:37)
[2020-05-09] MEDS ORDERED: TUBERCULIN SKIN TEST 0.1 ML SYRINGE INTRADERM ONE (12:08)
[2020-05-09] MEDS ORDERED: DOXYCYCLINE HYCLATE 100 MG CAPSULE PO SCH (17:00)
[2020-05-09 17:14] VITALS: BP 133/62
== END 2020-05-09 17:32 | DRG 602 ==
LOC: EDBD → EDUNIT# → N.ED 16:16 → N.EDINP 19:52 → INTOOBSV 19:52 → SUATTDRO 21:02 → N.3E 21:05
PROVIDERS: ADMIT Emergency Medicine; ATTEND Internal Medicine Geriatric Medicine